=== PATIENT | male | born 1955 | race Caucasian/White ===

== ENCOUNTER 2018-12-13 10:29 | Day surgery (SDC) | payer OTHER, SELFPAY ==
--- NOTE | 2018-12-13 | PATH_ITS ---
[facility] Accession Number: [id number] . 01 Material submitted: . PART A: CECAL POLYP PART B: TRANSVERSE COLON POLYPS PART C: SIGMOID COLON POLYP . 02 Diagnosis: A. Cecal Polyp: Tubular adenoma; negative for high-grade dysplasia. . B. Transverse Colon Polyps: Portions of tubular adenoma x2; negative for high-grade dysplasia. . C. Sigmoid Colon Polyp: Serrated lesion, favor hyperplastic polyp. MRV/12/15/2018 . 02 Electronically signed: . Matilda Lee MD, Pathologist NPI- [id number] . 01 Gross description: . Part A: CECAL POLYP: Received in formalin is 1 fragment(s) of rowley, soft tissue measuring 0.4 x 0.2 x 0.2 cm submitted entirely in 1 cassette(s) Part B: TRANSVERSE COLON POLYPS: Received in formalin are 2 fragment(s) of rowley, soft tissue measuring 0.4 x 0.4 x 0.4 cm to 0.4 x 0.3 x 0.3 cm submitted entirely in 1 cassette(s) Part C: SIGMOID COLON POLYP: Received in formalin is 1 fragment(s) of rowley, soft tissue measuring 0.4 x 0.3 x 0.3 cm submitted entirely in 1 cassette(s) /CKI /CKI . 02 Pathologist provided ICD-10: K63.5 . 02 CPT . 040157, 931595, [id number] Performed at: [facility] [address], [place], [place] [id number] MD Rolando Davis MD Phone: [phone] [facility]formed at: [facility] [address] [place], [place] [id number] MD Regi Alanis MD Phone: [phone]
--- NOTE | 2018-12-13 08:20 | PM.HP.1 ---
History of Present Illness Date Patient Seen: 12/13/18 Chief complaint: [id number] Narrative: 63-year-old male here for colon polyp surveillance. Prior colonoscopy done 2013 with colon polyps. Report is not available. Meds Home Medications Medication Instructions Recorded Confirmed Type amlodipine [Norvasc] 5 mg PO QDAY #0 03/04/17 History losartan 1 tab PO DAILY 12/13/18 12/13/18 History rosuvastatin 1 tab PO DAILY 12/13/18 12/13/18 History tramadol 1 tab PO PRN PRN 12/13/18 12/13/18 History Allergies Allergy/AdvReac Type Severity Reaction Status Date / Time No Known Drug Allergies Allergy Unknown Verified 12/13/18 10:46 [NO KNOWN DRUG ALLERGIES] Exam Narrative Exam Narrative: General: Patient is overweight, not in apparent distress Cardiovascular: Regular rate and rhythm, no murmurs, rubs, or gallops; no evidence of edema; no palpable abdominal aortic aneurysm Gastrointestinal: Normoactive bowel sounds, soft, nontender, nondistended, no rebound tenderness, no hepatosplenomegaly, no evidence of hernia Assessment & Plan Assessment Narrative: 63-year-old male with history of colon polyps in 2013 here for polyp surveillance Regarding the procedure(s), the risks and potential complications, benefits, and alternatives (including not doing the procedure) were discussed with the patient. The risks include but are not limited to bleeding, splenic injury, infection, perforation which may require surgical intervention, missed lesions, and adverse reactions to sedative medicines. After a question and answer period, the patient agreed to proceed with the procedure(s) and gives informed consent.
[2018-12-13] MEDS: SODIUM CHLORIDE 0.9% 1,000 ML 70 ML IV (10:45)
[2018-12-13 10:47] VITALS: BP 169/80; PULSE 75; RESP 16; TEMP 37; O2SAT 97; BMI 35.2
[2018-12-13] MEDS: fentaNYL 250 MCG/5 ML INJ IV (11:21)
[2018-12-13] MEDS: MIDAZOLAM 5 MG/5 ML VIAL IV (11:23)
--- NOTE | 2018-12-13 11:31 | PM.OP.ENDO ---
Operative Date/Time/Diagnoses Date of procedure: 12/13/18 Procedure Notes Procedure in detail: Surgeon: Haile Aguillon MD Procedure: Colonoscopy with polypectomy Preoperative diagnosis: Colon polyp surveillance Postoperative diagnosis: Colon polyps x4 status post polypectomy, sigmoid diverticulosis, grade 2 internal hemorrhoids Medications: Conscious sedation using 6 mg IV of Midazolam and 100 mcg IV of Fentanyl Preanesthesia Assessment An H and P was performed/updated and the Px?s ASA class is 2. The procedure was discussed in detail with the patient. The potential risks and complications including infection, bleeding, missed lesions, perforation, need for surgery in case of perforation, prolonged hospital stay, and were explained. A brief question and answer period was allotted and once all questions were answered, informed consent was obtained. The patient was brought back to the procedure room and placed on standard monitoring. The patient?s vital signs were monitored continuously throughout the entire procedure. Prior to starting, a timeout was performed to confirm the patient?s identity, allergies, medications, and procedure. Procedure in detail The patient was placed in left lateral decubitus position and once adequate sedation was obtained a VIC was performed. The digital rectal examination did not reveal any palpable lesions. The tip of the colonoscope was placed in the anal canal and advanced without difficulty all the way to the cecum which was identified by the appendiceal orifice and the ileocecal valve. Careful examination of all yanes of the colon was performed with irrigation of any residual stool. In the cecum, there was note of a 5 mm sessile polyp which was removed by means of cold snare. Resection and retrieval was complete with minimal bleeding In the transverse colon, there was note of 2 sessile polyps measuring 2-3 mm which were removed by means of cold Jumbo forceps. Resection and retrieval was complete with minimal bleeding In the sigmoid colon there was note of a sessile polyp measuring 3 mm which was removed by means of cold Jumbo forceps. Resection and retrieval was complete with minimal bleeding There was note of multiple medium-sized diverticula in the sigmoid colon Retroflexion was performed in the rectum which revealed grade 2 internal hemorrhoids The patient tolerated the procedure well and will be brought back to the recovery area to be discharged once criteria are met. The prep was judged to be good/excellent and adequate to identify polyps less than 5 mm. The withdrawal time was 9 min. The total physician intraservice time was 13 min. Complications There were no complications and estimated blood loss was minimal. Recommendations: Resume previous diet Continue outPx medications Follow up pathology results Repeat colonoscopy in 3 or 5 years depending on pathology results An emergency contact number was given to the patient for any complications related to the procedure
[2018-12-13 11:33] VITALS: BP 121/79; PULSE 90; RESP 16; TEMP 36.6; O2SAT 94
--- NOTE | 2018-12-13 11:36 | PM.DS.1 ---
History of Present Illness Chief complaint: [id number] Narrative: 63-year-old male here for colon polyp surveillance. Prior colonoscopy done 2012 with colon polyps. Report is not available. Discharge Providers Primary care physician: Mick Bunch MD Consults: 12/13/18 10:55 Consult to Respiratory Therapy Evaluate & Treat Comment: Physician Instructions: Evaluate and treat Discharge provider: Haile Aguillon MD Discharge Date: 12/13/18 Exam Vital Signs (past 8 hours): - 12/13/18 10:47 Temperature 98.6 F Pulse Rate 75 Respiratory Rate 16 Blood Pressure 169/80 H Pulse Oximetry 97 Oxygen Delivery Method Room Air Narrative Exam Narrative: General: Patient is obese, not in apparent distress Cardiovascular: Regular rate and rhythm, no murmurs, rubs, or gallops; no evidence of edema; no palpable abdominal aortic aneurysm Gastrointestinal: Normoactive bowel sounds, soft, nontender, nondistended, no rebound tenderness, no hepatosplenomegaly, no evidence of hernia Discharge Plan Discharge Plan Discharge comment: We will discharge you with a copy of your procedure report Discharge Med Rec/Prescriptions Prescriptions: Continued tramadol 50 mg tablet 1 tab PO PRN PRN (Reason: Pain, Moderate) RF: 0 losartan 100 mg tablet 1 tab PO DAILY RF: 0 rosuvastatin 10 mg tablet 1 tab PO DAILY RF: 0 Follow up/Referrals: Mick Bunch MD [Primary Care Provider] - Discharge Orders: Discharge (Order); Ordered 12/13/18 Ordered By: Haile Aguillon Provider Discharge Instructions Diet: Diet as Tolerated Visit Report/Discharge Packet Stand Alone Forms: Colonoscopy Result: [facility], Surgery Discharge Discharge Data Primary Care Provider: Mick Bunch V Attending Provider: Haile Aguillon
[2018-12-13 11:38] VITALS: BP 128/76; PULSE 87; RESP 15; O2SAT 92
[2018-12-13 11:41] VITALS: BP 125/77; PULSE 88; RESP 16; TEMP 36.6; O2SAT 93
[2018-12-13 11:55] VITALS: BP 130/76; PULSE 91; RESP 15; TEMP 36.7; O2SAT 95
== END 2018-12-13 12:01 | disposition home or self-care (01) ==
LOC: ENDO 10:31
PROVIDERS: PCP Internal Medicine; Visit Provider Internal Medicine Gastroenterology
PROC: 0DJD8ZZ Inspection of Lower Intestinal Tract, Via Natural or Artificial Opening Endoscopic (ICD-10-PCS; CPT 45378; principal; 2018-12-13 11:30)
DX: Z86.010 Personal history of colon polyps (principal); K57.30 Diverticulosis of large intestine without perforation or abscess without bleeding; K64.1 Second degree hemorrhoids; D12.0 Benign neoplasm of cecum; D12.3 Benign neoplasm of transverse colon; D12.5 Benign neoplasm of sigmoid colon
CPT/HCPCS: 45385; 45380; J2250; J3010

== ENCOUNTER → 2019-02-05 18:10 | Outpatient (CLI) | payer OTHER, SELFPAY ==
--- NOTE | 2019-02-05 18:15 | DI.MRI.S_ITS ---
PROCEDURE: MR KNEE RT WO CON INDICATIONS: RIGHT KNEE PAIN TECHNIQUE: Noncontrast sagittal PD fast spin echo and T2 fast spin echo with fat saturation, sagittal 3-D FLASH with fat saturation; coronal T1 spin echo and PD fast spin echo with fat saturation, and axial PD fast spin echo with fat saturation through the knee. COMPARISON: [facility], CR, XR KNEE ARTHRITIC SERIES BI, 01/15/2019, 7:08. FINDINGS: Image quality: Excellent. Menisci: There is extensive degenerative tearing of the medial meniscus including an inferior flap tear involving the body and posterior horn with mild herniation into the medial gutter. Degenerative signal extends in the posterior horn to the meniscal root ligament without rupture. The lateral meniscus demonstrates mild degenerative signal Cruciate ligaments: The anterior cruciate ligament is attenuated in appearance with intermediate signal intensity compatible with sequelae of a prior sprain or chronic myxoid degeneration. The majority of the fibers appear intact. The posterior cruciate ligament appears intact. Medial structures: The medial collateral ligament appears intact. The semimembranosus tendon insertions and meniscocapsular junction appear intact. Visualized portions of the pes anserinus tendons appear intact without associated bursal fluid collections. Lateral structures: The lateral collateral ligament, long and short heads of the biceps femoris tendon appear intact. The popliteus tendon appears intact. Iliotibial band appears normal. Anterior structures: The quadriceps and patellar tendons appear intact. Patellar alignment is normal. No femoral trochlear dysplasia or ventral trochlear prominence. No edema in the infrapatellar fat pad. Bones and cartilage: No bone marrow contusions or fractures. There is tricompartmental osteophytosis. Moderate cartilage thinning demonstrated in the medial compartment with chondral fissuring associated with subchondral edema along the medial femoral condyle and medial tibial plateau. In the lateral compartment, there is mild cartilage thinning with superficial chondral fissuring. In the patellofemoral compartment, there is mild to moderate cartilage thinning with superficial chondral fissuring. There cystic changes within the proximal tibia adjacent to the PCL insertion compatible with ganglion cysts. Joint space: There is p a small joint effusion. There are tiny filling defects in the suprapatellar recess compatible with small joint bodies or synovitis. There is a moderate-sized Gan's cyst with internal filling defects compatible with small joint bodies. Normal appearing synovial plicae are incidentally noted. IMPRESSION: 1. Extensive degenerative tearing of the medial meniscus as described. 2. Tricompartmental osteoarthritic changes most prominent within the medial compartment. 3. Small joint effusion with small joint bodies or synovitis in the suprapatellar recess. 4. Moderate-sized Gan's cyst with multiple small internal joint bodies. Dictated by: Rolando Sow M.D. on 02/06/2019 at 16:49 Approved by: Rolando Sow M.D. on 02/06/2019 at 16:57
== END ==
PROVIDERS: PCP Internal Medicine; Visit Provider Orthopaedic Surgery
DX: M25.561 Pain in right knee (principal); M23.221 Derangement of posterior horn of medial meniscus due to old tear or injury, right knee; M17.11 Unilateral primary osteoarthritis, right knee; M25.461 Effusion, right knee; M71.21 Synovial cyst of popliteal space [Baker], right knee
CPT/HCPCS: 73721

== ENCOUNTER → 2019-02-28 17:17 | Outpatient (CLI) | payer OTHER, SELFPAY ==
[2019-02-28 17:54] LABS: Add Manual Diff / Slide Review NO; Basophils Absolute Auto 100 /uL (0-100); Basophils Percent Auto 0.8 % (0-2); Eosinophils Absolute Auto 400 /uL (0-450); Eosinophils Percent Auto 4.9 % (2-4); Hematocrit 41.8 % (41-53); Hemoglobin 13.9 g/dL (13.5-17.5); Lymphocytes Absolute Auto 2800 /uL (1100-4500); Lymphocytes Percent Auto 35.9 % (25-40); Mean Corpuscular HGB Conc 33.3 % (30-36); Mean Corpuscular Hemoglobin 30.1 PG (26-34); Mean Corpuscular Volume 90.2 fL (80-100); Monocytes Absolute Auto 1100 /uL (0-900); Monocytes Percent Auto 14.1 % (3-14); Neutrophils Absolute Auto 3500 /uL (1500-7000); Neutrophils Percent Auto 44.3 % (50-75); Platelet Count 235 X10^3/uL (150-400); Red Blood Cell Count 4.63 X10^6/uL (4.5-5.9); Red Cell Distribution Width 13.6 % (11.6-14.8); White Blood Cell Count 7.8 X10^3/uL (4.5-11.0)
[2019-02-28 18:31] LABS: Carbon Dioxide 27 mmol/L (22-32); Chloride 105 mmol/L (98-107); HEMOLYSIS < 15 (0-50); Potassium 4.6 mmol/L (3.4-5.1); Sodium 141 mmol/L (137-145)
== END ==
PROVIDERS: PCP Internal Medicine; Visit Provider Orthopaedic Surgery
DX: M17.10 Unilateral primary osteoarthritis, unspecified knee (principal); Z01.818 Encounter for other preprocedural examination; Z01.812 Encounter for preprocedural laboratory examination
CPT/HCPCS: 36415; 80051; 85025

== ENCOUNTER 2019-04-11 07:03 | Inpatient (IN) | payer OTHER, SELFPAY ==
[2019-03-26 07:24] VITALS: BMI 34.4
[2019-04-11] VITALS (14 sets, daily range): BP systolic 104–156; BP diastolic 51–89; PULSE 58–77; RESP 12–20; TEMP 36.1–36.9; O2SAT 93–98; BMI 34.4
--- NOTE | 2019-04-11 06:00 | DI.RAD.S_ITS ---
PROCEDURE: XR KNEE RT 1TO2V INDICATIONS: RIGHT TOTAL KNEE TECHNIQUE: 2 view(s) of the knee acquired. COMPARISON: None. FINDINGS: Bones: Patient is status post knee joint arthroplasty. Hardware components are in expected positions. Visualized bony structures are intact. Soft tissues: Overlying postoperative changes are noted. IMPRESSION: Post right total knee arthroplasty changes with anatomic right knee alignment. Dictated by: Bin Bernal M.D. on 04/11/2019 at 11:23 Approved by: Bin Bernal M.D. on 04/11/2019 at 11:23
--- NOTE | 2019-04-11 08:33 | PM.PREOP ---
Pre-operative Note Interval Note History & Physical reviewed/Exam performed by Physician: Yes Changes to H&P: No
[2019-04-11] MEDS: LACTATED RINGERS 1,000 ML 42 ML IV ×2 (08:34→09:43)
[2019-04-11] MEDS: MIDAZOLAM 2 MG/2 ML VIAL IV (08:35)
--- NOTE | 2019-04-11 08:35 | P.OP_ITS ---
Operative Date/Time/Diagnoses Date of procedure: 04/11/19 Time of procedure: 10:14 Pre-op diagnosis: Right knee osteoarthritis Post-op diagnosis: same Procedure & Clinicians Procedure: Right total knee arthroplasty Same procedure as scheduled: Yes Indications: The patient presents today for total knee arthroplasty after failure of conservative treatment. The nature of the procedure including the risks and benefits, alternatives, postoperative course and expected outcome were discussed and all questions answered. Consent was obtained. Operative site confirmed and marked. Surgeon: Rolando Briggs Director Professional Services: Surinder Linton Anesthesia Type: Spinal and Local Operative Notes Findings: Severe osteoarthritis with varus alignment. Closure Type: primary Specimen(s): none sent Prosthetic devices, grafts, tissues, transplants, or devices: [employer] Amy BCS: 6 femoral component, 5 tibial component, 9 mm BCS polyethylene tray and 35 x 9 mm round patella Applied: implant(s) Estimated Blood Loss (mL): 50 Blood products transfused: none Tourniquet time (min): 23 Procedure in detail: The patient was taken to the operative suite and placed under spinal anesthesia. The patient was given prophylactic antibiotics prior to surgery. The patient was also given tranexamic acid, 1 g, just prior to surgery for postoperative hemostasis. The lateral knee was prepped and the joint injected with 20 mL of 1% Lidocaine with epinephrine. The knee was then prepped and draped in usual sterile fashion. The leg was exsanguinated with an Esmarch dressing and the tourniquet raised to 250 torr. A 15 cm anterior incision was made. Next a medial trivector arthrotomy was made. The extensor mechanism was marked to ensure accurate repair. Initial exposing dissection was carried out medially and laterally. The knee was then extended and the patellar thickness was measured and a cut made removing approximately 9 mm of bone with a goal of restoring normal patellar thickness. The patella was then sized and drilled. Some excess lateral bone was excised and the patellofemoral ligament released. The tourniquet was then released. The knee was then flexed and the [employer] femoral guide was placed. The anterior pins were placed and the distal rotation holes drilled. The distal cutting guide was placed and the templated distal femoral cut was made. The templating cutting block was then placed and the anterior, posterior and chamfer cuts made. The [employer] tibial guide was placed and the alignment checked along the axis of the proximal tibial with a logan. The proximal tibial cut was then made with an oscillating saw. All meniscus and bony debris was then removed. Flexion extension gaps were checked. No specific balancing was required other than routine exposure and removal of osteophytes. The soft tissues were then injected with a combination of 20 mL of half percent Marcaine with epinephrine and 20 mL of Exparel. The trial components were then placed. The knee went into full extension and flexion beyond 120?. There was excellent medial- lateral balance throughout motion. Patellar tracking was excellent. The trial components were removed and size is confirmed for the final implants. The knee was then exsanguinated with an Esmarch dressing and the tourniquet reapplied for cementing. The knee was cleansed with Pulsavac irrigation and dried. The final components were cemented in with high viscosity vacuum mixed bone cement with antibiotics. The knee was held in extension and the patellar clamp until the cement had adequately cured. The knee was then irrigated with dilute Betadine solution. The extensor mechanism was closed with 5 interrupted #1 Vicryl sutures in 90 degrees of flexion. The joint was then injected with a combination of 1 g of tranexamic acid and 20 mL of quarter percent Marcaine with epinephrine. The subcutaneous tissue was closed with 2-0 Vicryl. The skin was closed with larissa and surgical adhesive. An Aquacel dressing and Herb wrap were then applied. Complications: none Condition: stable Disposition: PACU Plan for aftercare: [facility] protocol for total knee arthroplasty.
[2019-04-11] MEDS: CEFAZOLIN 2 GM/100 ML FROZ.PIGGY IV ×2 (08:40→16:01)
[2019-04-11] MEDS: LIDOCAINE 1% W/EPI INJ 20 ML INJ (09:00)
[2019-04-11] MEDS: TRANEXAMIC ACID 1,000 MG VIAL 1000 MG INJ (09:00)
--- NOTE | 2019-04-11 09:14 | SUR.OPER ---
Supine on padded OR bed. Pillow under head, arms secured on padded armboards <90 degree abduction. Safety belt across torso. Non-operative leg secured with tape over blanket over lower leg. Operative leg secured in DeMayo/Mikhail positioner. Foam padded brace at thigh of operative leg.
[2019-04-11] MEDS: BUPIVACAINE 0.25% W/ EPI 30 ML VIAL 60 ML INJ (09:24)
[2019-04-11] MEDS: BUPIVACAINE LIPOSOME 266 MG/20 ML VIAL INJ (09:25)
[2019-04-11] MEDS: BUPIVACAINE 0.25% W/ EPI (PF) 20 ML, TRANEXAMIC ACID 1,000 MG, SODIUM CHLORIDE 0.9% 10 ML INJ (09:26)
[2019-04-11] MEDS: POVIDONE-IODINE 15 ML, SODIUM CHLORIDE 0.9% 250 ML TOP (09:27)
[2019-04-11] MEDS: LACTATED RINGERS 1,000 ML 125 ML IV ×2 (12:16→21:12)
[2019-04-11] MEDS: ROSUVASTATIN 10 MG TABLET PO (12:17)
[2019-04-11] MEDS: ASPIRIN EC 81 MG TABLET PO ×2 (12:17→21:09)
[2019-04-11] MEDS: HYDROMORPHONE 0.5 MG INJ IV ×5 (12:20→18:17)
[2019-04-11] MEDS: ACETAMINOPHEN 325 MG TABLET 975 MG PO ×2 (12:20→21:09)
--- NOTE | 2019-04-11 12:34 | PT.IIE ---
Current Diagnoses Bilateral primary osteoarthritis of knee (04/11/19) Surgery Performed Operation Date: 04/11/19 08:45 Actual Procedures p Total Knee Arthroplasty(Right) - Rolando Briggs MD Surgical History (Last Updated 03/26/19 @ 08:36 by Meron Willett RN) No history of previous surgery (Acute) Medical History (Last Updated 03/26/19 @ 08:36 by Meron Willett RN) Bilateral bunions (Acute) Bilateral carpal tunnel syndrome (Acute) Bilateral knee pain (Acute) Colon polyps (Acute) Edema (Acute) Enlarged prostate (Acute) HLD (hyperlipidemia) (Acute) HTN (hypertension) (Acute) Hearing impaired (Acute) Nerve damage (Acute) RANJIT (obstructive sleep apnea) (Acute) Physical Therapy Inpatient Evaluation/Re-Eval M1 PT/OT-IP Prior Functional Status Start: 04/11/19 13:12 Freq: NEEDED Status: Active Protocol: Document 04/11/19 12:34 AB (Rec: 04/11/19 13:25 AB [id number]) Medical Review Prior Functional Status Medical History Reviewed Yes Communication able to make needs known Mobility and Gait pt stated that he is independent with all mobilities and ambulation without AD Social History Household Members spouse Living Arrangements House Number of Floors (Floors) Two Floors Number of Stairs To Enter/Railing? pt will stay on main level of the house has 2 steps with R side support (organ that he can hold on) Home Environment Standard Height Toilet Tub/Shower Home Equipment Four Wheel Walker Crutches Raised Toilet Seat w/Armrests Shower Seat without Backrest Hand Held Shower Employment Status [employer] Employed Additional Social History Comment pt works for the [employer] M2 PT-IP Current Condition Start: 04/11/19 13:12 Freq: NEEDED Status: Active Protocol: Document 04/11/19 12:34 AB (Rec: 04/11/19 13:25 AB [id number]) Physical Therapy Current Condition Current Condition Evaluation Date 04/11/19 Treatment Diagnosis s/p R TKA; difficulty in walking Onset Date 04/11/19 Weight Bearing Status Weight Bearing Status Weight Bear as Tolerated M3 PT-IP Subjective Start: 04/11/19 13:12 Freq: NEEDED Status: Active Protocol: Document 04/11/19 12:34 AB (Rec: 04/11/19 13:25 AB [id number]) Subjective Physical Therapy Visit Type Type Initial Evaluation Visit Start Time 12:34 Visit Stop Time 13:03 Total Visit Minutes 29 Number of SUPPLY CHAIN PROCUREMENT MANAGER Visits 0 Physical Therapy Visit Comments Patient Comments pt requesting to use the toilet Therapy Pain Assessment Pain When Pain Assessed At Rest Pain Present Pain Present Pain Reported Location right knee Intensity 3 Scale Used Numeric (1 - 10) Pain Management Techniques Timing of Activity with Medications M4 PT-IP Mobility and Gait Start: 04/11/19 13:12 Freq: NEEDED Status: Active Protocol: Document 04/11/19 12:34 AB (Rec: 04/11/19 13:25 AB [id number]) PT-Bed Mobility Assessment Supine to Sit Supine to Sit Standby Assistance Scooting Scooting to Edge of Bed Standby Assistance PT-Transfer Assessment Sit to and From Stand Sit to and from Stand Contact Guard Assistance Equipment Transfer Assistive Device Gait Belt Front Wheeled Walker Orthotic/Prosthetic Devices or Brace: No Transfers Transfer Destination Toilet Transfer Technique pt ambulated using FWW Transfer Ability Level of Assist Contact Guard Assistance Gait Assessment Gait Gait Assistance Required: Standby Assistance Distance (Feet) 15 Able to Maintain Weight Bearing Status Yes During Gait Assistive Devices Assistive Device Gait Belt Front Wheeled Walker Orthotic/Prosthetic Devices or Brace: No Gait Deviations General Gait Pattern Antalgic Decreased Stride Length Decreased Feet Clearance Factors Limiting Gait Function Factors Limiting Gait Function Decreased Activity Tolerance Decreased Strength Limited Range of Motion Pain Poor Balance Poor Safety Awareness PT-Balance Assessment Sitting Balance and Reactions Static Sitting Balance Ability Good Dynamic Sitting Balance Ability Good Standing Balance and Reactions Static Standing Balance Ability Fair Dynamic Standing Balance Ability Fair Device Used FWW M5 PT-IP Objective Assessments Start: 04/11/19 13:12 Freq: NEEDED Status: Active Protocol: Document 04/11/19 12:34 AB (Rec: 04/11/19 13:25 AB [id number]) Orientation Orientation/Cognition Level of Alertness Alert Orientation Name Place Situation Language Function Ability No Deficits Noted Memory Description No Deficits Noted Gross Range of Motion Lower Extremity ROM Impairments R knee flexion: ~70 deg Strength Lower Extremity Strength Assessment Right Impaired Knee 4-/5 Coordination Assessment Gross Coordination Gross Coordination WNL Sensation Assessment Sensation Gross Sensation WNL Muscle Tone Muscle Tone WNL Yes M6 PT-IP Treatment Start: 04/11/19 13:12 Freq: NEEDED Status: Active Protocol: Document 04/11/19 12:34 AB (Rec: 04/11/19 13:25 AB [id number]) Physical Therapy Treatment Exercises Exercises Heel Slides Education Education Provided Precautions Weight Bearing Status Post-Op Packet Safety M7 PT-IP Assessment and Plan Start: 04/11/19 13:12 Freq: NEEDED Status: Active Protocol: Document 04/11/19 12:34 AB (Rec: 04/11/19 13:25 AB [id number]) PT Summary Assessment and Plan Potential Rehabilitation Potential Good Status of Condition at Evaluation Stable Summary Impairments Pain ROM Strength Balance Coordination Sensation Tone Bed Mobility Transfers Gait Activity Tolerance Assessment Summary pt requiring CGA with mobility . spouse will be able to assist pt at home. will continue to do PT for increasing ambulation and stair training. pt still has to set up his outpt PT. Goals Bed Mobility Goal Independent Transfer Goal Independent Front Wheeled Walker Four Wheeled Walker Gait Goal Standby Assistance Front Wheel Walker Four Wheel Walker Gait Distance 150 Other Goals up/down 2 steps with R support /SPC/STEAMSHIP AGENT CGA Days to Meet Goals 3 Frequency of Treatment Frequency Of Treatment Twice a Day Treatment Plan Physical Therapy Treatment Plan Bed Mobility Training Transfer Training Gait Training Therapeutic Exercise Balance Retraining Post Op Education Discharge Planning Hot or Cold Pack Neuromuscular Re-ed Coordination Retraining Manual Therapy Other Recommendations and Next Treatment ambulation, stair climbing, Focus caregiver training Recommendations To Nursing Amount of Assist Needed 1 Person Assist Discharge Recommendations PT Discharge Recommendations Home with Assistance Outpatient PT Equipment Needed for Home Before FWW if not safe with 4WW Discharge SPC for stair climbing: spouse said that she will get one from the [employer]
[2019-04-11] MEDS: hydrOXYzine pamoate 25 MG CAPSULE PO (19:23)
[2019-04-11] MEDS: OXYCODONE IR 10 MG TABLET PO ×2 (19:23→22:23)
--- NOTE | 2019-04-11 22:09 | PC.NURSE ---
Pt's pain was 7-8/10 and was getting Dilaudid 0.5mg IV q1hr. Transitioned him to PO percolone 10mg. pt reports percolone worked better and he was able to take a nap.
[2019-04-12] VITALS (8 sets, daily range): BP systolic 119–154; BP diastolic 66–84; PULSE 68–83; RESP 16–18; TEMP 37–37.6; O2SAT 92–98
[2019-04-12] MEDS: CEFAZOLIN 2 GM/100 ML FROZ.PIGGY IV (01:31)
[2019-04-12] MEDS: OXYCODONE IR 10 MG TABLET PO ×7 (01:34→21:49)
[2019-04-12] MEDS: NAPROXEN 250 MG TABLET 500 MG PO (08:29)
[2019-04-12] MEDS: ASPIRIN EC 81 MG TABLET PO ×2 (08:30→21:25)
[2019-04-12] MEDS: LOSARTAN 50 MG TABLET 100 MG PO (08:30)
[2019-04-12] MEDS: ROSUVASTATIN 10 MG TABLET PO (08:37)
[2019-04-12] MEDS: ACETAMINOPHEN 325 MG TABLET 975 MG PO ×3 (08:56→21:25)
[2019-04-12 09:02] LABS: Hematocrit 38.3 % (41-53); Hemoglobin 12.8 g/dL (13.5-17.5)
--- NOTE | 2019-04-12 09:03 | CM.IDA ---
Initial DCP Assessment Note: Pt is a 63 yo male, resident of [place], now POD#1 from Rt knee surgery w/ Dr Briggs . PCP: Dr Alivia Hennessy: Gerardo Reviewed chart. Therapy has cleared pt for return home w/family to assist and pt has planned for home, DC order from [facility] likely pending this morning. No needs expected from DC planning team although will remain available in case this changes today. MOISÉS Lomax Discharge Planning/Care Management CM Discharge Assessment Start: 04/12/19 09:00 Freq: Status: Active Protocol: Document 04/12/19 09:00 CRISTAL (Rec: 04/12/19 09:02 [id number]) Discharge Planning Assessment Assigned Reports Analysis Manager MOISÉS Smallwood DPOA/Assigned Designee Name Alicia Guardado, spouse Contact Information [phone], Advance Directives? Yes Advance Directives on File No History Provided By Patient Significant Other Medical Record Prior Living Arrangements House Household Members spouse Type of transporation used prior to Drives own vehicle admit Independent with ADL's Yes Is patient alert and oriented? Yes Barriers to Discharge No Discharge Plan Home Transportation Arrangement Family Referrals Initiated None needed Review Status In Process
[2019-04-12] MEDS: hydrOXYzine pamoate 25 MG CAPSULE PO (09:21)
--- NOTE | 2019-04-12 09:33 | PT.IPTN ---
Current Diagnoses Bilateral primary osteoarthritis of knee (04/11/19) Surgery Performed Operation Date: 04/11/19 08:45 Actual Procedures p Total Knee Arthroplasty(Right) - Rolando Briggs MD Physical Therapy Treatment Note M2 PT-IP Current Condition Start: 04/11/19 13:12 Freq: NEEDED Status: Active Protocol: Document 04/11/19 12:34 AB (Rec: 04/11/19 13:25 AB [id number]) Physical Therapy Current Condition Current Condition Evaluation Date 04/11/19 Treatment Diagnosis s/p R TKA; difficulty in walking Onset Date 04/11/19 Weight Bearing Status Weight Bearing Status Weight Bear as Tolerated M3 PT-IP Subjective Start: 04/11/19 13:12 Freq: NEEDED Status: Active Protocol: Document 04/12/19 09:33 AB (Rec: 04/12/19 10:36 AB [id number]) Subjective Physical Therapy Visit Type Type Treatment Note Visit Start Time 09:33 Visit Stop Time 10:09 Total Visit Minutes 36 Number of TRADING ANALYST Visits 0 Physical Therapy Visit Comments Patient Comments pt agreeable to do PT Therapy Pain Assessment Pain When Pain Assessed At Rest Pain Present Pain Present Pain Reported Location right knee Intensity 4 Scale Used increases [facility] mobility Pain Management Techniques Re-positioning Timing of Activity with Medications M4 PT-IP Mobility and Gait Start: 04/11/19 13:12 Freq: NEEDED Status: Active Protocol: Document 04/12/19 09:33 AB (Rec: 04/12/19 10:36 AB [id number]) PT-Bed Mobility Assessment Supine to Sit Supine to Sit Standby Assistance Sit to Supine Sit to Supine Standby Assistance PT-Transfer Assessment Sit to and From Stand Sit to and from Stand Minimal Assistance 1 Person Assistance Use of Upper Extremities Equipment Transfer Assistive Device Gait Belt Front Wheeled Walker Orthotic/Prosthetic Devices or Brace: No Transfers Transfer Destination Bed Toilet Transfer Technique pt ambulated using FWW Transfer Ability Level of Assist Moderate Assistance 1 Person Assistance Use of Upper Extremities Comments Mobility Comments pt sitting on chair. completed heels slides prior to getting up. required min A for sit to stand from chair and cues. pt ambulated to the bed ~ 12 ft using FWW min to mod A and cues. pt with decrease weight bearing on RLE . presents with unsteady antalgic gait and with slight R knee buckling. pt completed supine<>sit SBA and cues. educated pt and spouse regarding equipement recommendation and that pt is safer to use a FWW compared to a 4WW at this time due to pt' s needing to use alot of his UE for support during standing and ambulation. pt also stated that he will use crutches for stair climbing. attempted up/down one step with bilateral crutches but pt unable to complete. informed pt and pt's spouse regarding ramp recommendation at this time. pt will try to have his son put in a ramp. also wants to purchase a FWW if pt is going home today but if not, she will just borrow one. Gait Assessment Gait Gait Assistance Required: Minimum Assistance Distance (Feet) 15 Able to Maintain Weight Bearing Status Yes During Gait Assistive Devices Assistive Device Gait Belt Front Wheeled Walker Orthotic/Prosthetic Devices or Brace: No Gait Deviations General Gait Pattern Antalgic Decreased Stride Length Decreased Feet Clearance Factors Limiting Gait Function Factors Limiting Gait Function Decreased Activity Tolerance Decreased Strength Limited Range of Motion Pain Poor Balance Poor Safety Awareness Comments Gait Comments pt ambulated from the bed to the toilet ~ 15 ft CGA to min A and cues. left pt with call light . informed nurse that pt wants to sit on the toilet for a while. M5 PT-IP Objective Assessments Start: 04/11/19 13:12 Freq: NEEDED Status: Active Protocol: Document 04/11/19 12:34 AB (Rec: 04/11/19 13:25 AB [id number]) Orientation Orientation/Cognition Level of Alertness Alert Orientation Name Place Situation Language Function Ability No Deficits Noted Memory Description No Deficits Noted Gross Range of Motion Lower Extremity ROM Impairments R knee flexion: ~70 deg Strength Lower Extremity Strength Assessment Right Impaired Knee 4-/5 Coordination Assessment Gross Coordination Gross Coordination WNL Sensation Assessment Sensation Gross Sensation WNL Muscle Tone Muscle Tone WNL Yes M6 PT-IP Treatment Start: 04/11/19 13:12 Freq: NEEDED Status: Active Protocol: Document 04/12/19 09:33 AB (Rec: 04/12/19 10:36 AB [id number]) Physical Therapy Treatment Exercises Exercises Heel Slides Education Education Provided Safety M7 PT-IP Assessment and Plan Start: 04/11/19 13:12 Freq: NEEDED Status: Active Protocol: Document 04/12/19 09:33 AB (Rec: 04/12/19 10:36 AB [id number]) PT Summary Assessment and Plan Potential Rehabilitation Potential Fair Summary Impairments Pain ROM Strength Balance Coordination Sensation Tone Bed Mobility Transfers Gait Activity Tolerance Progress Towards Goals Slow Progress due to Pain Assessment Summary pt requiring CGA to mod A with mobility. unable to complete stair climbing at this thime. pt plans to go home with spouse to assist him but spouse unable to assist pt with stair climbing. pt wants to go home today but pt is not ready to go home this morning. will assess this afternoon. pt has 2 steps to enter his house without rails and pt unable to complete stairs at this time. Goals Bed Mobility Goal Independent Transfer Goal Independent Front Wheeled Walker Four Wheeled Walker Gait Goal Standby Assistance Front Wheel Walker Four Wheel Walker Gait Distance 150 Other Goals up/down 2 steps with R support /SPC/RUBBER WORKER CGA Days to Meet Goals 3 Frequency of Treatment Frequency Of Treatment Twice a Day Treatment Plan Physical Therapy Treatment Plan Bed Mobility Training Transfer Training Gait Training Therapeutic Exercise Balance Retraining Post Op Education Discharge Planning Hot or Cold Pack Neuromuscular Re-ed Coordination Retraining Manual Therapy Other Recommendations and Next Treatment ambulation, stair climbing, Focus caregiver training Recommendations To Nursing Amount of Assist Needed 1 Person Assist Discharge Recommendations PT Discharge Recommendations Home with Assistance Outpatient PT Equipment Needed for Home Before FWW if not safe with 4WW Discharge SPC for stair climbing: spouse said that she will get one from the [employer]
[2019-04-12] MEDS: HYDROMORPHONE 0.5 MG INJ IV (10:26)
--- NOTE | 2019-04-12 11:28 | PM.PNPO.1 ---
Subjective Date Patient Seen: 04/12/19 Time Patient Seen: 11:28 Interval history: Pain is been moderate to severe. Denies fever chills. No nausea vomiting. Up with Physical therapy this morning walked around the room a bed using walker. PT limited by his pain. His is home to assist him. Patient does have steps into his house. Has not worked with physical therapy on the steps yet. Exam Vital Signs (past 8 hours): - 04/12/19 05:32 04/12/19 07:34 04/12/19 07:45 Temperature 99.0 F 99.7 F H Pulse Rate 82 68 83 Respiratory Rate 18 16 18 Blood Pressure 154/78 H 141/84 H Pulse Oximetry 94 98 94 Fraction of Inspired Oxygen 21 Oxygen Delivery Method Room Air Oxygen Flow Rate 0 Narrative Exam Narrative: 63-year-old male resting comfortably in no apparent distress. Right knee dressing is clean, dry and intact. Calf is soft. Sensation grossly intact. Motor functions intact distal right lower extremity. Objective Labs Result Diagrams: 04/12/19 08:12 Labs: Laboratory Results - last 24 hr 04/12/19 08:12 Hgb 12.8 L Hct 38.3 L Assessment & Plan Post-op Postoperative Procedures Operation Date: 04/11/19 08:45 Actual Procedures Side Surgeon p Total Knee Arthroplasty Right Rolando Briggs MD Patient progressing as expected status post right total knee arthroplasty. Continue work on pain control and mobilize with physical therapy. May be able to be discharged this afternoon but likely tomorrow. Quality VTE Deep Vein Thrombosis/Pulmonary Embolism Present on Admission: No
--- NOTE | 2019-04-12 13:50 | PT.IPTN ---
Current Diagnoses Bilateral primary osteoarthritis of knee (04/11/19) Surgery Performed Operation Date: 04/11/19 08:45 Actual Procedures p Total Knee Arthroplasty(Right) - Rolando Briggs MD Physical Therapy Treatment Note M2 PT-IP Current Condition Start: 04/11/19 13:12 Freq: NEEDED Status: Active Protocol: Document 04/11/19 12:34 AB (Rec: 04/11/19 13:25 AB [id number]) Physical Therapy Current Condition Current Condition Evaluation Date 04/11/19 Treatment Diagnosis s/p R TKA; difficulty in walking Onset Date 04/11/19 Weight Bearing Status Weight Bearing Status Weight Bear as Tolerated M3 PT-IP Subjective Start: 04/11/19 13:12 Freq: NEEDED Status: Active Protocol: Document 04/12/19 13:50 AB (Rec: 04/12/19 15:39 AB [id number]) Subjective Physical Therapy Visit Type Type Treatment Note Visit Start Time 13:50 Visit Stop Time 14:03 Total Visit Minutes 13 Number of COMMUNITY OUTREACH WORKER Visits 0 Physical Therapy Visit Comments Patient Comments pt agreeable to do PT Therapy Pain Assessment Pain When Pain Assessed At Rest Pain Present Pain Present Pain Reported Location right knee Intensity 4 Scale Used increases with weight bearing to 6/10 Pain Management Techniques Apply Cold Re-positioning Timing of Activity with Medications M4 PT-IP Mobility and Gait Start: 04/11/19 13:12 Freq: NEEDED Status: Active Protocol: Document 04/12/19 13:50 AB (Rec: 04/12/19 15:39 AB [id number]) PT-Bed Mobility Assessment Supine to Sit Supine to Sit Standby Assistance Sit to Supine Sit to Supine Standby Assistance Scooting Scooting to Edge of Bed Standby Assistance PT-Transfer Assessment Sit to and From Stand Sit to and from Stand Contact Guard Assistance Equipment Transfer Assistive Device Gait Belt Front Wheeled Walker Orthotic/Prosthetic Devices or Brace: No Gait Assessment Gait Gait Assistance Required: Contact Guard Assist Minimum Assistance Distance (Feet) 75 Able to Maintain Weight Bearing Status Yes During Gait Assistive Devices Assistive Device Gait Belt Front Wheeled Walker Orthotic/Prosthetic Devices or Brace: No Gait Deviations General Gait Pattern Antalgic Decreased Stride Length Decreased Feet Clearance Factors Limiting Gait Function Factors Limiting Gait Function Decreased Activity Tolerance Decreased Strength Limited Range of Motion Pain Poor Balance Comments Gait Comments pt completed ambulation using FWW 75+ 30 ft CGA to min A and cues for quads activation. R knee slightly gives out during late stance phase of ambulation. M5 PT-IP Objective Assessments Start: 04/11/19 13:12 Freq: NEEDED Status: Active Protocol: Document 04/11/19 12:34 AB (Rec: 04/11/19 13:25 AB [id number]) Orientation Orientation/Cognition Level of Alertness Alert Orientation Name Place Situation Language Function Ability No Deficits Noted Memory Description No Deficits Noted Gross Range of Motion Lower Extremity ROM Impairments R knee flexion: ~70 deg Strength Lower Extremity Strength Assessment Right Impaired Knee 4-/5 Coordination Assessment Gross Coordination Gross Coordination WNL Sensation Assessment Sensation Gross Sensation WNL Muscle Tone Muscle Tone WNL Yes M6 PT-IP Treatment Start: 04/11/19 13:12 Freq: NEEDED Status: Active Protocol: Document 04/12/19 13:50 AB (Rec: 04/12/19 15:39 AB [id number]) Physical Therapy Treatment Exercises Exercises Heel Slides Education Education Provided Safety M7 PT-IP Assessment and Plan Start: 04/11/19 13:12 Freq: NEEDED Status: Active Protocol: Document 04/12/19 13:50 AB (Rec: 04/12/19 15:39 AB [id number]) PT Summary Assessment and Plan Potential Rehabilitation Potential Good Summary Impairments Pain ROM Strength Balance Coordination Sensation Bed Mobility Transfers Gait Activity Tolerance Progress Towards Goals Slow Progress due to Pain Assessment Summary pt requiring CGA to min A with mobility. pt will have his spouse to assist him at home and will conduct caregiver training when appropriate. also has to complete stair training prior to d/c . Goals Bed Mobility Goal Independent Transfer Goal Independent Front Wheeled Walker Four Wheeled Walker Gait Goal Standby Assistance Front Wheel Walker Four Wheel Walker Gait Distance 150 Other Goals up/down 2 steps with R support /SPC/LOKIE ENGINEER CGA Days to Meet Goals 3 Frequency of Treatment Frequency Of Treatment Twice a Day Treatment Plan Physical Therapy Treatment Plan Bed Mobility Training Transfer Training Gait Training Therapeutic Exercise Balance Retraining Post Op Education Discharge Planning Hot or Cold Pack Neuromuscular Re-ed Coordination Retraining Manual Therapy Other Recommendations and Next Treatment ambulation, stair climbing, Focus caregiver training Recommendations To Nursing Amount of Assist Needed 1 Person Assist Discharge Recommendations PT Discharge Recommendations Home with Assistance Outpatient PT Equipment Needed for Home Before FWW if not safe with 4WW Discharge SPC for stair climbing: spouse said that she will get one from the [employer]
[2019-04-13] MEDS: OXYCODONE IR 10 MG TABLET PO ×2 (01:02→05:33)
[2019-04-13 04:56] VITALS: BP 134/73; PULSE 84; RESP 16; TEMP 36.6; O2SAT 94
--- NOTE | 2019-04-13 05:52 | PC.NURSE ---
Declined ice packs to his Rt. knee. Requesting 10 mg. of Oxycodone. Pain level 4-5, 2 doses of 10 mg. admin. this shift. Will cont. POC & monitor.
[2019-04-13 08:15] VITALS: BP 160/70; PULSE 88; RESP 18; TEMP 37.8; O2SAT 95
[2019-04-13] MEDS: ASPIRIN EC 81 MG TABLET PO (08:52)
[2019-04-13] MEDS: ACETAMINOPHEN 325 MG TABLET 975 MG PO (08:52)
[2019-04-13] MEDS: LOSARTAN 50 MG TABLET 100 MG PO (08:53)
[2019-04-13] MEDS: NAPROXEN 250 MG TABLET 500 MG PO (08:53)
[2019-04-13] MEDS: ROSUVASTATIN 10 MG TABLET PO (08:53)
[2019-04-13] MEDS: OXYCODONE IR 5 MG TABLET PO (09:03)
--- NOTE | 2019-04-13 09:46 | PM.DS.1 ---
History of Present Illness Date Patient Seen: 04/13/19 Time Patient Seen: 09:46 Chief complaint: [id number] Total Knee Arthroplasty Narrative: See HPI in chart Discharge Providers Date of admission: 04/11/19 07:03 Discharge Date: 04/13/19 Primary care physician: Mick Bunch MD Consults: 04/11/19 11:13 Consult to Discharge Planning Routine Comment: Consult to Physical Therapy Evaluate & Treat Comment: Physician Instructions: postop TKA protocol Consult to Respiratory Therapy Evaluate & Treat Comment: Physician Instructions: Evaluate and treat Discharge provider: Yulia Gil PA-C Summary Discharge Diagnosis: s/p right total knee arthropalsty Hospital Course: The patient presented for total knee arthroplasty after failure of conservative treatment. The nature of the procedure including the risks and benefits, alternatives, postoperative course and expected outcome were discussed and all questions answered. Consent was obtained. Operative site was confirmed and marked. He was taken to the operating room and underwent right total knee arthroplasty with no complications. His post operative course was complicated by pain control on POD#1 that was limiting his mobility. However today he reports better control of his pain and has been able to mobilize. He is tolerating food and voiding independently. is available as caregiver. He has good supply of all of his medications at home provided preoperatively. Discharge to home with plans to follow up in 1 week outpatient. Status at Discharge Cognitive/behavioral status at discharge: oriented Functional status at discharge: uses cane/walker Overall status at discharge: patient is progressing back to baseline Exam Vital Signs (past 8 hours): - 04/13/19 04:56 04/13/19 08:15 Temperature 97.9 F 100.0 F H Pulse Rate 84 88 Respiratory Rate 16 18 Blood Pressure 134/73 160/70 H Pulse Oximetry 94 95 Fraction of Inspired Oxygen 21 Oxygen Delivery Method Room Air Oxygen Flow Rate 0 Narrative Exam Narrative: 63 year old male resting comfortably in chair. Alert and oriented in no acute distress. Dressing in place is clean, dry, and intact with no visible drainage. Neurovascularly intact in distal extremity with soft compressible calves bilaterally. Objective Labs Result Diagrams: 04/12/19 08:12 Discharge Plan Discharge Plan Patient Disposition: Home Discharge Med Rec/Prescriptions Prescriptions: New acetaminophen 325 mg Tablet 975 mg PO TID Qty: 60 RF: 0 aspirin 81 mg Tablet,Delayed Release (Dr/Ec) 81 mg PO BID Qty: 60 RF: 0 oxycodone 5 mg Tablet 5 mg PO Q4-6H PRN (Reason: Pain, Moderate (4-6)) Qty: 1 RF: 0 hydroxyzine pamoate 25 mg Capsule 25 mg PO Q6HR PRN (Reason: Nausea) Qty: 1 RF: 0 Continued tramadol 50 mg tablet 1 tab PO BID PRN (Reason: Pain) RF: 0 losartan 100 mg tablet 1 tab PO DAILY RF: 0 rosuvastatin 10 mg tablet 1 tab PO QAM RF: 0 etodolac 500 mg Tablet 500 mg PO QAM RF: 0 Follow up/Referrals: Rolando Briggs MD [Physician] - Mick Bunch MD [Primary Care Provider] - Provider Discharge Instructions Diet: Diet as Tolerated Activity: Weight bear as tolerated. Frequent short walks and ankle pumps recommended. Cold/Heat Therapy: Ice packs as needed Other treatments: Follow [employer] guide Skin/Wound/Dressing Care Report to your healthcare provider any signs of infection, such as:: chills, fever, unusual drainage and unusual redness Dressing: Leave dressing in place, will be removed at post operative visit. No soaking. Visit Report/Discharge Packet Instructions: DI for Knee Replacement Discharge Data Primary Care Provider: Mick Bunch V Attending Provider: Rolando Briggs Admit Date/Time: 04/11/19 07:03 Quality VTE Deep Vein Thrombosis/Pulmonary Embolism Present on Admission: No
--- NOTE | 2019-04-13 10:57 | PT.IPTN ---
Current Diagnoses Bilateral primary osteoarthritis of knee (04/11/19) Surgery Performed Operation Date: 04/11/19 08:45 Actual Procedures p Total Knee Arthroplasty(Right) - Rolando Briggs MD Physical Therapy Treatment Note M2 PT-IP Current Condition Start: 04/11/19 13:12 Freq: NEEDED Status: Active Protocol: Document 04/11/19 12:34 AB (Rec: 04/11/19 13:25 AB [id number]) Physical Therapy Current Condition Current Condition Evaluation Date 04/11/19 Treatment Diagnosis s/p R TKA; difficulty in walking Onset Date 04/11/19 Weight Bearing Status Weight Bearing Status Weight Bear as Tolerated M3 PT-IP Subjective Start: 04/11/19 13:12 Freq: NEEDED Status: Active Protocol: Document 04/13/19 10:20 GGD (Rec: 04/13/19 10:57 GGD [id number]) Subjective Physical Therapy Visit Type Type Treatment Note Visit Start Time 10:00 Visit Stop Time 10:20 Total Visit Minutes 20 Number of ROBOTICS TECHNICIAN Visits 1 Physical Therapy Visit Comments Patient Comments Pt states he is ready for D/C, he as ramp and FWW now. Therapy Pain Assessment Pain When Pain Assessed At Rest Pain Present Pain Present Denied Pain M4 PT-IP Mobility and Gait Start: 04/11/19 13:12 Freq: NEEDED Status: Active Protocol: Document 04/13/19 10:20 GGD (Rec: 04/13/19 10:57 GGD [id number]) PT-Transfer Assessment Sit to and From Stand Sit to and from Stand Standby Assistance Equipment Transfer Assistive Device Gait Belt Front Wheeled Walker Orthotic/Prosthetic Devices or Brace: No Transfers Transfer Destination Chair Transfer Ability Level of Assist Minimal Assistance 1 Person Assistance Use of Upper Extremities M5 PT-IP Objective Assessments Start: 04/11/19 13:12 Freq: NEEDED Status: Active Protocol: Document 04/11/19 12:34 AB (Rec: 04/11/19 13:25 AB [id number]) Orientation Orientation/Cognition Level of Alertness Alert Orientation Name Place Situation Language Function Ability No Deficits Noted Memory Description No Deficits Noted Gross Range of Motion Lower Extremity ROM Impairments R knee flexion: ~70 deg Strength Lower Extremity Strength Assessment Right Impaired Knee 4-/5 Coordination Assessment Gross Coordination Gross Coordination WNL Sensation Assessment Sensation Gross Sensation WNL Muscle Tone Muscle Tone WNL Yes M6 PT-IP Treatment Start: 04/11/19 13:12 Freq: NEEDED Status: Active Protocol: Document 04/13/19 10:20 GGD (Rec: 04/13/19 10:57 GGD [id number]) Physical Therapy Treatment Exercises Exercises Ankle Pumps Gluteal Sets Quad Sets Heel Slides Passive Knee Extension Hang Seated Knee Flexion/Extension M7 PT-IP Assessment and Plan Start: 04/11/19 13:12 Freq: NEEDED Status: Active Protocol: Document 04/13/19 10:20 GGD (Rec: 04/13/19 10:57 GGD [id number]) PT Summary Assessment and Plan Summary Assessment Summary Pt needing less assist with mobility. He has good home set up for home D/C. Frequency of Treatment Frequency Of Treatment Twice a Day Treatment Plan Physical Therapy Treatment Plan Bed Mobility Training Transfer Training Gait Training Therapeutic Exercise Balance Retraining Post Op Education Discharge Planning Hot or Cold Pack Neuromuscular Re-ed Coordination Retraining Manual Therapy Recommendations To Nursing Amount of Assist Needed 1 Person Assist Discharge Recommendations PT Discharge Recommendations Home with Assistance Outpatient PT
--- NOTE | 2019-04-13 11:32 | PC.NURSE ---
AM Shift pt AO, and eager to DC. Up SBA with FWW to BR, voiding and in taking ample fluids. Managing 5/10 pain with Tylenol and Oxycodone 5mg and decreases to 0-2/10. Friend in room and is ride home. DC instructions provided to patient, no PIV to remove, no questions remain, pt packed up and in personal clothing. VICE [employer] transferred pt by wheelchair to personal vehicle.
== END 2019-04-13 11:32 | disposition home or self-care (01) | DRG 470 ==
PROVIDERS: Admitting Provider Orthopaedic Surgery; PCP Internal Medicine; Visit Provider Orthopaedic Surgery
PROC: 0SRC0JZ Replacement of Right Knee Joint with Synthetic Substitute, Open Approach (ICD-10-PCS; CPT 27447; principal; 2019-04-11 08:45)
DX: M17.11 Unilateral primary osteoarthritis, right knee (principal); G47.33 Obstructive sleep apnea (adult) (pediatric); I10 Essential (primary) hypertension; E78.5 Hyperlipidemia, unspecified; Z87.891 Personal history of nicotine dependence
CPT/HCPCS: 36415; 73560; 85014; 85018; 94760; 94762; 97110; 97116; 97161; 97530; C1776; C9290; J0690; J1170; J2250; J2704; J3010

== ENCOUNTER 2019-05-14 13:45 | Outpatient (RCR) | payer OTHER, SELFPAY ==
[2019-04-11 11:30] VITALS: BMI 34.4
--- NOTE | 2019-04-17 16:30 | PT.OPPOC ---
Current Diagnoses Unilateral primary osteoarthritis, right knee (04/19/19) Pain in right knee (04/19/19) Muscle weakness (generalized) (04/19/19) Other abnormalities of gait and mobility (04/19/19) Provider Visit Care Team Role Provider Type Mick Bunch MD Primary Care Provider Physician Specialty: Internal Medicine Address: [address] [place] [address], [id number] Email: Rolando Briggs MD Attending Provider Physician Specialty: Orthopedic Surgery Address: [address] [place] [address], [id number] Email: [email or web address] Plan Of Care PT-OP-T Assessment and Plan Start: 04/16/19 17:22 Freq: Status: Active Protocol: Document 04/17/19 09:55 LRN (Rec: 04/17/19 10:36 LRN [id number]) Physical Therapy Assessment Rehab Potential Rehabilitation Potential Excellent Evaluation Complexity Number of Personal Factors/Comorbidities 1-2 Number of Body Systems Impaired 4 or More Clinical Presentation at Evaluation Evolving Impairments Impairments Activity Tolerance Balance Edema Gait Pain Posture ROM Soft Tissue Mobility Strength Goals Three Impairment Antalgic gait requiring use of an assisted device for gait Short Term Goal (STG) Pt will be able to ambulate without the use of an assistive device safely. STG Duration 05/17/19 Crm Marketing Specialist Goal (LTG) Pt will be able to ambulate with a normal gait pattern. LTG Duration 06/19/19 Two Impairment Lacks functional R knee AROM Short Term Goal (STG) Pt will be able to bend to squat for return to work. STG Duration 05/17/19 Senior Care Goal (LTG) Pt will be able to ambulate up /down stairs with a reciprical gait pattern with use of railing for balance. LTG Duration 06/19/19 One Impairment Lacks appropriate self care HEP Crm Marketing Specialist Goal (LTG) PT will be independent in a self care HEP appropriate for his level of function. LTG Duration 06/19/19 Assessment Summary Assessment Pt presents 5 days s/p R TKA, walking into the clinic independently with crutches. He demonstrates very limited R knee mobility due to pain that he describes as incision pain from the bandage pulling on the incision. He has moderate swelling in the entire R LE but is moving independently and safely with all transfers and gait. The pt appears to have a good pain tolerance and is expected to do well with therapy. The pt will benefit from skilled physical therapy to improve his R knee mobility, strength and function and progress his gait to normal on both level and stairs. Physical Therapy Plan Frequency and Duration Frequency of Treatment 2x/Week Plan of Care Start Date 04/17/19 Plan of Care End Date 06/19/19 Therapeutic Interventions Therapeutic Interventions Home Exercise Program Joint Mobilizations Lymphedema Management Manual Therapy Neuromuscular Re-education Patient/Caregiver Education Self-Care/Home Management Soft Tissue Mobilization Taping Therapeutic Exercises Modalities Cold Pack/Ice Massage Hot Packs Next Visit Focus/Plan Next Note Type Treatment Note Next Visit Plan S/P R TKA rehab: Focus on improving ROM and decreasing edema with progression of low level strengthening ex's as ROM improves. Gait training on level and stairs when appropriate. End with Cryocuff. STM and scar massage with removal of bandage. Discuss edema management. Plan of Care Dates Plan of Care Start Date 04/17/19 Plan of Care End Date 06/19/19 Please Sign and Return: I have reviewed this Plan of Care and certify that the skilled therapy services above are required to meet the patient?s needs. Physician Signature Date Printed Name and Credentials Clinical Instructor Signature Printed Name and Credentials
--- NOTE | 2019-04-17 16:30 | PT.OIE ---
Current Diagnoses Unilateral primary osteoarthritis, right knee (04/19/19) Pain in right knee (04/19/19) Muscle weakness (generalized) (04/19/19) Other abnormalities of gait and mobility (04/19/19) Past Medical History (Last Updated 03/26/19 @ 08:36 by Meron Willett RN) Bilateral bunions (Acute) Bilateral carpal tunnel syndrome (Acute) Bilateral knee pain (Acute) Colon polyps (Acute) Edema (Acute) Enlarged prostate (Acute) HLD (hyperlipidemia) (Acute) HTN (hypertension) (Acute) Hearing impaired (Acute) Nerve damage (Acute) RANJIT (obstructive sleep apnea) (Acute) Past Surgical History (Last Updated 03/26/19 @ 08:36 by Meron Willett RN) No history of previous surgery (Acute) Provider Visit Care Team Role Provider Type Mick Bunch MD Primary Care Provider Physician Specialty: Internal Medicine Address: [address] [place] [address] Email: Rolando Briggs MD Attending Provider Physician Specialty: Orthopedic Surgery Address: [address] [place] [address], [facility] Email: [email or web address] Physical Therapy Initial Evaluation PT-OP-A Visit Information Start: 04/16/19 17:22 Freq: Status: Active Protocol: Document 04/17/19 09:55 LRN (Rec: 04/17/19 10:36 LRN [id number]) Out-Patient Physical Therapy Visit Information Visit Information Visit Type Initial Evaluation Visit Start Time 09:55 Visit Stop Time 10:46 Total Visit Minutes 51 Visit Number 1 Number of AIR CREW MEMBER Visits 0 Evaluation Information Evaluation Date 04/17/19 Precautions Precautions High blood pressure under medications, but not yet controlled. Osteoarthritis in all joints, most severe currently at L knee. Enlarged Prostate. Bilateral carpal tunne. PT-OP-B Current Condition Start: 04/16/19 17:22 Freq: Status: Active Protocol: Document 04/17/19 09:55 LRN (Rec: 04/17/19 10:36 LRN [id number]) Current Condition History of Current Condition Onset Date 04/11/19 Current Complaints Pain in R knee all around History of Current Condition Pt is s/p R Unilateral knee arthroplasty 04/11/19. The pt was scheduled to stay in the hospital one day, but ended up staying 2 days due to pain in his L knee that was limiting his ability to ambulate stairs . Pt has a set of stairs to get in/out of his home and he states he is able to ambulate stairs one at a time independently with crutches. The pt ambulates into therapy to day with use of crutches and a normal although shortened step lengths. He is having constant throbbing pain around the R knee joint and limited in ability to bend at the knee due to what he states is incision pain from the bandage. The pt reports he is being consistent with his HEP and use of ice and elevation to help with his pain and swelling. Future Testing and Treatments Planned Recheck tomorrow. 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 Treatment Goals Patient/Caregiver Goals Pt goal is to be able to get in/out of boat to go fishing. Pt goal is to garden. Pt goal is to camp. Pt agreeable to work towards: 1) normal ambulation without use of cane, 2) normal stair ambulation without an assistive device but rail if needed, 3) to be able to squat as needed to return to work. 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 Current Functional Impairments (Reported) Functional Limitations- ADL's ADL's are slower and more painful. Functional Limitations- Mobility/Gait Gait with crutches. Stair ambulation one at a time . Functional Limitations- Work/School Estimated soonest return to work date, 05/23/19. 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 Personal Factors Other Personal Factors That May Effect Stairs to get to office. Therapy/Recovery Must be able to: Bend down, pick something off floor. Lift things, 60#. Stand tip toes. PT-OP-C Subjective Start: 04/16/19 17:22 Freq: Status: Active Protocol: Document 04/17/19 09:55 LRN (Rec: 04/17/19 17:23 LRN [id number]) Patient Questionnaires Lower Extremity Functional Scale LEFS Score 20 LEFS Impairment 60 to 79% Impaired (Score 17- 31) OP-PT Pain Assessment Location right knee Pain Location Details Around entire R knee Intensity 6 Scale Used Numeric (1 - 10) Description Throbbing PT-OP-G Mobility & Gait Start: 04/16/19 17:22 Freq: Status: Active Protocol: Document 04/17/19 09:55 LRN (Rec: 04/17/19 17:23 LRN [id number]) OP Gait Assessment Gait Gait Assistance Required: Independent Distance (Feet) 75 Able to Maintain Weight Bearing Status Yes During Gait Assistive Devices Assistive Device Forearm Crutches Orthotic/Prosthetic Devices or Brace: No Gait Deviations General Gait Pattern Antalgic Decreased Stride Length Flexed Trunk Factors Limiting Gait Function Factors Limiting Gait Function Decreased Activity Tolerance Decreased Strength Limited Range of Motion Pain Poor Balance Stair Climbing Evaluation Comments Stair Climbing Comments Pt notes he ambulates stair one step at a time with railing or crutches independently. PT-OP-J Posture/Palpation/Skin Start: 04/16/19 17:22 Freq: Status: Active Protocol: Document 04/17/19 09:55 LRN (Rec: 04/17/19 17:23 LRN [id number]) Posture Evaluation Comments Posture Comments Standing the pt stands with greater weight bearing on the LLE. Palpation Assessment Location R knee Palpation Location R knee anterior, posterior, lateral sides Palpation Findings Edema Soft Tissue Tightness Tenderness Palpation Details Increased temperature around the entire knee joint, from 2 above the bandage and at the level of the bandage below. Skin Assessment Other Assessments Skin Assessment Comments R Knee incision covered with full sealing bandage. PT-OP-K Range of Motion Start: 04/16/19 17:22 Freq: Status: Active Protocol: Document 04/17/19 09:55 LRN (Rec: 04/17/19 17:23 LRN [id number]) Knee Goniometric Range of Motion Knee Measured in Degrees Right Patient Position Supine Flexion Active (degrees) 75 Left Patient Position Supine Flexion Active (degrees) 117 Knee ROM Limitations Comments Extension is: Right - Lacking 11 deg's Left - Lacking 5 deg's Ankle and Foot Goniometric Range of Motion Ankle and Foot Measured in Degrees Right Active Testing Position Supine Dorsiflexion with Knee Extended 3 Plantarflexion 40 Left Active Testing Position Supine Dorsiflexion with Knee Extended 3 Plantarflexion 40 PT-OP-M Strength Start: 04/16/19 17:22 Freq: Status: Active Protocol: Document 04/17/19 09:55 LRN (Rec: 04/17/19 17:23 LRN [id number]) Hip Strength Hip Manual Muscle Testing Right Flexion (L2) 3- Fair- Left Flexion (L2) 5 Normal Knee Strength Knee Manual Muscle Testing Right Flexion (S2) 2 Poor Extension (L3) 2 Poor Reason Not Measured Pain Left Flexion (S2) 5 Normal Extension (L3) 5 Normal Ankle/Foot Strength Ankle and Foot Manual Muscle Testing Left Reason Not Measured WFL Right Reason Not Measured WFL PT-OP-Q Treatments Start: 04/16/19 17:22 Freq: Status: Active Protocol: Document 04/17/19 09:55 LRN (Rec: 04/17/19 17:23 LRN [id number]) Therapeutic Exercises Supine Exercises Ankle Pumps Supine Exercise Name Ankle pumps with leg elevated Side right Heel Slides Supine Exercise Name Assisted Heel Slides Side right Reps/Minutes 10x Quad Sets Supine Exercise Name QS with leg elevated Side right Reps/Minutes 10x Comments RLE raised on bolster Manual Therapy Treatment Manual Techniques LE Retrograde massage Type R LE Retrograde massage Body Location R LE Body Position Supine with R LE elevated Reps/Duration 3' Self-Care/Home Management Treatment Education Patient Education Home Exercise Program Other Education Discussed benefits of retrograde or lymphatic massage. Pt to ask daughter who is massage therapist to perform lymphatic massage on him. Activities Self-Care/Home Management Activities I/S pt to continue HEP with use of ice and elevation of LE to control edema. PT-OP-R Modalities Start: 04/16/19 17:22 Freq: Status: Active Protocol: Document 04/17/19 09:55 LRN (Rec: 04/17/19 17:23 LRN [id number]) Hot Pack/Cold Pack Treatment Cold Pack Location R knee surrounding joint Patient Position Supine Treatment Duration (minutes) 10 Patient Tolerance Good PT-OP-T Assessment and Plan Start: 04/16/19 17:22 Freq: Status: Active Protocol: Document 04/17/19 09:55 LRN (Rec: 04/17/19 10:36 LRN [id number]) Physical Therapy Assessment Rehab Potential Rehabilitation Potential Excellent Evaluation Complexity Number of Personal Factors/Comorbidities 1-2 Number of Body Systems Impaired 4 or More Clinical Presentation at Evaluation Evolving Impairments Impairments Activity Tolerance Balance Edema Gait Pain Posture ROM Soft Tissue Mobility Strength Goals Three Impairment Antalgic gait requiring use of an assisted device for gait Short Term Goal (STG) Pt will be able to ambulate without the use of an assistive device safely. STG Duration 05/17/19 Soda Dialyzer Goal (LTG) Pt will be able to ambulate with a normal gait pattern. LTG Duration 06/19/19 Two Impairment Lacks functional R knee AROM Short Term Goal (STG) Pt will be able to bend to squat for return to work. STG Duration 05/17/19 Soda Dialyzer Goal (LTG) Pt will be able to ambulate up /down stairs with a reciprical gait pattern with use of railing for balance. LTG Duration 06/19/19 One Impairment Lacks appropriate self care HEP Senior Care Goal (LTG) PT will be independent in a self care HEP appropriate for his level of function. LTG Duration 06/19/19 Assessment Summary Assessment Pt presents 5 days s/p R TKA, walking into the clinic independently with crutches. He demonstrates very limited R knee mobility due to pain that he describes as incision pain from the bandage pulling on the incision. He has moderate swelling in the entire R LE but is moving independently and safely with all transfers and gait. The pt appears to have a good pain tolerance and is expected to do well with therapy. The pt will benefit from skilled physical therapy to improve his R knee mobility, strength and function and progress his gait to normal on both level and stairs. Physical Therapy Plan Frequency and Duration Frequency of Treatment 2x/Week Plan of Care Start Date 04/17/19 Plan of Care End Date 06/19/19 Therapeutic Interventions Therapeutic Interventions Home Exercise Program Joint Mobilizations Lymphedema Management Manual Therapy Neuromuscular Re-education Patient/Caregiver Education Self-Care/Home Management Soft Tissue Mobilization Taping Therapeutic Exercises Modalities Cold Pack/Ice Massage Hot Packs Next Visit Focus/Plan Next Note Type Treatment Note Next Visit Plan S/P R TKA rehab: Focus on improving ROM and decreasing edema with progression of low level strengthening ex's as ROM improves. Gait training on level and stairs when appropriate. End with Cryocuff. STM and scar massage with removal of bandage. Discuss edema management.
--- NOTE | 2019-04-19 16:00 | PT.OTN ---
Current Diagnoses Unilateral primary osteoarthritis, right knee (04/19/19) Pain in right knee (04/19/19) Muscle weakness (generalized) (04/19/19) Other abnormalities of gait and mobility (04/19/19) Physical Therapy Treatment Note PT-OP-A Visit Information Start: 04/16/19 17:22 Freq: Status: Active Protocol: Document 04/19/19 09:55 LRN (Rec: 04/19/19 16:00 LRN [id number]) Out-Patient Physical Therapy Visit Information Visit Information Visit Type Treatment Note Visit Start Time 09:48 Visit Stop Time 10:31 Total Visit Minutes 53 Visit Number 2 Number of SINK MAKER Visits 0 Evaluation Information Evaluation Date 04/17/19 Precautions Precautions High blood pressure under medications, but not yet controlled. Osteoarthritis in all joints, most severe currently at L knee. Enlarged Prostate. Bilateral carpal tunne. PT-OP-B Current Condition Start: 04/16/19 17:22 Freq: Status: Active Protocol: Document 04/17/19 09:55 LRN (Rec: 04/17/19 10:36 LRN [id number]) Current Condition History of Current Condition Onset Date 04/11/19 Current Complaints Pain in R knee all around History of Current Condition Pt is s/p R Unilateral knee arthroplasty 04/11/19. The pt was scheduled to stay in the hospital one day, but ended up staying 2 days due to pain in his L knee that was limiting his ability to ambulate stairs . Pt has a set of stairs to get in/out of his home and he states he is able to ambulate stairs one at a time independently with crutches. The pt ambulates into therapy to day with use of crutches and a normal although shortened step lengths. He is having constant throbbing pain around the R knee joint and limited in ability to bend at the knee due to what he states is incision pain from the bandage. The pt reports he is being consistent with his HEP and use of ice and elevation to help with his pain and swelling. Future Testing and Treatments Planned Recheck tomorrow. 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 Treatment Goals Patient/Caregiver Goals Pt goal is to be able to get in/out of boat to go fishing. Pt goal is to garden. Pt goal is to camp. Pt agreeable to work towards: 1) normal ambulation without use of cane, 2) normal stair ambulation without an assistive device but rail if needed, 3) to be able to squat as needed to return to work. 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 Current Functional Impairments (Reported) Functional Limitations- ADL's ADL's are slower and more painful. Functional Limitations- Mobility/Gait Gait with crutches. Stair ambulation one at a time . Functional Limitations- Work/School Estimated soonest return to work date, 05/23/19. 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 Personal Factors Other Personal Factors That May Effect Stairs to get to office. Therapy/Recovery Must be able to: Bend down, pick something off floor. Lift things, 60#. Stand tip toes. PT-OP-C Subjective Start: 04/16/19 17:22 Freq: Status: Active Protocol: Document 04/19/19 09:55 LRN (Rec: 04/19/19 16:00 LRN [id number]) OP-PT Subjective Patient Comments Patient Comments Pt reports bandage replaced and can move his R knee so much better and is pleased. He has been doing his home ex's and elevating his leg. PT-OP-G Mobility & Gait Start: 04/16/19 17:22 Freq: Status: Active Protocol: Document 04/17/19 09:55 LRN (Rec: 04/17/19 17:23 LRN [id number]) OP Gait Assessment Gait Gait Assistance Required: Independent Distance (Feet) 75 Able to Maintain Weight Bearing Status Yes During Gait Assistive Devices Assistive Device Forearm Crutches Orthotic/Prosthetic Devices or Brace: No Gait Deviations General Gait Pattern Antalgic Decreased Stride Length Flexed Trunk Factors Limiting Gait Function Factors Limiting Gait Function Decreased Activity Tolerance Decreased Strength Limited Range of Motion Pain Poor Balance Stair Climbing Evaluation Comments Stair Climbing Comments Pt notes he ambulates stair one step at a time with railing or crutches independently. PT-OP-J Posture/Palpation/Skin Start: 04/16/19 17:22 Freq: Status: Active Protocol: Document 04/17/19 09:55 LRN (Rec: 04/17/19 17:23 LRN [id number]) Posture Evaluation Comments Posture Comments Standing the pt stands with greater weight bearing on the LLE. Palpation Assessment Location R knee Palpation Location R knee anterior, posterior, lateral sides Palpation Findings Edema Soft Tissue Tightness Tenderness Palpation Details Increased temperature around the entire knee joint, from 2 above the bandage and at the level of the bandage below. Skin Assessment Other Assessments Skin Assessment Comments R Knee incision covered with full sealing bandage. PT-OP-K Range of Motion Start: 04/16/19 17:22 Freq: Status: Active Protocol: Document 04/17/19 09:55 LRN (Rec: 04/17/19 17:23 LRN [id number]) Knee Goniometric Range of Motion Knee Measured in Degrees Right Patient Position Supine Flexion Active (degrees) 75 Left Patient Position Supine Flexion Active (degrees) 117 Knee ROM Limitations Comments Extension is: Right - Lacking 11 deg's Left - Lacking 5 deg's Ankle and Foot Goniometric Range of Motion Ankle and Foot Measured in Degrees Right Active Testing Position Supine Dorsiflexion with Knee Extended 3 Plantarflexion 40 Left Active Testing Position Supine Dorsiflexion with Knee Extended 3 Plantarflexion 40 PT-OP-M Strength Start: 04/16/19 17:22 Freq: Status: Active Protocol: Document 04/17/19 09:55 LRN (Rec: 04/17/19 17:23 LRN [id number]) Hip Strength Hip Manual Muscle Testing Right Flexion (L2) 3- Fair- Left Flexion (L2) 5 Normal Knee Strength Knee Manual Muscle Testing Right Flexion (S2) 2 Poor Extension (L3) 2 Poor Reason Not Measured Pain Left Flexion (S2) 5 Normal Extension (L3) 5 Normal Ankle/Foot Strength Ankle and Foot Manual Muscle Testing Left Reason Not Measured WFL Right Reason Not Measured WFL PT-OP-Q Treatments Start: 04/16/19 17:22 Freq: Status: Active Protocol: Document 04/19/19 09:55 LRN (Rec: 04/19/19 16:00 LRN [id number]) Therapeutic Exercises Supine Exercises Romy knee flex Supine Exercise Name Romy R knee flex with T-Ball Side right Equipment Used Red T-Ball R knee flex w/T-Ball Supine Exercise Name Active knee flex with T-Ball Side right Equipment Used Red T-Ball Reps/Minutes 3' SAQ Supine Exercise Name SAQ Side right Reps/Minutes 10x Comments V.cues to relax at ankle Ankle Pumps Supine Exercise Name Ankle pumps with leg elevated Side right Reps/Minutes 30 x Heel Slides Supine Exercise Name Assisted Heel Slides Side right Reps/Minutes 10x Quad Sets Supine Exercise Name QS with leg elevated Side right Reps/Minutes 10x Comments RLE raised on bolster, V.cues to relax at ankle Gait Training Gait Activity Posture with gait Description Postural corrections with gait Device Used Crutches - Bilateral and one Level of Assistance SBA Surface Level Distance/Duration 10' Treatment Focus Upright posture, equal step lengths, dec antalgic gait Comments Crutches had to be re-adjusted for height (5'8 height). Pt needs 2 crutches at this time due to L knee pain almost as much as R knee (operative) pain. Manual Therapy Treatment Manual Techniques Modified lymphatic massage Type R LE modified lymphatic massage Body Location R LE Body Position Supine Reps/Duration 8'' PT-OP-R Modalities Start: 04/16/19 17:22 Freq: Status: Active Protocol: Document 04/17/19 09:55 LRN (Rec: 04/17/19 17:23 LRN [id number]) Hot Pack/Cold Pack Treatment Cold Pack Location R knee surrounding joint Patient Position Supine Treatment Duration (minutes) 10 Patient Tolerance Good PT-OP-T Assessment and Plan Start: 04/16/19 17:22 Freq: Status: Active Protocol: Document 04/19/19 09:55 LRN (Rec: 04/19/19 16:00 LRN [id number]) Physical Therapy Assessment Assessment Summary Assessment Pt is 7 days post op R TKA. He has a new bandage covering the incision that is supposed to stay on as long as possible . His gait mechanics has improved with training. He is able to ambulate with less forward bend at the hips when WBing on the RLE due to better positioning with lengthened crutches. Elevation of the RLE helps to decrease swelling with improved coloration while elevated. Pt appears to be providing good self care for edema control at home. Pt tolerance to active ROM is much improved with new bandage of the knee. Pt is progressing well. Physical Therapy Plan Frequency and Duration Frequency of Treatment 2x/Week Plan of Care Start Date 04/17/19 Plan of Care End Date 06/19/19 Next Visit Focus/Plan Next Note Type Treatment Note Next Visit Plan S/P R TKA rehab: Focus on improving ROM and decreasing edema with progression of low level strengthening ex's as ROM improves. Recheck gait training on level. Stairs when appropriate. End with Cryocuff. Scar massage with removal of bandage, pt spouse and daughter (massage therapist) will perform STM/ lymphatic massage at home.
--- NOTE | 2019-04-24 11:22 | PT.OTN ---
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 The pt was scheduled to stay in the hospital one day, but ended up staying 2 days due to pain in his L knee that was limiting his ability to ambulate stairs . Pt has a set of stairs to get in/out of his home and he states he is able to ambulate stairs one at a time independently with crutches. The pt ambulates into therapy to day with use of crutches and a normal although shortened step lengths. He is having constant throbbing pain around the R knee joint and limited in ability to bend at the knee due to what he states is incision pain from the bandage. The pt reports he is being consistent with his HEP and use of ice and elevation to help with his pain and swelling. Future Testing and Treatments Planned Recheck tomorrow. 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 Treatment Goals Patient/Caregiver Goals Pt goal is to be able to get in/out of boat to go fishing. Pt goal is to garden. Pt goal is to camp. Pt agreeable to work towards: 1) normal ambulation without use of cane, 2) normal stair ambulation without an assistive device but rail if needed, 3) to be able to squat as needed to return to work. 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 Current Functional Impairments (Reported) Functional Limitations- ADL's ADL's are slower and more painful. Functional Limitations- Mobility/Gait Gait with crutches. Stair ambulation one at a time . Functional Limitations- Work/School Estimated soonest return to work date, 05/23/19. 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 Personal Factors Other Personal Factors That May Effect Stairs to get to office. Therapy/Recovery Must be able to: Bend down, pick something off floor. Lift things, 60#. Stand tip toes. PT-OP-C Subjective Start: 04/16/19 17:22 Freq: Status: Active Protocol: Document 04/24/19 11:12 SA (Rec: 04/24/19 11:22 SA [id number]) OP-PT Subjective Patient Comments Patient Comments Pt reports he is walking more and doing HEP daily. Has appointment with tomorrow to get stiches removed. PT-OP-G Mobility & Gait Start: 04/16/19 17:22 Freq: Status: Active Protocol: Document 04/17/19 09:55 LRN (Rec: 04/17/19 17:23 LRN [id number]) OP Gait Assessment Gait Gait Assistance Required: Independent Distance (Feet) 75 Able to Maintain Weight Bearing Status Yes During Gait Assistive Devices Assistive Device Forearm Crutches Orthotic/Prosthetic Devices or Brace: No Gait Deviations General Gait Pattern Antalgic Decreased Stride Length Flexed Trunk Factors Limiting Gait Function Factors Limiting Gait Function Decreased Activity Tolerance Decreased Strength Limited Range of Motion Pain Poor Balance Stair Climbing Evaluation Comments Stair Climbing Comments Pt notes he ambulates stair one step at a time with railing or crutches independently. PT-OP-J Posture/Palpation/Skin Start: 04/16/19 17:22 Freq: Status: Active Protocol: Document 04/17/19 09:55 LRN (Rec: 04/17/19 17:23 LRN [id number]) Posture Evaluation Comments Posture Comments Standing the pt stands with greater weight bearing on the LLE. Palpation Assessment Location R knee Palpation Location R knee anterior, posterior, lateral sides Palpation Findings Edema Soft Tissue Tightness Tenderness Palpation Details Increased temperature around the entire knee joint, from 2 above the bandage and at the level of the bandage below. Skin Assessment Other Assessments Skin Assessment Comments R Knee incision covered with full sealing bandage. PT-OP-K Range of Motion Start: 04/16/19 17:22 Freq: Status: Active Protocol: Document 04/17/19 09:55 LRN (Rec: 04/17/19 17:23 LRN [id number]) Knee Goniometric Range of Motion Knee Right Patient Position Supine Flexion Active (degrees) 75 Left Patient Position Supine Flexion Active (degrees) 117 Knee ROM Limitations Comments Extension is: Right - Lacking 11 deg's Left - Lacking 5 deg's Ankle and Foot Goniometric Range of Motion Ankle and Foot Right Active Testing Position Supine Dorsiflexion with Knee Extended 3 Plantarflexion 40 Left Active Testing Position Supine Dorsiflexion with Knee Extended 3 Plantarflexion 40 PT-OP-M Strength Start: 04/16/19 17:22 Freq: Status: Active Protocol: Document 04/17/19 09:55 LRN (Rec: 04/17/19 17:23 LRN [id number]) Hip Strength Hip Manual Muscle Testing Right Flexion (L2) 3- Fair- Left Flexion (L2) 5 Normal Knee Strength Knee Manual Muscle Testing Right Flexion (S2) 2 Poor Extension (L3) 2 Poor Reason Not Measured Pain Left Flexion (S2) 5 Normal Extension (L3) 5 Normal Ankle/Foot Strength Ankle and Foot Manual Muscle Testing Left Reason Not Measured WFL Right Reason Not Measured WFL PT-OP-Q Treatments Start: 04/16/19 17:22 Freq: Status: Active Protocol: Document 04/24/19 11:12 SA (Rec: 04/24/19 11:22 SA [email or web address]) Cardio Equipment Recumbent Stepper (Sci-Fit) Duration (Minutes) 5 Resistance 1.5 Therapeutic Exercises Supine Exercises HS/gastroc stretch Side right Reps/Minutes 30 x 2 Comments passive Romy knee flex Supine Exercise Name Romy R knee flex with T-Ball Side right Equipment Used Red T-Ball R knee flex w/T-Ball Supine Exercise Name Active knee flex with T-Ball Side right Equipment Used Red T-Ball Reps/Minutes 3' SAQ Supine Exercise Name SAQ Side right Reps/Minutes 10x Comments V.cues to relax at ankle Heel Slides Supine Exercise Name Active Heel Slides Side right Reps/Minutes 10x Quad Sets Supine Exercise Name QS with leg elevated Side right Reps/Minutes 10x Comments RLE raised on bolster, V.cues to relax at ankle Manual Therapy Treatment Manual Techniques Modified lymphatic massage Type R LE modified lymphatic massage Body Location R LE Body Position Supine Reps/Duration 10 PT-OP-R Modalities Start: 04/16/19 17:22 Freq: Status: Active Protocol: Document 04/24/19 11:12 SA (Rec: 04/24/19 11:22 SA [email or web address]) Hot Pack/Cold Pack Treatment Cold Pack Location R knee surrounding joint Patient Position Supine Treatment Duration (minutes) 10 Patient Tolerance Good Comments Cryo-cuff PT-OP-T Assessment and Plan Start: 04/16/19 17:22 Freq: Status: Active Protocol: Document 04/24/19 11:12 SA (Rec: 04/24/19 11:22 SA [email or web address]) Physical Therapy Assessment Assessment Summary Assessment AROM of R knee 10-95 degrees after exercise and STM. Pt encouraged to focus on EXT exercise at home as he admits he sometimes skips these. Tolerating ther ex well. Physical Therapy Plan Next Visit Focus/Plan Next Note Type Treatment Note Next Visit Plan S/P R TKA rehab: Focus on improving ROM and decreasing edema with progression of low level strengthening ex's as ROM improves. Recheck gait training on level. Stairs when appropriate. End with Cryocuff. Scar massage with removal of bandage, pt spouse and daughter (massage therapist) will perform STM/ lymphatic massage at home.
--- NOTE | 2019-05-01 15:41 | PT.OTN ---
Current Diagnoses Unilateral primary osteoarthritis, right knee (05/01/19) Pain in right knee (05/01/19) Muscle weakness (generalized) (05/01/19) Other abnormalities of gait and mobility (05/01/19) Physical Therapy Treatment Note PT-OP-A Visit Information Start: 04/16/19 17:22 Freq: Status: Active Protocol: Document 05/01/19 09:43 SAK (Rec: 05/01/19 10:34 SAK [id number]) Out-Patient Physical Therapy Visit Information Visit Information Visit Type Treatment Note Visit Start Time 09:45 Visit Stop Time 10:40 Total Visit Minutes 56 Visit Number 4 Number of LOAN BROKER Visits 0 Evaluation Information Evaluation Date 04/17/19 PT-OP-B Current Condition Start: 04/16/19 17:22 Freq: Status: Active Protocol: Document 04/17/19 09:55 LRN (Rec: 04/17/19 10:36 LRN [id number]) Current Condition History of Current Condition Onset Date 04/11/19 Current Complaints Pain in R knee all around History of Current Condition Pt is s/p R Unilateral knee arthroplasty 04/11/19. The pt was scheduled to stay in the hospital one day, but ended up staying 2 days due to pain in his L knee that was limiting his ability to ambulate stairs . Pt has a set of stairs to get in/out of his home and he states he is able to ambulate stairs one at a time independently with crutches. The pt ambulates into therapy to day with use of crutches and a normal although shortened step lengths. He is having constant throbbing pain around the R knee joint and limited in ability to bend at the knee due to what he states is incision pain from the bandage. The pt reports he is being consistent with his HEP and use of ice and elevation to help with his pain and swelling. Future Testing and Treatments Planned Recheck tomorrow. 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 Treatment Goals Patient/Caregiver Goals Pt goal is to be able to get in/out of boat to go fishing. Pt goal is to garden. Pt goal is to camp. Pt agreeable to work towards: 1) normal ambulation without use of cane, 2) normal stair ambulation without an assistive device but rail if needed, 3) to be able to squat as needed to return to work. 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 Current Functional Impairments (Reported) Functional Limitations- ADL's ADL's are slower and more painful. Functional Limitations- Mobility/Gait Gait with crutches. Stair ambulation one at a time . Functional Limitations- Work/School Estimated soonest return to work date, 05/23/19. 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 Personal Factors Other Personal Factors That May Effect Stairs to get to office. Therapy/Recovery Must be able to: Bend down, pick something off floor. Lift things, 60#. Stand tip toes. PT-OP-C Subjective Start: 04/16/19 17:22 Freq: Status: Active Protocol: Document 05/01/19 09:43 SAK (Rec: 05/01/19 10:34 SAK [id number]) OP-PT Subjective Patient Comments Patient Comments HEP 4-6x/day followed by icing with elevation. I want to get back to normal. PT-OP-G Mobility & Gait Start: 04/16/19 17:22 Freq: Status: Active Protocol: Document 04/17/19 09:55 LRN (Rec: 04/17/19 17:23 LRN [id number]) OP Gait Assessment Gait Gait Assistance Required: Independent Distance (Feet) 75 Able to Maintain Weight Bearing Status Yes During Gait Assistive Devices Assistive Device Forearm Crutches Orthotic/Prosthetic Devices or Brace: No Gait Deviations General Gait Pattern Antalgic Decreased Stride Length Flexed Trunk Factors Limiting Gait Function Factors Limiting Gait Function Decreased Activity Tolerance Decreased Strength Limited Range of Motion Pain Poor Balance Stair Climbing Evaluation Comments Stair Climbing Comments Pt notes he ambulates stair one step at a time with railing or crutches independently. PT-OP-J Posture/Palpation/Skin Start: 04/16/19 17:22 Freq: Status: Active Protocol: Document 04/17/19 09:55 LRN (Rec: 04/17/19 17:23 LRN [id number]) Posture Evaluation Comments Posture Comments Standing the pt stands with greater weight bearing on the LLE. Palpation Assessment Location R knee Palpation Location R knee anterior, posterior, lateral sides Palpation Findings Edema Soft Tissue Tightness Tenderness Palpation Details Increased temperature around the entire knee joint, from 2 above the bandage and at the level of the bandage below. Skin Assessment Other Assessments Skin Assessment Comments R Knee incision covered with full sealing bandage. PT-OP-K Range of Motion Start: 04/16/19 17:22 Freq: Status: Active Protocol: Document 04/17/19 09:55 LRN (Rec: 04/17/19 17:23 LRN [id number]) Knee Goniometric Range of Motion Knee Right Patient Position Supine Flexion Active (degrees) 75 Left Patient Position Supine Flexion Active (degrees) 117 Knee ROM Limitations Comments Extension is: Right - Lacking 11 deg's Left - Lacking 5 deg's Ankle and Foot Goniometric Range of Motion Ankle and Foot Right Active Testing Position Supine Dorsiflexion with Knee Extended 3 Plantarflexion 40 Left Active Testing Position Supine Dorsiflexion with Knee Extended 3 Plantarflexion 40 PT-OP-M Strength Start: 04/16/19 17:22 Freq: Status: Active Protocol: Document 04/17/19 09:55 LRN (Rec: 04/17/19 17:23 LRN [id number]) Hip Strength Hip Manual Muscle Testing Right Flexion (L2) 3- Fair- Left Flexion (L2) 5 Normal Knee Strength Knee Manual Muscle Testing Right Flexion (S2) 2 Poor Extension (L3) 2 Poor Reason Not Measured Pain Left Flexion (S2) 5 Normal Extension (L3) 5 Normal Ankle/Foot Strength Ankle and Foot Manual Muscle Testing Left Reason Not Measured WFL Right Reason Not Measured WFL PT-OP-Q Treatments Start: 04/16/19 17:22 Freq: Status: Active Protocol: Document 05/01/19 09:43 SAK (Rec: 05/01/19 10:34 SAK [id number]) Cardio Equipment Recumbent Elliptical (Biodex) Duration (Minutes) 5 Resistance 1 Seat Position 11 Bicycle (Upright) Duration (Minutes) 5 Resistance 1 Seat Position 6 to 5 Gym Equipment Shuttle Recovery Unilateral Squats Resistance 37 Reps/Time 10 Bilateral Squats Resistance 50 Shuttle Recovery Platform Stable Reps/Time 10 Therapeutic Exercises Supine Exercises gravity assisted knee flex Equipment Used slider sheet Reps/Minutes 6x Comments laying on shuttle leg press SAQ Supine Exercise Name SAQ Side right Reps/Minutes 10x Comments V.cues to relax at ankle Quad Sets Supine Exercise Name QS with leg elevated Side right Reps/Minutes 10x Comments RLE raised on bolster, V.cues to relax at ankle Standing Exercises Hs stretch Reps/Minutes 4x Comments stair stair lunge Reps/Minutes 10x knee extension Resistance L1 TB Reps/Minutes 10x hamstring curl Reps/Minutes 10x HC stretch Equipment Used PATY Reps/Minutes 2x Gait Training Gait Activity stair amb Comments 4 stairs, then 6: stairs gait without device Device Used none Surface level Treatment Focus symmetry, no limp Comments mirror for visual feedback Manual Therapy Treatment Manual Techniques Modified lymphatic massage Type R LE modified lymphatic massage Body Location R LE Body Position Supine Reps/Duration 10 PT-OP-R Modalities Start: 04/16/19 17:22 Freq: Status: Active Protocol: Document 05/01/19 09:43 [facility] (Rec: 05/01/19 10:34 [facility] [id number]) Hot Pack/Cold Pack Treatment Cold Pack Location R knee surrounding joint Patient Position Supine Treatment Duration (minutes) 10 Patient Tolerance Good Comments Cryo-cuff PT-OP-T Assessment and Plan Start: 04/16/19 17:22 Freq: Status: Active Protocol: Document 05/01/19 09:43 [facility] (Rec: 05/01/19 10:34 [facility] [id number]) Physical Therapy Assessment Goals Three Impairment Antalgic gait requiring use of an assisted device for gait Short Term Goal (STG) Pt will be able to ambulate without the use of an assistive device safely. STG Duration 05/17/19 Senior Living Goal (LTG) Pt will be able to ambulate with a normal gait pattern. LTG Duration 06/19/19 Two Impairment Lacks functional R knee AROM Short Term Goal (STG) Pt will be able to bend to squat for return to work. STG Duration 05/17/19 Asw/Asuw Tactical Air Controller Goal (LTG) Pt will be able to ambulate up /down stairs with a reciprical gait pattern with use of railing for balance. LTG Duration 06/19/19 One Impairment Lacks appropriate self care HEP Asw/Asuw Tactical Air Controller Goal (LTG) PT will be independent in a self care HEP appropriate for his level of function. LTG Duration 06/19/19 Assessment Summary Assessment AROM 9-102 at end of session. Given standing knee extension with theraband ex. Instructed to stop putting pillow under knee at night as much as possible. Physical Therapy Plan Frequency and Duration Frequency of Treatment 2x/Week Duration of Treatment 2 months Plan of Care Start Date 04/17/19 Plan of Care End Date 06/19/19 Therapeutic Interventions Therapeutic Interventions Home Exercise Program Joint Mobilizations Lymphedema Management Manual Therapy Neuromuscular Re-education Patient/Caregiver Education Self-Care/Home Management Soft Tissue Mobilization Taping Therapeutic Exercises Modalities Cold Pack/Ice Massage Hot Packs Next Visit Focus/Plan Next Note Type Treatment Note Next Visit Plan Continue TKA rehab. Further gait training, add backward walking to facilitate knee extension and consider prone knee extension stretch.
--- NOTE | 2019-05-04 11:43 | PT.OTN ---
Current Diagnoses Unilateral primary osteoarthritis, right knee (05/04/19) Pain in right knee (05/04/19) Muscle weakness (generalized) (05/04/19) Other abnormalities of gait and mobility (05/04/19) Physical Therapy Treatment Note PT-OP-A Visit Information Start: 04/16/19 17:22 Freq: Status: Active Protocol: Document 05/04/19 11:36 SA (Rec: 05/04/19 11:43 SA [email or web address]) Out-Patient Physical Therapy Visit Information Visit Information Visit Type Treatment Note Visit Start Time 10:30 Visit Stop Time 11:16 Total Visit Minutes 46 Visit Number 5 Number of AUXILIARY EQUIPMENT TENDER Visits 0 PT-OP-B Current Condition Start: 04/16/19 17:22 Freq: Status: Active Protocol: Document 04/17/19 09:55 LRN (Rec: 04/17/19 10:36 LRN [id number]) Current Condition History of Current Condition Onset Date 04/11/19 Current Complaints Pain in R knee all around History of Current Condition Pt is s/p R Unilateral knee arthroplasty 04/11/19. The pt was scheduled to stay in the hospital one day, but ended up staying 2 days due to pain in his L knee that was limiting his ability to ambulate stairs . Pt has a set of stairs to get in/out of his home and he states he is able to ambulate stairs one at a time independently with crutches. The pt ambulates into therapy to day with use of crutches and a normal although shortened step lengths. He is having constant throbbing pain around the R knee joint and limited in ability to bend at the knee due to what he states is incision pain from the bandage. The pt reports he is being consistent with his HEP and use of ice and elevation to help with his pain and swelling. Future Testing and Treatments Planned Recheck tomorrow. 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 Treatment Goals Patient/Caregiver Goals Pt goal is to be able to get in/out of boat to go fishing. Pt goal is to garden. Pt goal is to camp. Pt agreeable to work towards: 1) normal ambulation without use of cane, 2) normal stair ambulation without an assistive device but rail if needed, 3) to be able to squat as needed to return to work. 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 Current Functional Impairments (Reported) Functional Limitations- ADL's ADL's are slower and more painful. Functional Limitations- Mobility/Gait Gait with crutches. Stair ambulation one at a time . Functional Limitations- Work/School Estimated soonest return to work date, 05/23/19. 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 Personal Factors Other Personal Factors That May Effect Stairs to get to office. Therapy/Recovery Must be able to: Bend down, pick something off floor. Lift things, 60#. Stand tip toes. PT-OP-C Subjective Start: 04/16/19 17:22 Freq: Status: Active Protocol: Document 05/04/19 11:36 SA (Rec: 05/04/19 11:43 SA [email or web address]) OP-PT Subjective Patient Comments Patient Comments Pt presents in clinic with no AD and fairly normalized gait. Reports every day feels a litlle better. PT-OP-G Mobility & Gait Start: 04/16/19 17:22 Freq: Status: Active Protocol: Document 04/17/19 09:55 LRN (Rec: 04/17/19 17:23 LRN [id number]) OP Gait Assessment Gait Gait Assistance Required: Independent Distance (Feet) 75 Able to Maintain Weight Bearing Status Yes During Gait Assistive Devices Assistive Device Forearm Crutches Orthotic/Prosthetic Devices or Brace: No Gait Deviations General Gait Pattern Antalgic Decreased Stride Length Flexed Trunk Factors Limiting Gait Function Factors Limiting Gait Function Decreased Activity Tolerance Decreased Strength Limited Range of Motion Pain Poor Balance Stair Climbing Evaluation Comments Stair Climbing Comments Pt notes he ambulates stair one step at a time with railing or crutches independently. PT-OP-J Posture/Palpation/Skin Start: 04/16/19 17:22 Freq: Status: Active Protocol: Document 04/17/19 09:55 LRN (Rec: 04/17/19 17:23 LRN [id number]) Posture Evaluation Comments Posture Comments Standing the pt stands with greater weight bearing on the LLE. Palpation Assessment Location R knee Palpation Location R knee anterior, posterior, lateral sides Palpation Findings Edema Soft Tissue Tightness Tenderness Palpation Details Increased temperature around the entire knee joint, from 2 above the bandage and at the level of the bandage below. Skin Assessment Other Assessments Skin Assessment Comments R Knee incision covered with full sealing bandage. PT-OP-K Range of Motion Start: 04/16/19 17:22 Freq: Status: Active Protocol: Document 04/17/19 09:55 LRN (Rec: 04/17/19 17:23 LRN [id number]) Knee Goniometric Range of Motion Knee Right Patient Position Supine Flexion Active (degrees) 75 Left Patient Position Supine Flexion Active (degrees) 117 Knee ROM Limitations Comments Extension is: Right - Lacking 11 deg's Left - Lacking 5 deg's Ankle and Foot Goniometric Range of Motion Ankle and Foot Right Active Testing Position Supine Dorsiflexion with Knee Extended 3 Plantarflexion 40 Left Active Testing Position Supine Dorsiflexion with Knee Extended 3 Plantarflexion 40 PT-OP-M Strength Start: 04/16/19 17:22 Freq: Status: Active Protocol: Document 04/17/19 09:55 LRN (Rec: 04/17/19 17:23 LRN [id number]) Hip Strength Hip Manual Muscle Testing Right Flexion (L2) 3- Fair- Left Flexion (L2) 5 Normal Knee Strength Knee Manual Muscle Testing Right Flexion (S2) 2 Poor Extension (L3) 2 Poor Reason Not Measured Pain Left Flexion (S2) 5 Normal Extension (L3) 5 Normal Ankle/Foot Strength Ankle and Foot Manual Muscle Testing Left Reason Not Measured WFL Right Reason Not Measured WFL PT-OP-Q Treatments Start: 04/16/19 17:22 Freq: Status: Active Protocol: Document 05/04/19 11:36 SA (Rec: 05/04/19 11:43 SA [email or web address]) Cardio Equipment Recumbent Stepper (Sci-Fit) Duration (Minutes) 7 Resistance 1.8 Gym Equipment Shuttle Recovery Unilateral Squats Resistance 37 Bilateral Squats Resistance 50 Shuttle Recovery Platform Stable Reps/Time 10 Therapeutic Exercises Supine Exercises gravity assisted knee flex Equipment Used slider sheet Reps/Minutes 6x Comments laying on shuttle leg press HS/gastroc stretch Side right Reps/Minutes 30 x 2 Comments standing SAQ Supine Exercise Name SAQ Side right Reps/Minutes 10x Comments V.cues to relax at ankle Quad Sets Supine Exercise Name QS with leg elevated Side right Reps/Minutes 10x Comments RLE raised on bolster, V.cues to relax at ankle Standing Exercises stair lunge Reps/Minutes 10x knee extension Standing Exercise Name TKE Resistance TB lv 2 Reps/Minutes 15 x 5 hamstring curl Reps/Minutes 10x Other Exercises Backwards walking Side bilateral Reps/Minutes 8 lengths of bar Comments focus on knee EXT Manual Therapy Treatment Manual Techniques Modified lymphatic massage Type R LE modified lymphatic massage Body Location R LE Body Position Supine Reps/Duration 10 PT-OP-R Modalities Start: 04/16/19 17:22 Freq: Status: Active Protocol: Document 05/04/19 11:36 SA (Rec: 05/04/19 11:43 SA [email or web address]) Hot Pack/Cold Pack Treatment Cold Pack Location R knee surrounding joint Patient Position Supine Treatment Duration (minutes) 10 Patient Tolerance Good Comments Cryo-cuff PT-OP-T Assessment and Plan Start: 04/16/19 17:22 Freq: Status: Active Protocol: Document 05/04/19 11:36 SA (Rec: 05/04/19 11:43 SA [email or web address]) Physical Therapy Assessment Assessment Summary Assessment AROM 8-108 degrees after exercise and manual therapy, pt progressing well and tolerating ther ex progressions. Physical Therapy Plan Next Visit Focus/Plan Next Note Type Treatment Note Next Visit Plan Continue TKA rehab. Further gait training, add backward walking to facilitate knee extension and consider prone knee extension stretch.
--- NOTE | 2019-05-09 15:48 | PT.OTN ---
Current Diagnoses Unilateral primary osteoarthritis, right knee (05/09/19) Pain in right knee (05/09/19) Muscle weakness (generalized) (05/09/19) Other abnormalities of gait and mobility (05/09/19) Physical Therapy Treatment Note PT-OP-A Visit Information Start: 04/16/19 17:22 Freq: Status: Active Protocol: Document 05/09/19 13:45 GGD (Rec: 05/09/19 15:47 GGD [email or web address]) Out-Patient Physical Therapy Visit Information Visit Information Visit Type Treatment Note Visit Start Time 13:45 Visit Stop Time 14:40 Total Visit Minutes 50 Visit Number 6 Number of CRISIS MENTAL HEALTH THERAPIST Visits 2 Evaluation Information Evaluation Date 04/17/19 PT-OP-B Current Condition Start: 04/16/19 17:22 Freq: Status: Active Protocol: Document 04/17/19 09:55 LRN (Rec: 04/17/19 10:36 LRN [id number]) Current Condition History of Current Condition Onset Date 04/11/19 Current Complaints Pain in R knee all around History of Current Condition Pt is s/p R Unilateral knee arthroplasty 04/11/19. The pt was scheduled to stay in the hospital one day, but ended up staying 2 days due to pain in his L knee that was limiting his ability to ambulate stairs . Pt has a set of stairs to get in/out of his home and he states he is able to ambulate stairs one at a time independently with crutches. The pt ambulates into therapy to day with use of crutches and a normal although shortened step lengths. He is having constant throbbing pain around the R knee joint and limited in ability to bend at the knee due to what he states is incision pain from the bandage. The pt reports he is being consistent with his HEP and use of ice and elevation to help with his pain and swelling. Future Testing and Treatments Planned Recheck tomorrow. 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 Treatment Goals Patient/Caregiver Goals Pt goal is to be able to get in/out of boat to go fishing. Pt goal is to garden. Pt goal is to camp. Pt agreeable to work towards: 1) normal ambulation without use of cane, 2) normal stair ambulation without an assistive device but rail if needed, 3) to be able to squat as needed to return to work. 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 Current Functional Impairments (Reported) Functional Limitations- ADL's ADL's are slower and more painful. Functional Limitations- Mobility/Gait Gait with crutches. Stair ambulation one at a time . Functional Limitations- Work/School Estimated soonest return to work date, 05/23/19. 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 Personal Factors Other Personal Factors That May Effect Stairs to get to office. Therapy/Recovery Must be able to: Bend down, pick something off floor. Lift things, 60#. Stand tip toes. PT-OP-C Subjective Start: 04/16/19 17:22 Freq: Status: Active Protocol: Document 05/09/19 13:45 GGD (Rec: 05/09/19 15:47 GGD [email or web address]) OP-PT Subjective Patient Comments Patient Comments Pt states he knee aches and is stiff at night. PT-OP-G Mobility & Gait Start: 04/16/19 17:22 Freq: Status: Active Protocol: Document 04/17/19 09:55 LRN (Rec: 04/17/19 17:23 LRN [id number]) OP Gait Assessment Gait Gait Assistance Required: Independent Distance (Feet) 75 Able to Maintain Weight Bearing Status Yes During Gait Assistive Devices Assistive Device Forearm Crutches Orthotic/Prosthetic Devices or Brace: No Gait Deviations General Gait Pattern Antalgic Decreased Stride Length Flexed Trunk Factors Limiting Gait Function Factors Limiting Gait Function Decreased Activity Tolerance Decreased Strength Limited Range of Motion Pain Poor Balance Stair Climbing Evaluation Comments Stair Climbing Comments Pt notes he ambulates stair one step at a time with railing or crutches independently. PT-OP-J Posture/Palpation/Skin Start: 04/16/19 17:22 Freq: Status: Active Protocol: Document 04/17/19 09:55 LRN (Rec: 04/17/19 17:23 LRN [id number]) Posture Evaluation Comments Posture Comments Standing the pt stands with greater weight bearing on the LLE. Palpation Assessment Location R knee Palpation Location R knee anterior, posterior, lateral sides Palpation Findings Edema Soft Tissue Tightness Tenderness Palpation Details Increased temperature around the entire knee joint, from 2 above the bandage and at the level of the bandage below. Skin Assessment Other Assessments Skin Assessment Comments R Knee incision covered with full sealing bandage. PT-OP-K Range of Motion Start: 04/16/19 17:22 Freq: Status: Active Protocol: Document 04/17/19 09:55 LRN (Rec: 04/17/19 17:23 LRN [id number]) Knee Goniometric Range of Motion Knee Right Patient Position Supine Flexion Active (degrees) 75 Left Patient Position Supine Flexion Active (degrees) 117 Knee ROM Limitations Comments Extension is: Right - Lacking 11 deg's Left - Lacking 5 deg's Ankle and Foot Goniometric Range of Motion Ankle and Foot Right Active Testing Position Supine Dorsiflexion with Knee Extended 3 Plantarflexion 40 Left Active Testing Position Supine Dorsiflexion with Knee Extended 3 Plantarflexion 40 PT-OP-M Strength Start: 04/16/19 17:22 Freq: Status: Active Protocol: Document 04/17/19 09:55 LRN (Rec: 04/17/19 17:23 LRN [id number]) Hip Strength Hip Manual Muscle Testing Right Flexion (L2) 3- Fair- Left Flexion (L2) 5 Normal Knee Strength Knee Manual Muscle Testing Right Flexion (S2) 2 Poor Extension (L3) 2 Poor Reason Not Measured Pain Left Flexion (S2) 5 Normal Extension (L3) 5 Normal Ankle/Foot Strength Ankle and Foot Manual Muscle Testing Left Reason Not Measured WFL Right Reason Not Measured WFL PT-OP-Q Treatments Start: 04/16/19 17:22 Freq: Status: Active Protocol: Document 05/09/19 13:45 GGD (Rec: 05/09/19 15:47 GGD [email or web address]) Cardio Equipment Recumbent Stepper (Sci-Fit) Duration (Minutes) 7 Resistance 1.8 Gym Equipment Shuttle Recovery Unilateral Squats Resistance 75 Shuttle Recovery Platform Stable Reps/Time 15 Bilateral Squats Resistance 87 Shuttle Recovery Platform Stable Reps/Time 20 Therapeutic Exercises Supine Exercises HS/gastroc stretch Side right Reps/Minutes 30 x 2 Comments standing SAQ Supine Exercise Name SAQ Side right Reps/Minutes 10x Quad Sets Supine Exercise Name QS with leg elevated Side right Reps/Minutes 10x Comments RLE raised on bolster, V.cues to relax at ankle Standing Exercises knee extension Standing Exercise Name TKE Resistance TB lv 2 Reps/Minutes 15 x 5 Other Exercises Backwards walking Side bilateral Reps/Minutes 8 lengths of bar Comments focus on knee EXT Manual Therapy Treatment Manual Techniques LE Retrograde massage Type R LE Retrograde massage Body Location R LE Body Position Supine Reps/Duration 10 PT-OP-R Modalities Start: 04/16/19 17:22 Freq: Status: Active Protocol: Document 05/09/19 13:45 GGD (Rec: 05/09/19 15:47 GGD [email or web address]) Hot Pack/Cold Pack Treatment Cold Pack Location R knee surrounding joint Patient Position Supine Treatment Duration (minutes) 10 Patient Tolerance Good Comments Cryo-cuff PT-OP-T Assessment and Plan Start: 04/16/19 17:22 Freq: Status: Active Protocol: Document 05/09/19 13:45 GGD (Rec: 05/09/19 15:47 GGD [email or web address]) Physical Therapy Assessment Assessment Summary Assessment Pt progressing with ROM 2-110 degrees. He is progressing with strengthening. Physical Therapy Plan Frequency and Duration Frequency of Treatment 2x/Week Duration of Treatment 2 months Plan of Care Start Date 04/17/19 Plan of Care End Date 06/19/19 Next Visit Focus/Plan Next Note Type Treatment Note Next Visit Plan Continue TKA rehab. Further gait training, add backward walking to facilitate knee extension and consider prone knee extension stretch.
--- NOTE | 2019-05-14 17:08 | PT.OTN ---
Current Diagnoses Unilateral primary osteoarthritis, right knee (05/14/19) Pain in right knee (05/14/19) Muscle weakness (generalized) (05/14/19) Other abnormalities of gait and mobility (05/14/19) Physical Therapy Treatment Note PT-OP-A Visit Information Start: 04/16/19 17:22 Freq: Status: Active Protocol: Document 05/14/19 17:02 EA (Rec: 05/14/19 17:08 EA [id number]) Out-Patient Physical Therapy Visit Information Visit Information Visit Type Treatment Note Visit Start Time 13:45 Visit Stop Time 14:40 Total Visit Minutes 47 Visit Number 7 Number of CUSTOMER SERVICER Visits 2 PT-OP-B Current Condition Start: 04/16/19 17:22 Freq: Status: Active Protocol: Document 04/17/19 09:55 LRN (Rec: 04/17/19 10:36 LRN [id number]) Current Condition History of Current Condition Onset Date 04/11/19 Current Complaints Pain in R knee all around History of Current Condition Pt is s/p R Unilateral knee arthroplasty 04/11/19. The pt was scheduled to stay in the hospital one day, but ended up staying 2 days due to pain in his L knee that was limiting his ability to ambulate stairs . Pt has a set of stairs to get in/out of his home and he states he is able to ambulate stairs one at a time independently with crutches. The pt ambulates into therapy to day with use of crutches and a normal although shortened step lengths. He is having constant throbbing pain around the R knee joint and limited in ability to bend at the knee due to what he states is incision pain from the bandage. The pt reports he is being consistent with his HEP and use of ice and elevation to help with his pain and swelling. Future Testing and Treatments Planned Recheck tomorrow. 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 Treatment Goals Patient/Caregiver Goals Pt goal is to be able to get in/out of boat to go fishing. Pt goal is to garden. Pt goal is to camp. Pt agreeable to work towards: 1) normal ambulation without use of cane, 2) normal stair ambulation without an assistive device but rail if needed, 3) to be able to squat as needed to return to work. 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 Current Functional Impairments (Reported) Functional Limitations- ADL's ADL's are slower and more painful. Functional Limitations- Mobility/Gait Gait with crutches. Stair ambulation one at a time . Functional Limitations- Work/School Estimated soonest return to work date, 05/23/19. 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 Personal Factors Other Personal Factors That May Effect Stairs to get to office. Therapy/Recovery Must be able to: Bend down, pick something off floor. Lift things, 60#. Stand tip toes. PT-OP-C Subjective Start: 04/16/19 17:22 Freq: Status: Active Protocol: Document 05/14/19 17:02 EA (Rec: 05/14/19 17:08 EA [id number]) OP-PT Subjective Patient Comments Patient Comments Pt reports complaint qith HEP; states feeling much better at this time. PT-OP-G Mobility & Gait Start: 04/16/19 17:22 Freq: Status: Active Protocol: Document 04/17/19 09:55 LRN (Rec: 04/17/19 17:23 LRN [id number]) OP Gait Assessment Gait Gait Assistance Required: Independent Distance (Feet) 75 Able to Maintain Weight Bearing Status Yes During Gait Assistive Devices Assistive Device Forearm Crutches Orthotic/Prosthetic Devices or Brace: No Gait Deviations General Gait Pattern Antalgic Decreased Stride Length Flexed Trunk Factors Limiting Gait Function Factors Limiting Gait Function Decreased Activity Tolerance Decreased Strength Limited Range of Motion Pain Poor Balance Stair Climbing Evaluation Comments Stair Climbing Comments Pt notes he ambulates stair one step at a time with railing or crutches independently. PT-OP-J Posture/Palpation/Skin Start: 04/16/19 17:22 Freq: Status: Active Protocol: Document 04/17/19 09:55 LRN (Rec: 04/17/19 17:23 LRN [id number]) Posture Evaluation Comments Posture Comments Standing the pt stands with greater weight bearing on the LLE. Palpation Assessment Location R knee Palpation Location R knee anterior, posterior, lateral sides Palpation Findings Edema Soft Tissue Tightness Tenderness Palpation Details Increased temperature around the entire knee joint, from 2 above the bandage and at the level of the bandage below. Skin Assessment Other Assessments Skin Assessment Comments R Knee incision covered with full sealing bandage. PT-OP-K Range of Motion Start: 04/16/19 17:22 Freq: Status: Active Protocol: Document 04/17/19 09:55 LRN (Rec: 04/17/19 17:23 LRN [id number]) Knee Goniometric Range of Motion Knee Right Patient Position Supine Flexion Active (degrees) 75 Left Patient Position Supine Flexion Active (degrees) 117 Knee ROM Limitations Comments Extension is: Right - Lacking 11 deg's Left - Lacking 5 deg's Ankle and Foot Goniometric Range of Motion Ankle and Foot Right Active Testing Position Supine Dorsiflexion with Knee Extended 3 Plantarflexion 40 Left Active Testing Position Supine Dorsiflexion with Knee Extended 3 Plantarflexion 40 PT-OP-M Strength Start: 04/16/19 17:22 Freq: Status: Active Protocol: Document 04/17/19 09:55 LRN (Rec: 04/17/19 17:23 LRN [id number]) Hip Strength Hip Manual Muscle Testing Right Flexion (L2) 3- Fair- Left Flexion (L2) 5 Normal Knee Strength Knee Manual Muscle Testing Right Flexion (S2) 2 Poor Extension (L3) 2 Poor Reason Not Measured Pain Left Flexion (S2) 5 Normal Extension (L3) 5 Normal Ankle/Foot Strength Ankle and Foot Manual Muscle Testing Left Reason Not Measured WFL Right Reason Not Measured WFL PT-OP-Q Treatments Start: 04/16/19 17:22 Freq: Status: Active Protocol: Document 05/14/19 17:02 EA (Rec: 05/14/19 17:08 EA [id number]) Cardio Equipment Recumbent Stepper (Sci-Fit) Duration (Minutes) 7 Resistance 1.8 Seat Position 12 Gym Equipment Shuttle Recovery Unilateral Squats Resistance 75 Shuttle Recovery Platform Stable Reps/Time 15 Bilateral Squats Resistance 100 Shuttle Recovery Platform Stable Reps/Time 20 Therapeutic Exercises Standing Exercises 1 Standing Exercise Name side step squat-heel raises Reps/Minutes x 10ft x 3 lines Hs stretch Reps/Minutes 4x Comments stair stair lunge Reps/Minutes 10x knee extension Standing Exercise Name TKE Resistance TB lv 2 Reps/Minutes 15 x 5 hamstring curl Resistance GTB Reps/Minutes 10x HC stretch Equipment Used PATY Reps/Minutes 2x Manual Therapy Treatment Soft Tissue Mobilization 1 Body Location right kne scar Mobilization Type Cross-Friction Intensity/Depth Superficial Comments Gentle Joint Mobilizations 1 Joint sup/inf glide Grade III Reps/Duration 5 mins PT-OP-R Modalities Start: 04/16/19 17:22 Freq: Status: Active Protocol: Document 05/14/19 17:02 EA (Rec: 05/14/19 17:08 EA [id number]) Hot Pack/Cold Pack Treatment Cold Pack Location R knee surrounding joint Patient Position Supine Treatment Duration (minutes) 10 Patient Tolerance Good Comments Cryo-cuff PT-OP-T Assessment and Plan Start: 04/16/19 17:22 Freq: Status: Active Protocol: Document 05/14/19 17:02 EA (Rec: 05/14/19 17:08 EA [id number]) Physical Therapy Assessment Assessment Summary Assessment Improved strength and ROM at this time. Patient is progressing very well Physical Therapy Plan Next Visit Focus/Plan Next Note Type Treatment Note Next Visit Plan Continue TKA rehab. Further gait training, add backward walking to facilitate knee extension and consider prone knee extension stretch.
--- NOTE | 2019-08-06 10:28 | PT.OPDS ---
Current Diagnoses Unilateral primary osteoarthritis, right knee (05/14/19) Pain in right knee (05/14/19) Muscle weakness (generalized) (05/14/19) Other abnormalities of gait and mobility (05/14/19) Visit Care Team Role Provider Type Mick Bunch MD Primary Care Provider Physician Specialty: Internal Medicine Address: [address] [place] [address], [id number] Email: [email or web address] Rolando Briggs MD Attending Provider Physician Specialty: Orthopedic Surgery Address: [address] [place] [address], [id number] Email: [email or web address] Visit Number Visit Number 7 Discharge Summary PT-OP-B Current Condition Start: 04/16/19 17:22 Freq: Status: Active Protocol: Document 04/17/19 09:55 LRN (Rec: 04/17/19 10:36 LRN [id number]) Current Condition History of Current Condition Onset Date 04/11/19 Current Complaints Pain in R knee all around History of Current Condition Pt is s/p R Unilateral knee arthroplasty 04/11/19. The pt was scheduled to stay in the hospital one day, but ended up staying 2 days due to pain in his L knee that was limiting his ability to ambulate stairs . Pt has a set of stairs to get in/out of his home and he states he is able to ambulate stairs one at a time independently with crutches. The pt ambulates into therapy to day with use of crutches and a normal although shortened step lengths. He is having constant throbbing pain around the R knee joint and limited in ability to bend at the knee due to what he states is incision pain from the bandage. The pt reports he is being consistent with his HEP and use of ice and elevation to help with his pain and swelling. Future Testing and Treatments Planned Recheck tomorrow. 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 Treatment Goals Patient/Caregiver Goals Pt goal is to be able to get in/out of boat to go fishing. Pt goal is to garden. Pt goal is to camp. Pt agreeable to work towards: 1) normal ambulation without use of cane, 2) normal stair ambulation without an assistive device but rail if needed, 3) to be able to squat as needed to return to work. 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 Current Functional Impairments (Reported) Functional Limitations- ADL's ADL's are slower and more painful. Functional Limitations- Mobility/Gait Gait with crutches. Stair ambulation one at a time . Functional Limitations- Work/School Estimated soonest return to work date, 05/23/19. 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 Personal Factors Other Personal Factors That May Effect Stairs to get to office. Therapy/Recovery Must be able to: Bend down, pick something off floor. Lift things, 60#. Stand tip toes. PT-OP-T Assessment and Plan Start: 04/16/19 17:22 Freq: Status: Active Protocol: Document 08/06/19 10:25 LRN (Rec: 08/06/19 10:28 LRN [id number]) Physical Therapy Assessment Goals Three Impairment Antalgic gait requiring use of an assisted device for gait Short Term Goal (STG) Pt will be able to ambulate without the use of an assistive device safely. STG Duration 05/17/19 [employer] Goal (LTG) Pt will be able to ambulate with a normal gait pattern. LTG Duration 06/19/19 Two Impairment Lacks functional R knee AROM Short Term Goal (STG) Pt will be able to bend to squat for return to work. STG Duration 05/17/19 [employer] Goal (LTG) Pt will be able to ambulate up /down stairs with a reciprical gait pattern with use of railing for balance. LTG Duration 06/19/19 One Impairment Lacks appropriate self care HEP Nursing Home Goal (LTG) PT will be independent in a self care HEP appropriate for his level of function. LTG Duration 06/19/19 Assessment Summary Assessment Pt is unavailable for final assessment. Per phone conversation, pt states his knee is fine and is okay to DC from therapy. Physical Therapy Plan Discharge Physical Therapy Discharge Reasons Patient Request Discharge Comments Pt was last seen 05/14/19. Per telephone conversation the pt reports his knee is fine and is agreeable to DC from physical therapy. Thank you for your referral.
== END 2019-09-21 13:45 ==
LOC: PHYS 13:45
PROVIDERS: PCP Internal Medicine; Visit Provider Orthopaedic Surgery
DX: M17.11 Unilateral primary osteoarthritis, right knee (principal); R26.89 Other abnormalities of gait and mobility; M25.561 Pain in right knee; M62.81 Muscle weakness (generalized)
CPT/HCPCS: 97010; 97110; 97116; 97140; 97162

== ENCOUNTER → 2019-08-27 16:45 | Outpatient (CLI) | payer OTHER, SELFPAY ==
[2019-04-11 11:30] VITALS: BMI 34.4
[2019-08-27 18:05] LABS: Add Manual Diff / Slide Review NO; Basophils Absolute Auto 100 /uL (0-100); Basophils Percent Auto 0.7 % (0-2); Eosinophils Absolute Auto 300 /uL (0-450); Eosinophils Percent Auto 4.3 % (2-4); Hematocrit 41.6 % (41-53); Hemoglobin 13.9 g/dL (13.5-17.5); Lymphocytes Absolute Auto 2000 /uL (1100-4500); Lymphocytes Percent Auto 29.3 % (25-40); Mean Corpuscular HGB Conc 33.4 % (30-36); Mean Corpuscular Hemoglobin 29.2 PG (26-34); Mean Corpuscular Volume 87.6 fL (80-100); Monocytes Absolute Auto 800 /uL (0-900); Monocytes Percent Auto 11.3 % (3-14); Neutrophils Absolute Auto 3800 /uL (1500-7000); Neutrophils Percent Auto 54.4 % (50-75); Platelet Count 253 X10^3/uL (150-400); Red Blood Cell Count 4.75 X10^6/uL (4.5-5.9); Red Cell Distribution Width 14.1 % (11.6-14.8)
[2019-08-27 18:29] LABS: Carbon Dioxide 30 mmol/L (22-32); Chloride 103 mmol/L (98-107); HEMOLYSIS < 15 (0-50); Potassium 5.3 mmol/L (3.4-5.1); Sodium 139 mmol/L (137-145)
== END ==
PROVIDERS: PCP Internal Medicine; Visit Provider Orthopaedic Surgery
DX: Z01.812 Encounter for preprocedural laboratory examination (principal); M17.0 Bilateral primary osteoarthritis of knee
CPT/HCPCS: 36415; 80051; 85025

== ENCOUNTER 2019-09-14 07:46 | Day surgery (SDC) | payer OTHER, SELFPAY ==
[2019-04-11 11:30] VITALS: BMI 34.4
[2019-09-10 12:18] VITALS: BMI 35.6
[2019-09-14] VITALS (14 sets, daily range): BP systolic 116–148; BP diastolic 55–92; PULSE 64–83; RESP 12–18; TEMP 36.3–36.9; O2SAT 91–98; BMI 35.6
--- NOTE | 2019-09-14 06:00 | DI.RAD.S_ITS ---
PROCEDURE: XR KNEE LT 1TO2V INDICATIONS: post op films TECHNIQUE: 2 view(s) of the knee acquired. COMPARISON: [facility] [place], CR, XR KNEE ARTHRITIC SERIES BI, 01/15/2019, 7:08. CR, XR KNEE ARTHRITIC SERIES BI, 09/20/2017, 9:03. [facility] [place], CR, XR KNEE ARTHRITIC SERIES RT, 05/21/2019, 10:16. [facility], CR, XR KNEE RT 1TO2V, 04/11/2019, 10:43. FINDINGS: Bones: Patient is status post knee joint arthroplasty. Hardware components are in expected positions. Visualized bony structures are intact. Soft tissues: Overlying postoperative changes are noted. IMPRESSION: Left knee prosthesis in anatomic alignment. Dictated by: Mary Corrigan M.D. on 09/14/2019 at 18:16 Approved by: Mary Corrigan M.D. on 09/14/2019 at 18:17
[2019-09-14] MEDS: ACETAMINOPHEN 325 MG TABLET 975 MG PO ×3 (08:08→19:56)
[2019-09-14] MEDS: PREGABALIN 75 MG CAPSULE PO (08:09)
[2019-09-14] MEDS: CELECOXIB 200 MG CAPSULE PO (08:09)
[2019-09-14] MEDS: LACTATED RINGERS 1,000 ML 42 ML IV ×2 (08:29→11:45)
--- NOTE | 2019-09-14 09:17 | PM.PREOP ---
Pre-operative Note Interval Note History & Physical reviewed/Exam performed by Physician: Yes Changes to H&P: No
--- NOTE | 2019-09-14 09:18 | P.OP_ITS ---
Operative Date/Time/Diagnoses Date of procedure: 09/14/19 Time of procedure: 11:34 Pre-op diagnosis: Left knee osteoarthritis Post-op diagnosis: same Procedure & Clinicians Procedure: Left total knee arthroplasty Same procedure as scheduled: Yes Indications: The patient presents today for total knee arthroplasty after failure of conservative treatment. The nature of the procedure including the risks and benefits, alternatives, postoperative course and expected outcome were discussed and all questions answered. Consent was obtained. Operative site confirmed and marked. Surgeon: Rolando Briggs Engineer: Surinder Linton Anesthesia Type: General, Spinal and Local Operative Notes Findings: Severe knee osteoarthritis with varus alignment. Closure Type: primary Specimen(s): none sent Prosthetic devices, grafts, tissues, transplants, or devices: [employer] BCS: 5 femoral component, 5 tibial component, 9 mm BCS polyethylene tray and 35 x 9 mm round patella Applied: implant(s) Estimated Blood Loss (mL): 10 Blood products transfused: none Tourniquet time (min): 60 Procedure in detail: The patient was taken to the operative suite and placed under general and spinal anesthesia. The patient was given prophylactic antibiotics prior to surgery. The patient was also given tranexamic acid, 1 g, just prior to surgery for postoperative hemostasis. The lateral knee was prepped and the joint injected with 20 mL of 1% Lidocaine with epinephrine. The knee was then prepped and draped in usual sterile fashion. The leg was exsanguinated with an Esmarch dressing and the tourniquet raised to 250 torr. A 15 cm anterior incision was made. Next a medial trivector arthrotomy was made. The extensor mechanism was marked to ensure accurate repair. Initial exposing dissection was carried out medially and laterally. The knee was then extended and the patellar thickness was measured and a cut made removing approximately 9 mm of bone. The patella was then sized and drilled. Some excess lateral bone was excised and the patellofemoral ligament released. The knee was then flexed and the intramedullary femoral guide logan placed. The distal femoral cut was made in 6 ? of valgus at the + 0 position. The femoral size was measured and the appropriate cutting block was then placed and the anterior, posterior and chamfer cuts made. The intramedullary tibial alignment logan was then placed. The guide was set to remove approximately 10 mm from the less affected lateral side. The proximal tibial cut was then made with an oscillating saw. All meniscus and bony debris was then removed. Posterior femoral osteophytes removed with a curved osteotome. Flexion extension gaps were checked. No specific balancing was required other than routine exposure and removal of osteophytes. The soft tissues were then injected with a combination of 20 mL of half percent Marcaine with epinephrine and 20 mL of Exparel. The trial components were then placed. The knee went into full extension and flexion beyond 120?. There was excellent medial-lateral balance throughout motion. Patellar tracking was excellent. The trial components were removed and the knee was cleansed with Pulsavac irrigation and dried. The final components were cemented with high viscosity vacuum mixed bone cement with antibiotics. The joint was filled with a dilute Betadine solution. The knee was held in extension and the patellar clamped until the cement was fully cured. The knee was then irrigated. The extensor mechanism was closed with 5 interrupted #1 Vicryl sutures and a running Quill suture at 90 degrees of flexion. The joint was then injected with a combination of 1 g of tranexamic acid and 20 mL of quarter percent Marcaine with epinephrine. The subcutaneous tissue was closed with 2 0 Vicryl. The skin was closed with larissa and surgical adhesive. An Aquacel dressing and Herb wrap were then applied. The patient tolerated the procedure well and was returned to recovery room in good condition. Complications: none Post-operative Condition: stable Disposition: PACU Plan for aftercare: [facility] protocol for total knee arthroplasty.
[2019-09-14] MEDS: CEFAZOLIN 2 GM/100 ML FROZ.PIGGY IV ×2 (09:55→18:19)
[2019-09-14] MEDS: LIDOCAINE 1% W/EPI 20 ML INJ (10:35)
[2019-09-14] MEDS: BUPIVACAINE 0.25% W/ EPI (PF) 20 ML, TRANEXAMIC ACID 1,000 MG, SODIUM CHLORIDE 0.9% 10 ML INJ (10:36)
[2019-09-14] MEDS: BUPIVACAINE 0.25% W/ EPI (PF) 40 ML, BUPIVACAINE LIPOSOME 266 MG, SODIUM CHLORIDE 0.9% ... INJ (10:36)
[2019-09-14] MEDS: SODIUM CHLORIDE IRRIG SOLUTION 250 ML, POVIDONE-IODINE SPONGE STICKS 1 APPLIC IRR (10:58)
--- NOTE | 2019-09-14 13:04 | PC.ADMIT ---
[id number] Admission Note: The patient,Jihan Guardado,63 y/o, was given written information regarding hospital policies, unit procedures and contact persons. Patient's smoking status: Former smoker. Pt arrived from PACU via bed. Denies pain. Able to wiggle toes and move legs slightly. Drsg with maame wrap C/DI. CPOX on. SCD's on and running. IVF to be connected.Denies nausea, Gen diet order placed. Denies dietary restrictions. Urinal placed at bedside. Oriented to room and call system. Bed alarm placed on. Supportive at bedside. Vital Signs - 8 hr 09/14/19 08:21 09/14/19 11:45 09/14/19 11:50 Temperature 98.4 F 98.2 F Pulse Rate 78 79 79 Respiratory Rate 15 15 13 Blood Pressure 146/68 H 120/57 L 116/55 L Pulse Oximetry 95 92 92 09/14/19 11:55 09/14/19 12:04 09/14/19 12:09 Temperature Pulse Rate 77 68 72 Respiratory Rate 13 12 14 Blood Pressure 131/62 133/65 139/77 Pulse Oximetry 95 98 96 09/14/19 12:19 Temperature Pulse Rate 71 Respiratory Rate 12 Blood Pressure 120/87 Pulse Oximetry 98
[2019-09-14] MEDS: LACTATED RINGERS 1,000 ML 125 ML IV ×2 (13:32→22:58)
[2019-09-14] MEDS: OXYCODONE/ACETAMINOPHEN 5/325 TABLET 1 TAB PO ×2 (14:08→16:05)
--- NOTE | 2019-09-14 15:41 | PT.IIE ---
This is to certify that I have reviewed this documentation and is involved with this pt's care. Current Diagnoses Bilateral primary osteoarthritis of knee (09/14/19) Presence of right artificial knee joint (09/14/19) Surgery Performed Operation Date: 09/14/19 09:45 <No data on this case meets the specified criteria> Operation Date: 09/14/19 09:45 Actual Procedures p Total Knee Arthroplasty(Left) - Rolando Briggs MD Surgical History (Last Reviewed 09/14/19 @ 13:41 by Anuja Mustafa RN) No history of previous surgery (Acute) Medical History (Last Reviewed 09/14/19 @ 13:41 by Anuja Mustafa RN) Bilateral bunions (Acute) Bilateral carpal tunnel syndrome (Acute) Bilateral knee pain (Acute) Colon polyps (Acute) Edema (Acute) Enlarged prostate (Acute) Hearing impaired (Acute) HLD (hyperlipidemia) (Acute) HTN (hypertension) (Acute) Nerve damage (Acute) RANJIT (obstructive sleep apnea) (Acute) Physical Therapy Inpatient Evaluation/Re-Eval M1 PT/OT-IP Prior Functional Status Start: 09/14/19 16:17 Freq: NEEDED Status: Active Protocol: Document 09/14/19 15:41 JG (Rec: 09/14/19 16:48 JPeña [id number]) Medical Review Prior Functional Status Medical History Reviewed Yes Diet/Fluid Consistency Regular Communication No noted cognitive or communication deficits. Mobility and Gait Pt reports I with mobility and gait but high levels of pain in L knee prior to surgery. Activities of Daily Living and IADL's I prior to surgery. Prior Functional Level (Other details) Pt was able to drive prior to surgery. Pt had R TKA 5 months ago and reports transitioning from FWW to crutches to no AD after previous surgery. Pt notes that he preferred using crutches after previous surgery. Pt notes that he did climb stairs with step to pattern. Social History Household Members spouse Living Arrangements House Number of Floors (Floors) Two Floors Number of Stairs To Enter/Railing? 2 TANIKA, no railing Home Environment Standard Height Toilet,Walk in Shower,Tub/Shower Home Equipment Front Wheel Walker,Crutches, Manual Wheelchair,Raised Toilet Seat Without Armrests, Shower Seat with Backrest,Hand Held Shower Employment Status [employer] Employed Additional Social History Comment Pt lives in two level home in [place] with his and dog. Pt's is retired and will be able to help pt after d/c. Pt's son also lives nearby in [place]. Pt has 2 TANIKA home without a railing. Pt 's bedroom is on second level of house (with full flight of stairs and railing on R) but he plans to stay in spare bedroom on first level of home after d/c. 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 M2 PT-IP Current Condition Start: 09/14/19 16:17 Freq: NEEDED Status: Active Protocol: Document 09/14/19 15:41 JG (Rec: 09/14/19 16:48 JG [email or web address]) Physical Therapy Current Condition Current Condition Evaluation Date 09/14/19 Treatment Diagnosis L TKA, difficulty walking, limited activity tolerance Onset Date 09/14/19 Weight Bearing Status Weight Bearing Status Weight Bear as Tolerated M3 PT-IP Subjective Start: 09/14/19 16:17 Freq: NEEDED Status: Active Protocol: Document 09/14/19 15:41 JG (Rec: 09/14/19 16:48 JG [email or web address]) Subjective Physical Therapy Visit Type Type Initial Evaluation Visit Start Time 15:41 Visit Stop Time 16:08 Total Visit Minutes 27 Notes IE led by CECY Morgan, supervised by PT Taylor Number of FABRICATION MIG WELDER Visits 0 Physical Therapy Visit Comments Patient Comments I am in a little pain but not too bad so far. I think I can get up and move a little bit. Patient Goals Get up and move, return home Therapy Pain Assessment Pain When Pain Assessed At Rest Location right knee Intensity 3 Scale Used Numeric (1 - 10) Description Aching,Acute,Sharp,With Movement Pain Behaviors Facial Grimacing,Guarding, Wincing Pain Management Techniques Apply Cold,Distraction M4 PT-IP Mobility and Gait Start: 09/14/19 16:17 Freq: NEEDED Status: Active Protocol: Document 09/14/19 15:41 JG (Rec: 09/14/19 16:48 JG [email or web address]) PT-Bed Mobility Assessment Rolling Type of Rolling Roll to Right Level of Assist Standby Assistance Supine to Sit Supine to Sit Standby Assistance,Head of Bed Elevated Scooting Scooting to Edge of Bed Contact Guard Assistance PT-Transfer Assessment Sit to and From Stand Sit to and from Stand Contact Guard Assistance,Use of Upper Extremities Equipment Transfer Assistive Device Gait Belt,Front Wheeled Walker Orthotic/Prosthetic Devices or Brace: No Transfers Transfer Destination Chair Transfer Technique ambulated with FWW Transfer Ability Level of Assist Contact Guard Assistance,Use of Upper Extremities Comments Mobility Comments Pt in bed upon assessment and demonstrated stable vitals throughout session (baseline 140/80). Pt required no more than SBA to sit up but required CGA to scoot to EOB for balance. Pt requested to don underwear prior to further mobilization. Pt required assistance to don underwear on surgical leg. After cuing to use UE to pushoff from bed, pt able to stand with CGA. Pt required min A to maintain balance while standing and pulling up underwear. Pt reported increased pain with standing but was able to weightshift to L side with support from FWW. Pt walked to the bathroom with the FWW to attempt to void then ambulated back to the chair and sat with CGA. Pt was then was able to scoot back in chair with SBA. Pt left in chair with ice pack on L knee and call light and needs within reach. Gait Assessment Gait Gait Assistance Required: Minimum Assistance Distance (Feet) 20 Able to Maintain Weight Bearing Status Yes During Gait Assistive Devices Assistive Device Gait Belt,Front Wheeled Walker Orthotic/Prosthetic Devices or Brace: No Gait Deviations General Gait Pattern Antalgic,Decreased Stride Length,Decreased Feet Clearance,Flexed Trunk,Step-to Gait Factors Limiting Gait Function Factors Limiting Gait Function Decreased Activity Tolerance, Decreased Strength,Limited Range of Motion,Pain,Poor Balance Comments Gait Comments Pt ambulated ~20 ft with FWW and no more than min A for balance. Pt initially demonstrated difficulty maintaining knee extension duing L stance which was improved with cuing to activate leg. Pt ambulated with initial step to gait pattern that improved to partial step through as pt ambulated. Pt noted that pain increased to a 7/10 during ambulation. Stair Climbing Assessment Comments Stair Climbing Comments not assessed PT-Balance Assessment Sitting Balance and Reactions Static Sitting Balance Ability Good Dynamic Sitting Balance Ability Fair Standing Balance and Reactions Static Standing Balance Ability Good Dynamic Standing Balance Ability Fair Device Used FWW M5 PT-IP Objective Assessments Start: 09/14/19 16:17 Freq: NEEDED Status: Active Protocol: Document 09/14/19 15:41 JG (Rec: 09/14/19 16:48 JG [email or web address]) Orientation Orientation/Cognition Level of Alertness Alert Orientation Name,Date,Place,Situation Language Function Ability No Deficits Noted Safety Awareness Understands Safety Issues Memory Description No Deficits Noted Comments No noted communication deficits. Pt noted that he still felt a little fuzzy from anesthesia. He did initially answer some questions wrongly while PT was attaining information about home environment but was able to self correct quickly. Gross Range of Motion Upper Extremity ROM Assessment Within Functional Limits Lower Extremity ROM Assessment Left Impaired Impairments L knee ROM limited d/t pain, improved with heel slides Strength Upper Extremity Strength Assessment Within Functional Limits Lower Extremity Strength Assessment Left Impaired Hip 4-/5 Knee 4-/5 Ankle 4-/5 Sensation Assessment Sensation Gross Sensation WNL Muscle Tone Muscle Tone WNL Yes M6 PT-IP Treatment Start: 09/14/19 16:17 Freq: NEEDED Status: Active Protocol: Document 09/14/19 15:41 JG (Rec: 09/14/19 16:48 JG [email or web address]) Physical Therapy Treatment Exercises Exercises Heel Slides Knee ROM Measurement 10-70 dg knee flexion Education Education Provided Weight Bearing Status,Post-Op Packet,Safety Other Treatments Other Treatment Performed Cued to activate quad during stance phase of gait to support body weight. M7 PT-IP Assessment and Plan Start: 09/14/19 16:17 Freq: NEEDED Status: Active Protocol: Document 09/14/19 15:41 JG (Rec: 09/14/19 16:48 JG [email or web address]) PT Summary Assessment and Plan Potential Rehabilitation Potential Excellent Status of Condition at Evaluation Stable Summary Impairments Pain,ROM,Strength,Balance, Transfers,Gait,Activity Tolerance Assessment Summary Pt is 63yo presenting same day s/p L TKA. Pt reports I PLOF after recovering from R TKA 5 months ago. Pt required no more than CGA during bed mobility and transfers for balance. Pt demonstrated antalgic gait pattern with short L stance phase and required cuing to activate L LE during stance to support himself. Pt ambulated with min A for balance and stability, especially while turning. Pt reports that his will be available 30/05 to assist him at home and his son will be able to help as well as needed . Pt also has OP PT scheduled starting next week. PT recommends d/c to home with assist and OP PT once caregiver training is completed and pt climbs 2 stairs without rails with caregiver assist. Goals Bed Mobility Goal Independent Transfer Goal Independent,Front Wheeled Walker Gait Goal Independent,Front Wheel Walker Gait Distance 250 Other Goals Ascend/descend 2 stairs without railing and SBA Days to Meet Goals 5 Frequency of Treatment Frequency Of Treatment Twice a Day Treatment Plan Physical Therapy Treatment Plan Bed Mobility Training,Transfer Training,Gait Training, Therapeutic Exercise,Balance Retraining,Hot or Cold Pack Other Recommendations and Next Treatment Gait training with FWW or Focus crutches if appropriate (per pt request) Caregiver training Stairs as reva Recommendations To Nursing Amount of Assist Needed 1 Person Assist Discharge Recommendations PT Discharge Recommendations Home with Assistance, Outpatient PT
[2019-09-14] MEDS: LOSARTAN 50 MG TABLET 100 MG PO (18:20)
[2019-09-14] MEDS: OXYCODONE/ACETAMINOPHEN 5/325 TABLET 2 TAB PO (19:47)
[2019-09-14] MEDS: hydrOXYzine pamoate 25 MG CAPSULE PO (19:49)
[2019-09-14] MEDS: ASPIRIN EC 81 MG TABLET PO (19:57)
[2019-09-15 00:35] VITALS: BP 120/73; PULSE 74; RESP 18; TEMP 36.7; O2SAT 93
[2019-09-15] MEDS: OXYCODONE/ACETAMINOPHEN 5/325 TABLET 1 TAB PO (01:20)
[2019-09-15] MEDS: hydrOXYzine pamoate 25 MG CAPSULE PO ×2 (01:22→08:39)
[2019-09-15] MEDS: CEFAZOLIN 2 GM/100 ML FROZ.PIGGY IV (03:18)
[2019-09-15] MEDS: HYDROMORPHONE 2 MG TABLET PO ×3 (03:48→12:53)
[2019-09-15 04:00] VITALS: BP 139/78; PULSE 76; RESP 18; TEMP 37.3; O2SAT 95
[2019-09-15 06:54] LABS: Hematocrit 36.7 % (41-53); Hemoglobin 12.4 g/dL (13.5-17.5)
[2019-09-15 07:58] VITALS: BP 149/82; PULSE 88; RESP 16; TEMP 36.8; O2SAT 95
[2019-09-15 08:00] VITALS: BP 149/82; PULSE 88; RESP 16; TEMP 36.8; O2SAT 95
[2019-09-15] MEDS: LOSARTAN 50 MG TABLET 100 MG PO (08:39)
[2019-09-15] MEDS: ROSUVASTATIN 10 MG TABLET PO (08:39)
[2019-09-15] MEDS: ASPIRIN EC 81 MG TABLET PO (08:39)
[2019-09-15] MEDS: ACETAMINOPHEN 325 MG TABLET 975 MG PO (08:39)
[2019-09-15] MEDS: SODIUM CHLORIDE 0.9% FLUSH 10 ML IV (09:14)
[2019-09-15] MEDS: ONDANSETRON 4 MG/2 ML INJ IV (09:14)
[2019-09-15 10:01] VITALS: O2SAT 95
--- NOTE | 2019-09-15 11:12 | CM.DANOTE ---
DCP/Assessment: Reviewed chart. Patient is a 63yr old male [facility] [place] right TKA peformed on 09-14-[address] Briggs. PCP is Dr. Bunch. Primary payor is 1)Gerardo FREEMAN. Met with patient and spouse/Alicia at bedside explained CM/SW role. Patient reports that he hopes to d/c home today. Spoke with Ortho/Renea and she anticipates that patient will discharge. Patient working on pain control and hopefully will have another session with therapy prior to d/c. Spouse reports that they have all the needed DME. Patient going to outpatient therapy at [facility] in [place]. Patient has ramp to enter residence. P: Anticipate home today if cleared by Ortho team and therapy. MOISÉS White Discharge Planning/Care Management CM Discharge Assessment Start: 09/15/19 11:09 Freq: Status: Active Protocol: Document 09/15/19 11:09 KJS (Rec: 09/15/19 11:12 KJS [id number]) Discharge Planning Assessment Assigned Medical Reimbursement Manager MOISÉS White Contact Information Alicia Guardado (spouse) [phone] Advance Directives? Yes: Living Will, Health Care Directive Advance Directives on File No History Provided By Patient,Significant Other, Medical Record Prior Living Arrangements House Household Members spouse Type of transporation used prior to Drives own vehicle admit Independent with ADL's Yes Is patient alert and oriented? Yes Caregiver for Another No DME Already Rented / Owned FWW / Walker,Other Comment Has ramp to enter residence Patient/Family Preference OP PT Therapy Comment Outpatient therapy arranged at [facility] in [place]. Barriers to Discharge No Discharge Plan Home Transportation Arrangement Family Referrals Initiated None needed Whiteboard Updated in Patient Room with Yes name and ext. # of Medical Reimbursement Manager Review Status In Process Next Review Type Continued Stay Review Pre-Anesthesia Assessment Start: 09/10/19 12:18 Freq: Status: Complete Protocol: Document 09/10/19 12:18 CAB (Rec: 09/10/19 12:25 CAB [id number]) Pre-Anesthesia Assessment PAC Comment Pt s/p RT TKA 04/11/19, declined PAC appointment, states they are no changes to his medical history or medications. She wanted Anesthesia to know he woke up during RT TKA. Patient Information Reviewed Via Chart Review Primary Care Provider Mick Bunch Seen Specialist in Last 12 Months Yes Specialist Seen General surgeon,Orthopedist, Sleep specialist Primary Language Luxembourger Preferred Language Luxembourger Plater Apprentice Required No Height 172.72 cm Weight 106.141 kg Body Mass Index (BMI) 35.6 Hearing Ability Hard of Hearing,Use of Hearing Aid Visual Assist Magnifying Glass Dentition Type Teeth, Natural Present,Teeth, Missing Barriers to Learning None Other Aids Yes: CPAP Hx Anesthesia Reactions Yes: Woke up during RT TKA Hx Family Anesthesia Reaction No Hx Malignant Hyperthermia No Hx Blood Transfusions No Hx Blood Transfusion Reaction n/a Anesthesia Review Requested No alcohol intake current alcohol intake frequency 0-2 drinks per day Smoking Status Former smoker Tobacco type cigarettes,cigars,smokeless tobacco Substance Use Type does not use Pain Present Pain Reported Musculoskeletal Symptoms Abnormal Gait,Back Pain, Difficulty Walking,Joint Pain, Muscle Cramps,Numbness History of Falling (Recent or History of No ) Patient is completely paralyzed or No completely immobile Mental Status Oriented to own ability Is patient on oxygen? No Does patient have BLOOM/SOB No Hx Sleep Apnea Yes CPAP/BIPAP use prescribed used intermittently Currently Taking a Beta Aaron No Can You Climb a Flight of Stairs Without Yes SOB Hx Chest Pain No Hx SOB No Hx Syncope or Dizziness No Anti-Coagulant Therapy No Has a Registration Representative No Cardiac Testing No Hx Pacemaker/ICD No Pacemaker Rep Required? No Cardiac Clearance Received Not Applicable Diet Type At Home Regular dysphagia No Bladder Pattern Nocturia Urinary Catheter Present No Hx Urinary Self Catheterization No Diabetes No Hx Drug Resistant Organism No Presence of External or Internal Medical No Devices Marital Status Lives With spouse Prior Living Arrangements House Number of Floors (Floors) Two Floors Support System Child/Children,Spouse Does the Patient Have Assistance After Yes Surgery Patient Discharge Plan Description Return Home Feels Safe in Current Environment Yes Been Physically Hurt or Threatened By a No Person in Current Environment Do you have thoughts of harming yourself None or others? Are you currently considering suicide? No Do you have a plan to hurt yourself or No Plan others? Do You Have Any Spiritual Beliefs That No May Affect Your HC Choices? Do You Have Any Cultural Practices That No May Affect Your HC Choices? Who Can We Speak to About Patient's Care Family, friends Identifying Code for Release of Patient Declines to issue Information Health Care Proxy/Next of Kin Alicia () Health Care Proxy Emergency Contact Name Alicia () Emergency Contact Advance Directives? Yes: Living Will, Health Care Directive Advance Directives on File No Power of Vendor Quality Supervisor Yes Power of Vendor Quality Supervisor Name Alicia Guardado- Power of Vendor Quality Supervisor
--- NOTE | 2019-09-15 11:37 | PM.DS.1 ---
History of Present Illness History of Present Illness Date Patient Seen: 09/15/19 Time Patient Seen: 11:37 Chief complaint: [id number] *OPB* Narrative: The patient presents today for total knee arthroplasty after failure of conservative treatment. The nature of the procedure including the risks and benefits, alternatives, postoperative course and expected outcome were discussed and all questions answered. Consent was obtained. Operative site confirmed and marked. Discharge Providers Provider Discharge Date: 09/15/19 Primary care physician: Mick Bunch MD Consults: 09/14/19 12:43 Consult to Discharge Planning Routine Comment: Consult to Physical Therapy Evaluate & Treat Comment: Physician Instructions: postop TKA protocol Consult to Respiratory Therapy Evaluate & Treat Comment: Physician Instructions: Evaluate and treat Discharge provider: Dian Mccarthy PA-C Summary Hospital Course Discharge Diagnosis: s/p L TKA Sleep apnea Obesity Hypertension Hyperlipidemia Colonic diverticulosis Colon follow-up Bilateral carpal tunnel syndrome Arthritis Hospital Course: Jihan was admitted for left total knee arthroplasty with Dr. Briggs. Postop day 1. Patient was ready to discharge home. He did have pain control issues last night and this morning. Patient was started on Dilaudid, and 1 dose of IV Toradol. He was able to discharge home with adequate pain control. He is eating and voiding without difficulty or assistance. He mobilize safely with physical therapy throughout his stay. ASA for DVT prophylaxis. Status at Discharge Functional status at discharge: uses cane/walker Exam Vital Signs (past 8 hours): - 09/15/19 04:00 09/15/19 07:58 09/15/19 08:00 Temperature 99.2 F 98.2 F 98.2 F Pulse Rate 76 88 88 Respiratory Rate 18 16 16 Blood Pressure 139/78 149/82 H 149/82 H Pulse Oximetry 95 95 95 09/15/19 10:01 Temperature Pulse Rate Respiratory Rate Blood Pressure Pulse Oximetry 95 Oxygen Delivery Method Room Air Oxygen Flow Rate 0 Narrative Exam Narrative: Patient lying in bed in no acute distress. He is alert and oriented x3. Calves are soft, compressible, nontender bilaterally. SCDs in place. He is able to actively dorsiflex and plantar flex. Pain well controlled with Dilaudid, vistaril, and acetaminophen. Patient can take 1-2 tabs of Vistaril when he goes home depending on his muscle spasms. He was complaining of nausea with Dilaudid use. Patient provided a prescription for Zofran if he develops nausea again. If patient's pain weans before his next appointment he can switch to oxycodone. Objective Labs Result Diagrams: 09/15/19 06:25 09/15/19 11:17 Labs: Laboratory Results - last 24 hr 09/15/19 06:25 Hgb 12.4 L Hct 36.7 L Discharge Plan Discharge Plan Patient Disposition: Home Discharge Med Rec/Prescriptions Prescriptions: New acetaminophen 325 mg Tablet 975 mg PO TID Qty: 60 RF: 0 aspirin 81 mg Tablet,Delayed Release (Dr/Ec) 81 mg PO BID Qty: 60 RF: 0 ondansetron 4 mg Tablet,Disintegrating 4 mg PO Q6HR Qty: 20 RF: 0 hydromorphone [Dilaudid] 2 mg tablet 2 mg PO Q4-6H PRN (Reason: pain) Qty: 45 RF: 0 Continued tramadol 50 mg tablet 1 tab PO BID PRN (Reason: Pain) RF: 0 losartan 100 mg tablet 1 tab PO DAILY RF: 0 rosuvastatin 10 mg tablet 1 tab PO QAM RF: 0 etodolac 500 mg Tablet 500 mg PO QAM RF: 0 aspirin 81 mg Tablet,Delayed Release (Dr/Ec) 81 mg PO BID Qty: 60 RF: 0 (DME) Outpatient Physical Therapy Qty: 1 RF: 0 Changed hydroxyzine pamoate [Vistaril] 25 mg Capsule 50 mg PO BID PRN (Reason: Muscle Spasm) Qty: 0 RF: 0 Discontinued oxycodone 5 mg Tablet 5 mg PO Q4-6H PRN (Reason: Pain, Moderate (4-6)) Qty: 1 RF: 0 Follow up/Referrals: Rolando Briggs MD [Physician] - Discharge Orders: Discharge (Order); Ordered 09/15/19 Ordered By: Dian Tam'Brien Skin/Wound/Dressing Care Report to your healthcare provider any signs of infection, such as:: chills, fever and increased pain Dressing: leave in place Visit Report/Discharge Packet Instructions: DI for Knee Replacement Discharge Data Primary Care Provider: Mick Bunch V Attending Provider: Rolando Briggs Quality VTE Deep Vein Thrombosis/Pulmonary Embolism Present on Admission: No
[2019-09-15 11:38] LABS: BUN Creatinine Ratio 16.7 (6-22); Blood Urea Nitrogen 15 mg/dL (9-20); Calcium 8.4 mg/dL (8.4-10.2); Carbon Dioxide 27 mmol/L (22-32); Chloride 101 mmol/L (98-107); Estimated Glomerular Filt Rate > 60.0 mL/min (>60); Glucose 126 mg/dL (80-110); HEMOLYSIS < 15 (0-50); Potassium 4.6 mmol/L (3.4-5.1); Sodium 133 mmol/L (137-145)
--- NOTE | 2019-09-15 11:38 | PC.NURSE ---
Addendum entered by Elina Guido R.N. 09/15/19 14:33: PAIN/DC - after lunch, pt given iv toradol and 2mg po dilaudid for pain 4-5 on scale 0/10, phys therapy in again for mobilization, ready to dc home, spouse arrived, reviewed dc instructions and scripts provided, advised pt if taking dilaudid, do not take oxycodone or tramadol, saline lock dc'd, belongings gathered, including clothing, cell phone, tsf to and chemical engineering professor escorted to spouse's car. Original Note: AM NOTE - pt is awake at bedside shift report, given dilaudid after breakfast for l knee discomfort 7 on scale 0/10, also given 25mg po vistaril for spasm, after meal did have a brief onset of nausea, given 4mg iv zofran and resolved, +bt, + flatus, later up with phys therapy and ambul hallway w/fww, PT has cleared for later discharge, will return after lunch.
--- NOTE | 2019-09-15 11:41 | PT.IPTN ---
Current Diagnoses Bilateral primary osteoarthritis of knee (09/14/19) Presence of right artificial knee joint (09/14/19) Surgery Performed Operation Date: 09/14/19 09:45 <No data on this case meets the specified criteria> Operation Date: 09/14/19 09:45 Actual Procedures p Total Knee Arthroplasty(Left) - Rolando Briggs MD Physical Therapy Treatment Note M2 PT-IP Current Condition Start: 09/14/19 16:17 Freq: NEEDED Status: Active Protocol: Document 09/14/19 15:41 JG (Rec: 09/14/19 16:48 JG [id number]) Physical Therapy Current Condition Current Condition Evaluation Date 09/14/19 Treatment Diagnosis L TKA, difficulty walking, limited activity tolerance Onset Date 09/14/19 Weight Bearing Status Weight Bearing Status Weight Bear as Tolerated M3 PT-IP Subjective Start: 09/14/19 16:17 Freq: NEEDED Status: Active Protocol: Document 09/15/19 11:08 TRIPP (Rec: 09/15/19 11:41 TRIPP [id number]) Subjective Physical Therapy Visit Type Type Treatment Note Visit Start Time 11:08 Visit Stop Time 11:28 Total Visit Minutes 20 Notes Pt wanting to use the toilet prior to ambulating in hallway Number of COOK MANAGER Visits 1 Physical Therapy Visit Comments Patient Comments I am in a pain but not too bad so far. I can get up and move a little bit. Patient Goals go home today M4 PT-IP Mobility and Gait Start: 09/14/19 16:17 Freq: NEEDED Status: Active Protocol: Document 09/15/19 11:08 TRIPP (Rec: 09/15/19 11:41 TRIPP [id number]) PT-Bed Mobility Assessment Rolling Type of Rolling Roll to Right Level of Assist Standby Assistance Supine to Sit Supine to Sit Standby Assistance,Head of Bed Elevated Scooting Scooting to Edge of Bed Standby Assistance PT-Transfer Assessment Sit to and From Stand Sit to and from Stand Standby Assistance,Use of Upper Extremities Equipment Transfer Assistive Device Gait Belt,Front Wheeled Walker Orthotic/Prosthetic Devices or Brace: No Transfers Transfer Destination Chair Transfer Technique Stand Step Pivot Transfer Ability Level of Assist Standby Assistance,Use of Upper Extremities Comments Mobility Comments Pt in bed getting blood draw. Bed mobility SBA for rolling, scooting, and standing with FWW. Pt able to sit into chair SBA also with controlled descent. Gait Assessment Gait Gait Assistance Required: Standby Assistance Distance (Feet) 50 Able to Maintain Weight Bearing Status Yes During Gait Assistive Devices Assistive Device Gait Belt,Front Wheeled Walker Orthotic/Prosthetic Devices or Brace: No Gait Deviations General Gait Pattern Antalgic,Decreased Stride Length,Decreased Feet Clearance,Flexed Trunk,Step-to Gait Factors Limiting Gait Function Factors Limiting Gait Function Decreased Activity Tolerance, Decreased Strength,Limited Range of Motion,Pain,Poor Balance Comments Gait Comments Pt ambulated to toilet using toe touch wt bearing on LLE. When cued to attepmt heel strike pt was able to get foot flat but returned to toe touch. Stated it was painful to place his foot flat. Ambulated into hallway and eventally was walking with left foot flat. Cued to do step through pattern which he did dui=ring most of his ambulation. Stair Climbing Assessment Comments Stair Climbing Comments pt has 2 ramps and does not need to use stairs M5 PT-IP Objective Assessments Start: 09/14/19 16:17 Freq: NEEDED Status: Active Protocol: Document 09/14/19 15:41 JG (Rec: 09/14/19 16:48 JG [id number]) Orientation Orientation/Cognition Level of Alertness Alert Orientation Name,Date,Place,Situation Language Function Ability No Deficits Noted Safety Awareness Understands Safety Issues Memory Description No Deficits Noted Comments No noted communication deficits. Pt noted that he still felt a little fuzzy from anesthesia. He did initially answer some questions wrongly while PT was attaining information about home environment but was able to self correct quickly. Gross Range of Motion Upper Extremity ROM Assessment Within Functional Limits Lower Extremity ROM Assessment Left Impaired Impairments L knee ROM limited d/t pain, improved with heel slides Strength Upper Extremity Strength Assessment Within Functional Limits Lower Extremity Strength Assessment Left Impaired Hip 4-/5 Knee 4-/5 Ankle 4-/5 Sensation Assessment Sensation Gross Sensation WNL Muscle Tone Muscle Tone WNL Yes M6 PT-IP Treatment Start: 09/14/19 16:17 Freq: NEEDED Status: Active Protocol: Document 09/14/19 15:41 JG (Rec: 09/14/19 16:48 JG [id number]) Physical Therapy Treatment Exercises Exercises Heel Slides Knee ROM Measurement 10-70 dg knee flexion Education Education Provided Weight Bearing Status,Post-Op Packet,Safety Other Treatments Other Treatment Performed Cued to activate quad during stance phase of gait to support body weight. M7 PT-IP Assessment and Plan Start: 09/14/19 16:17 Freq: NEEDED Status: Active Protocol: Document 09/15/19 11:08 TRIPP (Rec: 09/15/19 11:41 TRIPP [id number]) PT Summary Assessment and Plan Potential Rehabilitation Potential Excellent Status of Condition at Evaluation Stable Summary Impairments Pain,ROM,Strength,Balance, Transfers,Gait,Activity Tolerance Assessment Summary Pt is safe with bed mobility and ambulation with SBA. Requires cuening for normalizing gait pattern and achieving heel strike with greater stance on LLE. Pt safe to d/c home with assist. Pt has OP PT appointments set up. Goals Bed Mobility Goal Independent Transfer Goal Independent,Front Wheeled Walker Gait Goal Independent,Front Wheel Walker Gait Distance 250 Treatment Plan Physical Therapy Treatment Plan Bed Mobility Training,Transfer Training,Gait Training, Therapeutic Exercise,Balance Retraining,Hot or Cold Pack Other Recommendations and Next Treatment caregiver training pm tx Focus Recommendations To Nursing Amount of Assist Needed 1 Person Assist Discharge Recommendations PT Discharge Recommendations Home with Assistance, Outpatient PT
[2019-09-15] MEDS: KETOROLAC 15 MG/ML VIAL IV (11:58)
[2019-09-15 12:00] VITALS: BP 135/73; PULSE 80; RESP 17; TEMP 36.9; O2SAT 95
--- NOTE | 2019-09-15 14:08 | PT.IPTN ---
Current Diagnoses Bilateral primary osteoarthritis of knee (09/14/19) Presence of right artificial knee joint (09/14/19) Surgery Performed Operation Date: 09/14/19 09:45 <No data on this case meets the specified criteria> Operation Date: 09/14/19 09:45 Actual Procedures p Total Knee Arthroplasty(Left) - Rolando Briggs MD Physical Therapy Treatment Note M2 PT-IP Current Condition Start: 09/14/19 16:17 Freq: NEEDED Status: Active Protocol: Document 09/14/19 15:41 JG (Rec: 09/14/19 16:48 JG [id number]) Physical Therapy Current Condition Current Condition Evaluation Date 09/14/19 Treatment Diagnosis L TKA, difficulty walking, limited activity tolerance Onset Date 09/14/19 Weight Bearing Status Weight Bearing Status Weight Bear as Tolerated M3 PT-IP Subjective Start: 09/14/19 16:17 Freq: NEEDED Status: Active Protocol: Document 09/15/19 13:49 LJ (Rec: 09/15/19 14:07 LJ [id number]) Subjective Physical Therapy Visit Type Type Treatment Note Visit Start Time 13:49 Visit Stop Time 14:02 Total Visit Minutes 13 Number of LEAD PRINCIPAL TECHNICAL ARCHITECT Visits 2 Physical Therapy Visit Comments Patient Comments Nursing in room discharging pt . Im ready to go home M4 PT-IP Mobility and Gait Start: 09/14/19 16:17 Freq: NEEDED Status: Active Protocol: Document 09/15/19 13:49 LJ (Rec: 09/15/19 14:07 LJ [id number]) PT-Transfer Assessment Sit to and From Stand Sit to and from Stand Standby Assistance,Use of Upper Extremities Equipment Transfer Assistive Device Gait Belt,Front Wheeled Walker Orthotic/Prosthetic Devices or Brace: No Transfers Transfer Destination Wheelchair Transfer Technique Stand Step Pivot Transfer Ability Level of Assist Standby Assistance,Use of Upper Extremities Comments Mobility Comments Pt in chair with nurse and in room. helping pt get shoes on. Pt SBA sit<> stand chair and WC. Gait Assessment Gait Gait Assistance Required: Standby Assistance Distance (Feet) 25 Assistive Devices Assistive Device Gait Belt,Front Wheeled Walker Orthotic/Prosthetic Devices or Brace: No Gait Deviations General Gait Pattern Antalgic,Decreased Stride Length,Decreased Feet Clearance,Flexed Trunk,Step-to Gait Factors Limiting Gait Function Factors Limiting Gait Function Decreased Activity Tolerance, Decreased Strength,Limited Range of Motion,Pain,Poor Balance Comments Gait Comments Pt ambulated from chair to WC just outside room. Nursing wheeled pt to vehicle. M5 PT-IP Objective Assessments Start: 09/14/19 16:17 Freq: NEEDED Status: Active Protocol: Document 09/14/19 15:41 JG (Rec: 09/14/19 16:48 JG [id number]) Orientation Orientation/Cognition Level of Alertness Alert Orientation Name,Date,Place,Situation Language Function Ability No Deficits Noted Safety Awareness Understands Safety Issues Memory Description No Deficits Noted Comments No noted communication deficits. Pt noted that he still felt a little fuzzy from anesthesia. He did initially answer some questions wrongly while PT was attaining information about home environment but was able to self correct quickly. Gross Range of Motion Upper Extremity ROM Assessment Within Functional Limits Lower Extremity ROM Assessment Left Impaired Impairments L knee ROM limited d/t pain, improved with heel slides Strength Upper Extremity Strength Assessment Within Functional Limits Lower Extremity Strength Assessment Left Impaired Hip 4-/5 Knee 4-/5 Ankle 4-/5 Sensation Assessment Sensation Gross Sensation WNL Muscle Tone Muscle Tone WNL Yes M6 PT-IP Treatment Start: 09/14/19 16:17 Freq: NEEDED Status: Active Protocol: Document 09/14/19 15:41 JG (Rec: 09/14/19 16:48 JG [id number]) Physical Therapy Treatment Exercises Exercises Heel Slides Knee ROM Measurement 10-70 dg knee flexion Education Education Provided Weight Bearing Status,Post-Op Packet,Safety Other Treatments Other Treatment Performed Cued to activate quad during stance phase of gait to support body weight. M7 PT-IP Assessment and Plan Start: 09/14/19 16:17 Freq: NEEDED Status: Active Protocol: Document 09/15/19 13:49 LJ (Rec: 09/15/19 14:07 LJ [id number]) PT Summary Assessment and Plan Summary Assessment Summary Pt safe for DC. Left hospital with nursing taking him out to vehicle
== END 2019-09-15 13:45 | disposition home or self-care (01) ==
LOC: OR 07:47 → AC 07:48
PROVIDERS: Physician Assistant Surgical; PCP Internal Medicine; Visit Provider Orthopaedic Surgery
PROC: 0SRD0JZ Replacement of Left Knee Joint with Synthetic Substitute, Open Approach (ICD-10-PCS; CPT 27447; principal; 2019-09-14 09:45)
DX: M17.12 Unilateral primary osteoarthritis, left knee (principal); G47.33 Obstructive sleep apnea (adult) (pediatric); E66.9 Obesity, unspecified; I10 Essential (primary) hypertension; E78.5 Hyperlipidemia, unspecified; Z68.37 Body mass index [BMI] 37.0-37.9, adult
CPT/HCPCS: 27447; 36415; 73560; 80048; 85014; 85018; 94762; 97116; 97161; 97530; C1776; C9290; J0690; J1885; J2250; J2274; J2405; J2704; J3010

== ENCOUNTER 2020-08-16 08:14 | Emergency (ER) | payer MEDICARE, SELFPAY ==
[2019-09-14 13:41] VITALS: BMI 35.6
[2020-08-16] VITALS (10 sets, daily range): BP systolic 146–181; BP diastolic 67–81; PULSE 63–74; RESP 13–24; TEMP 36.8; O2SAT 95–98; BMI 35.7
--- NOTE | 2020-08-16 08:19 | ED.DIZZY ---
HPI - Dizziness General Chief Complaint: Dizziness Stated Complaint: Dizziness & Loose Stools Time Seen by Provider: 08/16/20 08:15 Source: patient and EMS Mode of arrival: EMS Limitations: no limitations History of Present Illness HPI Narrative: 64M nonsmoker with history of HTN, hyperlipidemia, and vertigo presents by EMS for evaluation of severe episodes of dizziness that started this morning when rolling over in bed. He states that he feels as if everything is spinning and he can tell it is going from the left side to the right. It makes him nauseated but he has yet to vomit. He states the episodes last between 1 and 2 minutes and seemed to be good until he moves again. He did also have 1 episode of loose stools. He denies other neurologic symptoms such as blurred vision, trouble speech or numbness, tingling or weakness. He denies any chest pain or shortness of breath. He has had no fever or chills. He denies headache runny nose, sore throat or cough, and denies any exposure to persons known to be positive for COVID-19. He has had episodes of vertigo in the past which were very similar to this. He denies any recent trauma or head injury. Related Data Home Medications Medication Instructions Recorded Confirmed losartan 1 tab PO DAILY 12/13/18 09/14/19 rosuvastatin 1 tab PO QAM 12/13/18 09/14/19 tramadol 1 tab PO BID PRN 12/13/18 09/14/19 etodolac 500 mg PO QAM 03/26/19 09/14/19 Previous Rx's Medication Instructions Recorded Outpatient Physical Therapy #1 ea 04/13/19 aspirin 81 mg PO BID #60 tab 04/13/19 acetaminophen 975 mg PO TID #60 tab 09/15/19 aspirin 81 mg PO BID #60 tab 09/15/19 hydromorphone [Dilaudid] 2 mg PO Q4-6H PRN #45 tab 09/15/19 hydroxyzine pamoate [Vistaril] 50 mg PO BID PRN #0 cap 09/15/19 ondansetron 4 mg PO Q6HR #20 tab 09/15/19 meclizine 25 mg PO TID PRN #20 tab 08/16/20 Allergies Allergy/AdvReac Type Severity Reaction Status Date / Time No Known Drug Allergies Allergy Unknown Verified 08/16/20 08:36 [NO KNOWN DRUG ALLERGIES] Review of Systems Constitutional Constitutional: Denies chills, Denies fatigue, Denies fever(s), Denies frequent falls, Denies lethargy and Denies weakness Eyes Eyes: Denies change in vision, Denies eye discharge, Denies irritation and Denies loss of vision ENT Ears, Nose, Mouth, and Throat: Denies change in voice, Reports dizziness, Denies neck pain, Denies sore throat and Denies throat swelling Cardiovascular Cardiovascular: Denies chest pain, Denies irregular heart rhythm, Denies lightheadedness, Denies palpitations, Denies dyspnea, Denies dyspnea on exertion and Denies orthopnea Respiratory Respiratory: Denies cough, Denies dyspnea, Denies dyspnea on exertion and Denies wheezing Gastrointestinal Gastrointestinal: Denies abdominal pain, Denies change in bowel habits, Reports diarrhea, Reports nausea and Denies vomiting Musculoskeletal Musculoskeletal: Denies neck pain and Denies numbness Integumentary/Breasts Skin/Breast: Denies pruritus, Denies erythema, Denies rash and Denies wounds Neurologic Neurologic: Denies behavioral changes, Denies confusion, Reports dizziness, Denies frequent falls, Denies loss of vision, Denies numbness and Denies weakness Psychiatric Psychiatric: Denies anxiety, Denies behavioral changes, Denies confusion, Denies depression, Denies homicidal ideation and Denies suicidal ideation Endocrine Endocrine: Denies fatigue, Denies flushing and Denies palpitations Hematologic/Lymphatic Hematologic/Lymphatic: Denies easy bruising Allergic/Immunologic Allergic/Immunologic: Denies urticaria, Denies throat swelling and Denies wheezing Patient History Medical History Bilateral bunions (Acute) Bilateral carpal tunnel syndrome (Acute) Bilateral knee pain (Acute) Colon polyps (Acute) Edema (Acute) Enlarged prostate (Acute) Hearing impaired (Acute) HLD (hyperlipidemia) (Acute) HTN (hypertension) (Acute) Nerve damage (Acute) RANJIT (obstructive sleep apnea) (Acute) Surgical History No history of previous surgery (Acute) Social History household members: spouse Smoking Status: Former smoker alcohol intake: current Smoking Status: Former smoker alcohol intake frequency: 0-2 drinks per day Substance Use Type: does not use Exam Narrative Exam Narrative: GENERAL: [64] year old patient appears stated age. Well-nourished, well-developed patient, in mild distress. Pulling an emesis bag HEAD: Atraumatic. Normocephalic. EYES: Pupils equal round and reactive. Extraocular motions intact. No scleral icterus. No injection or drainage. ENT: Nose without bleeding, purulent drainage. Throat without erythema, tonsillar hypertrophy or exudate. Airway patent. NECK: Trachea midline. Non tender CARDIOVASCULAR: Regular rate and rhythm without murmurs, gallops, or rubs. RESPIRATORY: Clear to auscultation. Breath sounds equal bilaterally. No wheezes, rales, or rhonchi. GASTROINTESTINAL: Abdomen soft, non-tender, nondistended. EXTREMITIES: No edema or joint tenderness. BACK: Nontender without deformity or crepitance. No flank tenderness. NEURO: AOx3. SKIN: No rash or erythema of visible areas NIH Stroke Scale 1a. LOC: Patient is alert and keenly responsive (0) 1b. LOC Questions: Patient answers both LOC questions accurately (0) 1c. LOC Commands: Patient performs both tasks correctly (0) 2. Best Gaze: Normal (0) 3. Visual: No visual loss (0) 4. Facial palsy: Normal symmetrical movements (0) 5. Motor arm: No drift (0) 6. Motor leg: No drift (0) 7. Limb ataxia: Absent (0) 8. Sensory: Normal (0) 9. Best language: No aphasia; normal (0) 10. Dysarthria: Normal (0) 11. Extinction and inattention: No abnormality (0) NIHSS: 0 Initial Vital Signs Initial Vital Signs: Vital Signs Temperature 98.3 F 08/16/20 08:32 Pulse Rate 69 08/16/20 08:32 Respiratory Rate 18 08/16/20 08:32 Blood Pressure 146/79 H 08/16/20 08:32 Pulse Oximetry 98 08/16/20 08:32 Course Orders Ordered: ED Orders 08/16/20 08:20 EKG-12 Lead Stat 08/16/20 09:11 Complete Blood Count AUTO DIFF Stat Comprehensive Metabolic Panel Stat Troponin & CK Cardiac Panel Stat 08/16/20 10:21 CT head/brain wo con Stat 08/16/20 11:20 MR stroke Stat Ondansetron HCl (Zofran) 4 mg IV Q4HR PRN PRN Reason: Nausea And Vomiting Last Admin: 08/16/20 09:05 Dose: 4 mg Documented by: DULCE Discontinued Medications Sodium Chloride (Normal Saline 0.9%) 1,000 mls @ 1,000 mls/hr IV BOLUS ONE Stop: 08/16/20 09:19 Last Admin: 08/16/20 09:06 Dose: 1,000 mls/hr Documented by: DULCE Meclizine HCl (Antivert) 50 mg PO NOW ONE Stop: 08/16/20 08:21 Last Admin: 08/16/20 09:05 Dose: 50 mg Documented by: DULCE Reevaluation(s) Reevaluation #1: Patient has significant but not complete resolution of dizziness after meclizine, CT of the head ordered. Reevaluation #2: patient ambulates without much difficulty, he does get dizzy if he looks at the floor, but does very well on the whole. Vital Signs Vital signs: Vital Signs - 8 hr 08/16/20 08:32 08/16/20 09:51 08/16/20 10:00 Temperature 98.3 F Pulse Rate 69 71 66 Pulse Rate [Orthostatic Lying] Pulse Rate [Orthostatic Sitting] Pulse Rate [Orthostatic Standing] Respiratory Rate 18 23 13 Blood Pressure 146/79 H Blood Pressure [Orthostatic Lying] Blood Pressure [Orthostatic Sitting] Blood Pressure [Orthostatic Standing] Pulse Oximetry 98 96 96 08/16/20 10:01 08/16/20 10:37 08/16/20 11:00 Temperature Pulse Rate 69 68 Pulse Rate [Orthostatic Lying] Pulse Rate [Orthostatic Sitting] Pulse Rate [Orthostatic Standing] Respiratory Rate 21 16 Blood Pressure 176/79 H Blood Pressure [Orthostatic Lying] Blood Pressure [Orthostatic Sitting] Blood Pressure [Orthostatic Standing] Pulse Oximetry 98 95 08/16/20 11:27 08/16/20 11:30 08/16/20 11:32 Temperature Pulse Rate 71 74 Pulse Rate [Orthostatic Lying] Pulse Rate [Orthostatic Sitting] Pulse Rate [Orthostatic Standing] Respiratory Rate 16 24 Blood Pressure 156/73 H 156/73 H Blood Pressure [Orthostatic Lying] Blood Pressure [Orthostatic Sitting] Blood Pressure [Orthostatic Standing] Pulse Oximetry 95 96 08/16/20 13:55 Temperature Pulse Rate 65 Pulse Rate [Orthostatic Lying] 63 Pulse Rate [Orthostatic Sitting] 65 Pulse Rate [Orthostatic Standing] 72 Respiratory Rate 16 Blood Pressure Blood Pressure [Orthostatic Lying] 181/81 H Blood Pressure [Orthostatic Sitting] 165/77 H Blood Pressure [Orthostatic Standing] 155/67 H Pulse Oximetry 98 MDM - Dizziness Lab Data Result diagrams: 08/16/20 09:11 08/16/20 09:11 Labs: Lab Results 08/16/20 08/16/20 Range/Units 09:11 09:11 WBC 4.8 (4.5-11.0) X10^3/uL RBC 4.68 (4.5-5.9) X10^6/uL Hgb 14.1 (13.5-17.5) g/dL Hct 42.1 (41-53) % MCV 89.9 (80-100) fL MCH 30.1 (26-34) PG MCHC 33.5 (30-36) % RDW 13.9 (11.6-14.8) % Plt Count 225 (150-400) X10^3/uL Neut % (Auto) 58.0 (50-75) % Lymph % (Auto) 25.2 (25-40) % Weston % (Auto) 11.7 (3-14) % Eos % (Auto) 4.2 H (2-4) % Baso % (Auto) 0.9 (0-2) % Neut # (Auto) 2800 (2637-9530) /uL Lymph # (Auto) 1200 (0383-1635) /uL Weston # (Auto) 600 (0-900) /uL Eos # (Auto) 200 (0-450) /uL Baso # (Auto) 0 (0-100) /uL Sodium 140 (137-145) mmol/L Potassium 4.6 (3.4-5.1) mmol/L Chloride 107 (98-107) mmol/L Carbon Dioxide 26 (22-32) mmol/L BUN 16 (9-20) mg/dL Creatinine 0.85 (0.66-1.25) mg/dL Estimated GFR > 60.0 (>60) mL/min BUN/Creatinine Ratio 18.8 (6-22) Glucose 114 H (80-110) mg/dL Calcium 9.3 (8.4-10.2) mg/dL Total Bilirubin 0.5 (0.2-1.3) mg/dL AST 33 (17-59) IU/L ALT 40 (<50) IU/L Alkaline Phosphatase 67 (38-126) U/L Total Creatine Kinase 181 H (55-170) U/L CK-MB (CK-2) 1.79 (<2.37) ng/mL CK-MB (CK-2) Rel Index 1.0 L (1.5-5.0) % Troponin I < 0.012 (0.01-0.034) ng/mL Total Protein 7.3 (6.3-8.2) g/dL Albumin 4.4 (3.5-5.0) g/dL Globulin 2.9 (1.7-4.1) g/dL Albumin/Globulin Ratio 1.5 (1.0-2.8) Imaging Data CT scan - head: Radiologist's Impression: Chart Viewer Diagnostics DATE TYPE STATUS REF RANGE/AUTHOR Hx 08/16/20 10:21 Rolando Sow 09/14/19 06:00 Mary Corrigan 04/11/19 06:00 Bin Bernal 02/05/19 18:15 Rolando Sow 12/13/18 10:29 Jihan Guardado 64, M112/10/1954 [facility] R05 172.72cm 106.594kg BMI: 35.7kg/m? Dizziness Search Chart No Data to Display NF - Not included in interaction checking ONSET Today 11:32 Jihan Guardado 64 M [address] [address] [address] Scan Report Signed Patient: Jihan Guardado DMR#: [id number] : 4Acct:[id number] Age/Sex: 64 / MDate of Service: 08/16/20 Loc: ED Accession Number: [id number] Procedure: CT head/brain wo con Ordering Provider: Milton Avila D.O. PROCEDURE: CT HEAD/BRAIN WO CON INDICATIONS: dizziness TECHNIQUE: Noncontrast 4.5 mm thick angled axial sections acquired from the foramen magnum to the vertex, with coronal and sagittal reformats. For radiation dose reduction, the following was used: automated exposure control, adjustment of mA and/or kV according to patient size. COMPARISON: None. FINDINGS: Image quality: Excellent. CSF spaces: Basal cisterns are patent. No extra-axial fluid collections. Ventricles are normal in size and shape. Brain: No intracranial hemorrhage, mass, or mass effect. Feliciano-white matter interface appears preserved. There is a small indistinct hypodensity in the right basal ganglia which may represent sequelae of a small lacunar infarct of indeterminate acuity. Skull and face: Calvarium and visualized facial bones are intact, without suspicious lesions. Sinuses: Visualized sinuses and mastoids are clear. IMPRESSION: 1. No acute intracranial hemorrhage or mass effect. 2. Small hypodensity in the right basal ganglia is nonspecific and may represent a lacunar infarct of indeterminate acuity. Dictated by: Rolando Sow M.D. on 08/16/2020 at 9:42 Approved by: Rolando Sow M.D. on 08/16/2020 at 9:45 MRI Head/Neck: Radiologist's Impression: Chart Viewer Diagnostics DATE TYPE STATUS REF RANGE/AUTHOR Hx 08/16/20 11:20 Rolando Sow 08/16/20 10:21 Rolando Sow 09/14/19 06:00 Mary Corrigan 04/11/19 06:00 Bin Bernal 02/05/19 18:15 Rolando Sow 12/13/18 10:29 Jihan Guardado 64, M112/10/1954 [facility], [facility] ED R05 172.72cm 106.594kg BMI: 35.7kg/m? Dizziness Search Chart No Data to Display NF - Not included in interaction checking ONSET Today 13:55 Jihan Guardado 64 M [address] [address] Magnetic Resonance Report Signed Patient: Jihan Guardado DMR#: [id number] : 4Acct:[id number] Age/Sex: 64 / MDate of Service: 08/16/20 Loc: ED Accession Number: [id number] Procedure: MR stroke Ordering Provider: Milton Avila D.O. /PROCEDURE: MR STROKE Pre- and post-contrast brain MRI, non-contrast brain MR angiogram, pre- and postcontrast neck MR angiogram INDICATIONS: stroke symptoms, dizziness, not classic vertigo TECHNIQUE: Brain: Noncontrast axial T1 spin echo, axial T2 fast spin echo, sagittal and axial FLAIR, coronal T2 fast spin echo, axial gradient echo, axial diffusion and ADC through the brain. After the administration of contrast, axial 3D VIBE of the cranial vasculature and brain. Brain MRA: Non-contrast 3-D time of flight MR angiogram, with multiple jmfblsa-omagadlqu-ijaolfvkke (MIP) reformats performed. Neck MRA: Axial and sagittal TruFISP through the neck. Coronal dynamic MR angiogram during administration of contrast in the arterial and venous phases, with 3-dimenstional iqnoipo-lyafwkezu-ppzigvgvbg (MIP) reformats constructed from subtraction images. COMPARISON: [facility], CT, CT HEAD/BRAIN WO CON, 08/16/2020, 10:23. FINDINGS: Image quality: Excellent. BRAIN: CSF spaces: There is mild cerebral volume loss with prominence of the ventricles and sulci. Basal cisterns are patent. No extra-axial fluid collections. Brain: Diffusion weighted images demonstrate no acute infarcts. No intracranial hemorrhage, mass, or mass effect. . Brainstem appears normal. Normal intravascular flow voids are present. No abnormal intracranial enhancement. Skull and face: Calvarial marrow signal is normal. Orbits appear normal. Sinuses: There is mild mucosal opacification of the right mastoid air cells. Mild mucosal thickening is demonstrated within the ethmoid sinuses. BRAIN MR ANGIOGRAM: Anterior circulation: Intracranial internal carotid arteries are normal in size and patent bilaterally. The flow within the paired anterior cerebral arteries is symmetric and patent bilaterally. The flow within the middle cerebral arteries is symmetric and patent bilaterally. The anterior communicating artery is patent. No high-grade stenoses, occlusions, or aneurysms. Posterior circulation: There is a left dominant vertebrobasilar system. The visualized portions of the vertebral arteries are patent and join to form a patent basilar artery. The flow within the posterior cerebral arteries is symmetric and patent bilaterally. No high-grade stenoses, occlusions, or aneurysms. NECK MR ANGIOGRAM: Carotids: Great vessels demonstrate a 4 vessel aortic arch with separate origin of the left vertebral artery as they arise from the aortic arch. The origins of the common carotid arteries appear patent. The calibers and courses of both common carotid arteries are normal. The carotid bulbs appear widely patent. The internal carotid arteries demonstrate normal course and caliber. Posterior circulation: There is a left dominant vertebrobasilar system. The origins of the vertebral arteries appear grossly patent with evaluation limited by motion artifact. More superior portions of both vertebral arteries demonstrate normal course and caliber, and join to form a normal appearing basilar artery. Miscellaneous: Subclavian arteries appear patent. Pre-contrast images through the neck demonstrate no moderate to severe spinal canal narrowing at C5-C6. IMPRESSION: BRAIN MRI: 1. No evidence of infarct or other acute intracranial abnormality. 2. Partial opacification of the right mastoid air cells suggestive of mastoiditis. BRAIN MR ANGIOGRAM: 1. No high-grade stenosis or occlusion of the central intracranial arteries. NECK MR ANGIOGRAM: 1. No high-grade stenosis or occlusion of the head and neck arteries. The carotid bulbs appear widely patent. Dictated by: Rolando Sow M.D. on 08/16/2020 at 11:43 Approved by: Rolando Sow M.D. on 08/16/2020 at 11:54 ECG Data Attestation: I personally reviewed and interpreted this ECG as follows: Interpretation: EKG is normal sinus rhythm rate [70 ] and free of any signs of ischemia or ectopy. No ST segmental elevation or depression. No T wave inversions Discharge Plan Departure Patient Disposition: Home Clinical Impression: Vertigo Instructions: DI for Vertigo Activity Restrictions/Additional Instructions: *You have been diagnosed with [dizziness, most likely a peripheral vertigo as your stroke evaluation is very reassuring.] *What to do: *Take medications as directed: Meclizine prescription was electronically transmitted to [facility] *Follow up with your primary care provider in 2-3 days, call for an appointment. Let them know you were seen in the Emergency Department and that we ask that you be seen in follow up *Return to ER if you should have any new, worsening or concerning symptoms Prescriptions: New meclizine 25 mg tablet 25 mg PO TID PRN (Reason: dizziness) Qty: 20 RF: 0 No Action tramadol 50 mg tablet 1 tab PO BID PRN (Reason: Pain) RF: 0 losartan 100 mg tablet 1 tab PO DAILY RF: 0 rosuvastatin 10 mg tablet 1 tab PO QAM RF: 0 etodolac 500 mg Tablet 500 mg PO QAM RF: 0 aspirin 81 mg Tablet,Delayed Release (Dr/Ec) 81 mg PO BID Qty: 60 RF: 0 (DME) Outpatient Physical Therapy Qty: 1 RF: 0 acetaminophen 325 mg Tablet 975 mg PO TID Qty: 60 RF: 0 aspirin 81 mg Tablet,Delayed Release (Dr/Ec) 81 mg PO BID Qty: 60 RF: 0 ondansetron 4 mg Tablet,Disintegrating 4 mg PO Q6HR Qty: 20 RF: 0 hydromorphone [Dilaudid] 2 mg tablet 2 mg PO Q4-6H PRN (Reason: pain) Qty: 45 RF: 0 hydroxyzine pamoate [Vistaril] 25 mg Capsule 50 mg PO BID PRN (Reason: Muscle Spasm) Qty: 0 RF: 0 Referrals: Mick Bunch MD [Primary Care Provider] -
[2020-08-16] MEDS: MECLIZINE HCL 12.5 MG TABLET 50 MG PO (09:05)
[2020-08-16] MEDS: ONDANSETRON 4 MG/2 ML INJ IV (09:05)
[2020-08-16] MEDS: SODIUM CHLORIDE 0.9% 1,000 ML 1000 ML IV (09:06)
[2020-08-16 09:22] LABS: Add Manual Diff / Slide Review NO; Basophils Absolute Auto 0 /uL (0-100); Basophils Percent Auto 0.9 % (0-2); Eosinophils Absolute Auto 200 /uL (0-450); Eosinophils Percent Auto 4.2 % (2-4); Hematocrit 42.1 % (41-53); Hemoglobin 14.1 g/dL (13.5-17.5); Lymphocytes Absolute Auto 1200 /uL (1100-4500); Lymphocytes Percent Auto 25.2 % (25-40); Mean Corpuscular HGB Conc 33.5 % (30-36); Mean Corpuscular Hemoglobin 30.1 PG (26-34); Mean Corpuscular Volume 89.9 fL (80-100); Monocytes Absolute Auto 600 /uL (0-900); Monocytes Percent Auto 11.7 % (3-14); Neutrophils Absolute Auto 2800 /uL (1500-7000); Platelet Count 225 X10^3/uL (150-400); Red Blood Cell Count 4.68 X10^6/uL (4.5-5.9); Red Cell Distribution Width 13.9 % (11.6-14.8); White Blood Cell Count 4.8 X10^3/uL (4.5-11.0)
[2020-08-16 09:35] LABS: Alanine Aminotransferase 40 IU/L (<50); Albumin 4.4 g/dL (3.5-5.0); Albumin Globulin Ratio 1.5 (1.0-2.8); Alkaline Phosphatase 67 U/L (38-126); Aspartate Aminotransferase 33 IU/L (17-59); BUN Creatinine Ratio 18.8 (6-22); Bilirubin Total 0.5 mg/dL (0.2-1.3); Blood Urea Nitrogen 16 mg/dL (9-20); Calcium 9.3 mg/dL (8.4-10.2); Carbon Dioxide 26 mmol/L (22-32); Chloride 107 mmol/L (98-107); Creatine Kinase 181 U/L (55-170); Estimated Glomerular Filt Rate > 60.0 mL/min (>60); Globulin 2.9 g/dL (1.7-4.1); Glucose 114 mg/dL (80-110); HEMOLYSIS < 15 (0-50); Potassium 4.6 mmol/L (3.4-5.1); Sodium 140 mmol/L (137-145); Total Protein 7.3 g/dL (6.3-8.2)
[2020-08-16 09:46] LABS: Troponin I < 0.012 ng/mL (0.01-0.034)
[2020-08-16 09:50] LABS: Creatine Kinase MB 1.79 ng/mL (<2.37)
--- NOTE | 2020-08-16 10:21 | DI.CT.S_ITS ---
PROCEDURE: CT HEAD/BRAIN WO CON INDICATIONS: dizziness TECHNIQUE: Noncontrast 4.5 mm thick angled axial sections acquired from the foramen magnum to the vertex, with coronal and sagittal reformats. For radiation dose reduction, the following was used: automated exposure control, adjustment of mA and/or kV according to patient size. COMPARISON: None. FINDINGS: Image quality: Excellent. CSF spaces: Basal cisterns are patent. No extra-axial fluid collections. Ventricles are normal in size and shape. Brain: No intracranial hemorrhage, mass, or mass effect. Feliciano-white matter interface appears preserved. There is a small indistinct hypodensity in the right basal ganglia which may represent sequelae of a small lacunar infarct of indeterminate acuity. Skull and face: Calvarium and visualized facial bones are intact, without suspicious lesions. Sinuses: Visualized sinuses and mastoids are clear. IMPRESSION: 1. No acute intracranial hemorrhage or mass effect. 2. Small hypodensity in the right basal ganglia is nonspecific and may represent a lacunar infarct of indeterminate acuity. Dictated by: Rolando Sow M.D. on 08/16/2020 at 9:42 Approved by: Rolando Sow M.D. on 08/16/2020 at 9:45
--- NOTE | 2020-08-16 11:20 | DI.MRI.S_ITS ---
/PROCEDURE: MR STROKE Pre- and post-contrast brain MRI, non-contrast brain MR angiogram, pre- and postcontrast neck MR angiogram INDICATIONS: stroke symptoms, dizziness, not classic vertigo TECHNIQUE: Brain: Noncontrast axial T1 spin echo, axial T2 fast spin echo, sagittal and axial FLAIR, coronal T2 fast spin echo, axial gradient echo, axial diffusion and ADC through the brain. After the administration of contrast, axial 3D VIBE of the cranial vasculature and brain. Brain MRA: Non-contrast 3-D time of flight MR angiogram, with multiple hyledpn-kralwgpys-hwzyayvxtu (MIP) reformats performed. Neck MRA: Axial and sagittal TruFISP through the neck. Coronal dynamic MR angiogram during administration of contrast in the arterial and venous phases, with 3-dimenstional bgsjyjs-onxtliqcy-lknfcdqkln (MIP) reformats constructed from subtraction images. COMPARISON: [facility], CT, CT HEAD/BRAIN WO CON, 08/16/2020, 10:23. FINDINGS: Image quality: Excellent. BRAIN: CSF spaces: There is mild cerebral volume loss with prominence of the ventricles and sulci. Basal cisterns are patent. No extra-axial fluid collections. Brain: Diffusion weighted images demonstrate no acute infarcts. No intracranial hemorrhage, mass, or mass effect. . Brainstem appears normal. Normal intravascular flow voids are present. No abnormal intracranial enhancement. Skull and face: Calvarial marrow signal is normal. Orbits appear normal. Sinuses: There is mild mucosal opacification of the right mastoid air cells. Mild mucosal thickening is demonstrated within the ethmoid sinuses. BRAIN MR ANGIOGRAM: Anterior circulation: Intracranial internal carotid arteries are normal in size and patent bilaterally. The flow within the paired anterior cerebral arteries is symmetric and patent bilaterally. The flow within the middle cerebral arteries is symmetric and patent bilaterally. The anterior communicating artery is patent. No high-grade stenoses, occlusions, or aneurysms. Posterior circulation: There is a left dominant vertebrobasilar system. The visualized portions of the vertebral arteries are patent and join to form a patent basilar artery. The flow within the posterior cerebral arteries is symmetric and patent bilaterally. No high-grade stenoses, occlusions, or aneurysms. NECK MR ANGIOGRAM: Carotids: Great vessels demonstrate a 4 vessel aortic arch with separate origin of the left vertebral artery as they arise from the aortic arch. The origins of the common carotid arteries appear patent. The calibers and courses of both common carotid arteries are normal. The carotid bulbs appear widely patent. The internal carotid arteries demonstrate normal course and caliber. Posterior circulation: There is a left dominant vertebrobasilar system. The origins of the vertebral arteries appear grossly patent with evaluation limited by motion artifact. More superior portions of both vertebral arteries demonstrate normal course and caliber, and join to form a normal appearing basilar artery. Miscellaneous: Subclavian arteries appear patent. Pre-contrast images through the neck demonstrate no moderate to severe spinal canal narrowing at C5-C6. IMPRESSION: BRAIN MRI: 1. No evidence of infarct or other acute intracranial abnormality. 2. Partial opacification of the right mastoid air cells suggestive of mastoiditis. BRAIN MR ANGIOGRAM: 1. No high-grade stenosis or occlusion of the central intracranial arteries. NECK MR ANGIOGRAM: 1. No high-grade stenosis or occlusion of the head and neck arteries. The carotid bulbs appear widely patent. Dictated by: Rolando Sow M.D. on 08/16/2020 at 11:43 Approved by: Rolando Sow M.D. on 08/16/2020 at 11:54
--- NOTE | 2020-08-16 13:58 | PC.NURSE ---
Patient was able to sit up at bedside before ambulating. Patient ambulated around the department and stated he is feeling much better. Pt still is unable to move his head forward to look down without becoming dizzy. Patient states he can move his eyes to look down with no issues, just not able to tilt his head.
== END 2020-08-16 14:41 | disposition home or self-care (01) ==
PROVIDERS: Emergency Provider Emergency Medicine; PCP Internal Medicine
DX: R42 Dizziness and giddiness (principal); I10 Essential (primary) hypertension; E78.5 Hyperlipidemia, unspecified
CPT/HCPCS: 70450; 70548; 70553; 80053; 82550; 82553; 84484; 85025; 93005; 96374; 99284; A9579; J2405

== ENCOUNTER 2021-01-20 12:15 | Outpatient (RCR) | payer MEDICARE, SELFPAY ==
[2019-09-14 13:41] VITALS: BMI 35.6
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
--- NOTE | 2020-12-17 16:12 | PT.OPPOC ---
Physical, Occupational & Speech Therapy At [facility] Current Diagnoses Benign paroxysmal vertigo, bilateral (12/17/20) Visit Care Team Role Provider Type Mick Bunch MD Attending Provider Physician Primary Care Provider Referring Provider Specialty: Internal Medicine Address: [address] [place] [address], [address] Email: [email or web address] Plan Of Care PT-OP-T Assessment and Plan Start: 12/12/20 07:25 Freq: Status: Active Protocol: Document 12/17/20 12:13 MB (Rec: 12/17/20 15:59 MB [id number]) Physical Therapy Assessment Rehab Potential Rehabilitation Potential Fair Evaluation Complexity Number of Personal Factors/Comorbidities 1-2 Number of Body Systems Impaired 1-2 Clinical Presentation at Evaluation Evolving Impairments Impairments Activity Tolerance,Balance, Functional Activities, Functional Mobility,Pain, Posture,ROM,Soft Tissue Mobility,Strength,Vestibular Other Impairments Personal factors include decreased non-caffeinated fluid intake and pt drinks 1 cup of coffee, green tea, whisky and 1-2 glasses of wine many days a week and increased body mass. Body systems affected include musculoskeletal and vestibular . 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 Goals Three Manager Research Goal (LTG) Pt will perform progressive HEP with I including postural, cervical and thoracic mobility, VOR and balance exercises to improve cervicogenic symptoms and balance by 02/13/21. LTG Duration 8 weeks Two Nursing Home Goal (LTG) Pt will present with improved cervical AROM to at least 45 deg B rotation to improve head turns with gait and driving by 02/13/21. LTG Duration 8 weeks One Manager Research Goal (LTG) Pt will present with improved DHI score to reflect no more than 15% perception of handicap to improve overall quality of life by 02/13/21. LTG Duration 8 weeks Assessment Summary Assessment Pt is a 65 y/o male presenting with dizziness that he describes as twirly since when he had an episode when rolling from the left to the right in bed. Pt went to the ED and had a work-up which he reports was negative. PT is able to review findings in the EMR today. He states he was given Meclizine and has been using it since The ED visit. He states that it has not been very helpful. This date, B Kelly-Hallpike and Roll Test are negative for nystagmus. He has no dizziness with Roll Test B. He reports equal transient dizziness with B [place]-Hallpike and return to sitting from B Kelly-Hallpike. Orthostatic assessment is negative and pt presents with high BP in supine and standing . Pt presents with postural changes and limited cervical ROM. He presents with tension B posterior cervical musculature, left greater than right SCM and middle scalene. He reports degenerative changes in his neck and right shoulder and that he has left sided eye and frontal HAs. 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 Given dizziness, neck discomfort, EPSTEIN and limited cervical ROM, PT does feel that pt's dizziness has a large cervical component. Pt demonstrates how he rolls over in the bed and he lifts his head to roll over and this may engage cervical musculature and mimic BPPV symptoms. Will assess VOR in future treatments. Pt will benefit from ongoing PT for cervical, vestibular and balance treatments. Manual PT may also help myofascial changes. Barriers to PT include long- time and multi-area joint and postural changes and increased body mass. Physical Therapy Plan Frequency and Duration Frequency of Treatment 2x/Week Duration of Treatment 8 weeks Plan of Care Start Date 12/17/20 Plan of Care End Date 02/13/21 Therapeutic Interventions Therapeutic Interventions Balance Training,Canalithic Repositioning,Coordination Training,Gait Training,Home Exercise Program,Joint Mobilizations,Manual Therapy, Neuromuscular Re-education, Patient/Caregiver Education, Self-Care/Home Management, Sensory Integration,Soft Tissue Mobilization, Therapeutic Activities, Therapeutic Exercises, Vestibular Rehabilitation Modalities Cold Pack/Ice Massage,Electric Stimulation,Hot Packs, Ultrasound Next Visit Focus/Plan Next Note Type Treatment Note Next Visit Plan Assess VOR, initiate cervical and thoracic exercises including self-racquet ball massage, SCM mobilization and sitting thoracic rotation to improve posture and range Plan of Care Dates Plan of Care Start Date 12/17/20 Plan of Care End Date 02/13/21 Electronically Signed by: Violeta Segal PT 12/17/20 [id number] Please Sign and Return: I have reviewed this Plan of Care and certify that the skilled therapy services above are required to meet the patient?s needs. Physician Signature Date Printed Name and Credentials Clinical Instructor Signature Printed Name and Credentials
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
== END 2021-01-30 08:15 ==
LOC: PHYS 12:15
PROVIDERS: PCP Internal Medicine; Referring Provider Internal Medicine; Visit Provider Internal Medicine
DX: H81.13 Benign paroxysmal vertigo, bilateral (principal)
CPT/HCPCS: 97110; 97112; 97140; 97161; 97535

== ENCOUNTER → 2021-02-18 18:51 | Outpatient (ROUT) | payer MEDICARE, SELFPAY ==
[2019-09-14 13:41] VITALS: BMI 35.6
[2021-02-18 19:33] LABS: HEMOLYSIS 17 (0-50)
[2021-02-18 19:38] LABS: Aspartate Aminotransferase 37 IU/L (17-59); Blood Urea Nitrogen 16 mg/dL (9-20); Calcium 9.6 mg/dL (8.4-10.2); Carbon Dioxide 27 mmol/L (22-32); Chloride 105 mmol/L (98-107); Cholesterol 171 mg/dL (140-199); Estimated Glomerular Filt Rate > 60.0 mL/min (>60); Glucose 89 mg/dL (80-110); HDL Cholesterol 64 mg/dL (40-60); LDL Cholesterol Calculated 96 mg/dL (<100); Potassium 4.9 mmol/L (3.4-5.1); Sodium 141 mmol/L (137-145); Triglycerides 55 mg/dL (35-150)
[2021-02-19 05:33] LABS: Prostate Specific Antigen 1.04 ng/mL (0.10-4.00)
== END ==
PROVIDERS: PCP Internal Medicine; Visit Provider Internal Medicine
DX: E78.2 Mixed hyperlipidemia (principal); N40.0 Benign prostatic hyperplasia without lower urinary tract symptoms; I10 Essential (primary) hypertension
CPT/HCPCS: 80048; 80061; 84153; 84450

== ENCOUNTER → 2022-03-26 17:39 | Outpatient (CLI) | payer MEDICARE, SELFPAY ==
[2019-09-14 13:41] VITALS: BMI 35.6
--- NOTE | 2022-03-26 17:40 | DI.RAD.S_ITS ---
PROCEDURE: XR CERVICAL SPINE 2V OR 3V INDICATIONS: neck pain TECHNIQUE: 3 view(s) of the cervical spine were acquired. COMPARISON: None. FINDINGS: Bones: No fractures or dislocations to the C7-T1 level. Straightening of normal cervical lordosis is seen. Degenerative endplate changes and bilateral facet hypertrophic changes are noted throughout cervical spine more prominent at C5-6 and C6-7 levels. The lateral masses of C1 appear intact on the odontoid view. No suspicious bony lesions. Soft tissues: No prevertebral soft tissue swelling. IMPRESSION: Degenerative disc disease throughout cervical spine as above. No acute fracture or dislocation. Dictated by: Bin Bernal M.D. on 03/26/2022 at 18:02 Approved by: Bin Bernal M.D. on 03/26/2022 at 18:02
== END ==
PROVIDERS: PCP Internal Medicine; Referring Provider Internal Medicine; Visit Provider Internal Medicine
DX: M47.812 Spondylosis without myelopathy or radiculopathy, cervical region (principal); M50.322 Other cervical disc degeneration at C5-C6 level
CPT/HCPCS: 72040

== ENCOUNTER → 2022-04-09 16:14 | Outpatient (CLI) | payer MEDICARE, SELFPAY ==
[2019-09-14 13:41] VITALS: BMI 35.6
--- NOTE | 2022-04-09 16:15 | DI.MRI.S_ITS ---
PROCEDURE: MR CERVICAL SPINE WO CON INDICATIONS: neck pain TECHNIQUE: Noncontrast sagittal T1 spin echo and T2 fast spin echo, sagittal STIR, foraminal oblique sagittal T2 fast spin echo, and axial gradient echo or T2 fast spin echo through the cervical spine. COMPARISON: None. FINDINGS: Image quality: This examination is limited by involuntary motion artifact. Alignment and Curvature: There is straightening of the normal cervical lordosis. Minimal retrolisthesis can be seen at C5-C6. Bone Marrow: Marrow demonstrates normal overall signal. Spinal Cord: Visualized spinal cord has normal size and signal. No cerebellar tonsillar herniation. Paraspinous Soft Tissues: No paravertebral masses. Prevertebral soft tissues are normal in thickness. C2-C3: The disc height is well-preserved. Loss of disc signal is seen at this level. A mild degree of generalized disc osteophyte complex is seen. There is at least moderate right-sided and mild left-sided facet hypertrophy. There is mild right-sided and no left-sided neural foraminal narrowing. Minimal central canal narrowing is seen. C3-C4: The disc height is well-preserved. Loss of disc signal is seen at this level. Mild to moderate disc osteophyte complex is seen. There is at least moderate facet hypertrophy seen at this level. There is moderate to severe left-sided and at least moderate right-sided neural foraminal narrowing. Mild to moderate central canal narrowing is seen. There is associated mass effect upon the ventral spinal cord. C4-C5: The disc height is well-preserved. Loss of disc signal is seen at this level. A mild degree of generalized disc osteophyte complex is seen. There is a mild central disc osteophyte protrusion seen. Moderate facet joint hypertrophy is seen. There is at least moderate left-sided and moderate right-sided neural foraminal narrowing. Mild to moderate central canal narrowing is seen. There is associated mass effect upon the ventral spinal cord. C5-C6: At least moderate loss of disc height and disc signal can be seen. At least moderate disc osteophyte complex is seen. There is a central/left disc osteophyte protrusion seen. Uncovertebral joint hypertrophy is seen at this level. Moderate facet joint hypertrophy is seen. There is moderate to severe bilateral neural foraminal narrowing seen. Moderate to severe central canal narrowing is seen, with associated ventral cord flattening. C6-C7: The disc height is well-preserved. Loss of disc signal is seen at this level. Mild to moderate disc osteophyte complex is seen. Moderate facet joint hypertrophy is seen. There is at least moderate left-sided and [id number] right-sided neural foraminal narrowing. Mild to moderate central canal narrowing is seen. C7-T1: Normal appearance. IMPRESSION: Multiple levels of cervical spine degenerative change are seen, which are worst at the C5-C6 level. Straightening of the normal cervical lordosis is seen, which is commonly observed in patients with muscular spasm. Dictated by: Ry Guthrie M.D. on 04/09/2022 at 17:00 Approved by: Ry Guthrie M.D. on 04/09/2022 at 17:04
== END ==
PROVIDERS: PCP Internal Medicine; Referring Provider Internal Medicine; Visit Provider Internal Medicine
DX: M47.812 Spondylosis without myelopathy or radiculopathy, cervical region (principal)
CPT/HCPCS: 72141

== ENCOUNTER → 2022-05-17 10:18 | Outpatient (CLI) | payer MEDICARE, SELFPAY ==
[2019-09-14 13:41] VITALS: BMI 35.6
[2022-05-17 10:45] LABS: COVID19 -Nasal RAPID Negative (Negative)
== END ==
PROVIDERS: PCP Internal Medicine; Visit Provider Physical Medicine & Rehabilitation
DX: Z20.822 Contact with and (suspected) exposure to COVID-19 (principal)
CPT/HCPCS: 87635; C9803

== ENCOUNTER 2022-05-18 08:48 | Outpatient (CLI) | payer MEDICARE, SELFPAY ==
[2019-09-14 13:41] VITALS: BMI 35.6
[2022-05-18] VITALS (8 sets, daily range): BP systolic 120–192; BP diastolic 60–91; PULSE 69–75; RESP 12–20; TEMP 36.3; O2SAT 96–98
--- NOTE | 2022-05-18 08:49 | DI.RAD.S_ITS ---
PROCEDURE: PAIN C/T INTERLAMINAR INJECT INDICATIONS: SPONDYLOSIS COMPARISON: [facility], CR, XR CERVICAL SPINE 2V OR 3V, 03/26/2022, 17:29. FINDINGS: Fluoroscopic spot filming was performed to verify placement of spinal needles at the C6-7 level, as labeled on the films. Appropriate location of the needle tip was confirmed by injection of iodinated contrast. IMPRESSION: Fluoroscopic guidance used for epidural steroid injection procedure. Dictated by: Thomas Hussein M.D. on 05/18/2022 at 10:56 Approved by: Thomas Hussein M.D. on 05/18/2022 at 10:58
[2022-05-18] MEDS: MIDAZOLAM 2 MG/2 ML VIAL IV (09:40)
[2022-05-18] MEDS: IOPAMIDOL 15 ML VIAL 3 ML INJ (09:45)
[2022-05-18] MEDS: BUPIVACAINE 0.25% (PF) VIAL 2 ML INJ (09:45)
[2022-05-18] MEDS: DEXAMETHASONE 10 MG/ML VIAL 30 MG INJ (09:46)
--- NOTE | 2022-05-18 09:58 | P.PCN_ITS ---
Date/Time/Diagnoses Date of procedure: 05/18/22 Time of procedure: 09:58 Pre-procedure diagnosis: 1. CERVICAL STENOSIS, 2. CERVICAL HNP WITH UPPER EXTREMITY RADICULAR FEATURES Post-procedure diagnosis: same Procedure Notes Procedure: 1. FLUORSCOPICALLY GUIDED CONTRAST CONTROLLED INTERLAMINAR EPIDURAL STEROID INJECTION - C6/7 TL LILIA Indications: Jihan is referred by Dr. Bunch for treatment of Cervical HNP with Upper Extremity Paresthesias. Physician: Sidney Billingsley Total Fluoroscopy time (seconds): 33 Total sedation minutes: 14 Complications: none Procedure in detail & Post-procedure care: FINDINGS Cervical Stenosis due to disc deterioration and nerve root irritation and nerve root irritation DESCRIPTION OF PROCEDURE Fluoroscopically guided, contrast-controlled C6/7 translaminar epidural steroid injection with conscious sedation. Following review of allergy and review of potential side effects and complications, including, but not necessarily limited to, infection, allergic reaction, local tissue breakdown, temporary as well as permanent nerve injury, stroke, paralysis, and possible , the patient indicated that patient understood and agreed to proceed. An informed consent document was signed by the patient, witnessed by a nurse, and placed in the patient's chart. Additionally, other treatment options including modalities, medications, and physical therapy were reviewed with the patient. After review of previous anaesthesic history and IV conscious sedation the patient was deemed safe to proceed with today?s procedure with IV conscious sedation as ASA class II designation. Safety time-out was performed to confirm patient ID, procedure to be performed and site of procedure. IV sedation was accomplished with a combination of 2mg of Versed administered by the RN after DO order, titrated to patient comfort during the course of the procedure while the patient remained responsive to all verbal commands. In the prone position, following sterile prep and drape of the cervical region, the C6/7 translaminar space was identified fluoroscopically. The skin was anesthetized via a 25-gauge 1.5-inch needle with 1% lidocaine solution. At this point, a 25-gauge, 2.5-inch short bevel spinal needle was atraumatically introduced and advanced under fluoroscopic guidance into epidural space at the C6/7 translaminar space. Depth was confirmed on lateral view. Radiological data, including multiple fluoroscopic views of the cervical spine, reveal a spinal needle at the C6/7 translaminar space. Lateral views then show placement of the needle in the epidural space. Subsequent views show contrast material flowing superiorly and inferiorly in the epidural space. DSA fluoroscopy with live contrast injection, once again, confirmed no vascular or intrathecal uptake. At this point, using loss of resistance technique with saline and air, the epidural space was entered. Following negative aspiration, injection of approximately 1.5 cc of Isovue-200 with live fluoroscopy in the AP view confirmed epidural flow in the epidural space without vascular or intrathecal uptake observed. Subsequently, a test dose of 1 cc of 1% lidocaine solution was injected and patient was observed for two minutes without signs or symptoms of complications, including abdominal pain, shortness of breath, bilateral upper or lower extremity weakness, nausea and vomiting, prior to steroid injection. At this point, 3cc or 30mg of dexamethasone was then injected without incident. The patient tolerated the procedure well without signs or symptoms of complic ations prior to being transferred to the recovery area for further monitoring, The patient was then transferred to the recovery area where they were observed for an appropriate period of time after the injection. The patient reported a VAS score of 6 prior to the procedure and a post-procedure VAS of 0. POST OP INSTRUCTIONS The patient was provided a Pain Log to continue to record their response to the target-specific procedure prior to follow-up visit with the referring provider. Additionally, specific post-injection care instructions and a contact number to our office were provided if concerns arise regarding possible complications associated with the procedure are suspected.
== END 2022-05-18 10:22 | disposition home or self-care (01) ==
LOC: RAD 08:48
PROVIDERS: PCP Internal Medicine; Referring Provider Physical Medicine & Rehabilitation; Visit Provider Physical Medicine & Rehabilitation
DX: M48.02 Spinal stenosis, cervical region (principal); M50.123 Cervical disc disorder at C6-C7 level with radiculopathy
CPT/HCPCS: 62321; 99152; J1100; J2250

== ENCOUNTER → 2022-07-06 10:16 | Outpatient (CLI) | payer MEDICARE, SELFPAY ==
[2019-09-14 13:41] VITALS: BMI 35.6
[2022-07-06 12:20] LABS: COVID19 -Nasal RAPID Negative (Negative)
== END ==
PROVIDERS: PCP Internal Medicine; Visit Provider Physical Medicine & Rehabilitation
DX: Z20.822 Contact with and (suspected) exposure to COVID-19 (principal)
CPT/HCPCS: 87635; C9803

== ENCOUNTER 2022-07-08 09:15 | Outpatient (CLI) | payer MEDICARE, SELFPAY ==
[2019-09-14 13:41] VITALS: BMI 35.6
[2022-07-08] VITALS (9 sets, daily range): BP systolic 131–210; BP diastolic 61–101; PULSE 69–82; RESP 15–20; TEMP 36.2; O2SAT 95–99
--- NOTE | 2022-07-08 09:16 | DI.RAD.S_ITS ---
PROCEDURE: PAIN C/T FACET INJ/BLK 1ST L INDICATIONS: SPINAL STENOSIS COMPARISON: None. FINDINGS: Fluoroscopic spot filming was performed to verify placement of spinal needles at the left C5-6 and left C6-7 level(s), as labeled on the films. Appropriate location(s) of the needle tip(s) was confirmed by injection of iodinated contrast. IMPRESSION: Fluoroscopic support for cervical spine facet injection of the left C5-6 and C6-7 levels. Please see separate procedure note for further details. Dictated by: Kevin Grier M.D. on 07/08/2022 at 10:55 Approved by: Kevin Grier M.D. on 07/08/2022 at 10:57
[2022-07-08] MEDS: MIDAZOLAM 2 MG/2 ML VIAL 4 MG IV (10:12)
[2022-07-08] MEDS: IOPAMIDOL 15 ML VIAL 3 ML INJ (10:13)
[2022-07-08] MEDS: BUPIVACAINE 0.5% (PF) VIAL 2 ML INJ (10:13)
[2022-07-08] MEDS: DEXAMETHASONE 10 MG/ML VIAL 20 MG INJ (10:13)
--- NOTE | 2022-07-08 10:21 | P.PCN_ITS ---
Date/Time/Diagnoses Date of procedure: 07/08/22 Time of procedure: 10:21 Pre-procedure diagnosis: 1. FACET ARTHROPATHY 2. AXIAL NECK PAIN Post-procedure diagnosis: same Procedure Notes Procedure: 1. FLUOROSCOPICALLY GUIDED, CONTRAST-CONTROLLED LEFT C5/6 AND C6/7 FACET JOINT INJECTIONS WITH CONSCIOUS SEDATION. Indications: Jihan is referred by Dr. Bunch for treatment of Axial Neck Pain Physician: Sidney Billingsley Total Fluoroscopy time (seconds): 9 Total sedation minutes: 10 Complications: none Procedure in detail & Post-procedure care: DESCRIPTION OF PROCEDURE Fluoroscopically guided, contrast-controlled left C5/6 and C6/7 facet joint injections with conscious sedation. Following review of allergy and review of potential side effects and complications, including, but not necessarily limited to, infection, allergic reaction, local tissue breakdown, stroke, temporary or permanent nerve injury and paralysis, the patient indicated that the patient understood and agreed to proceed. An informed consent document was signed by the patient, witnessed by a nurse, and placed in the patient's chart. Additionally, other treatment options including medications, modalities, and physical therapy were reviewed with the patient. After review of previous anaesthesic history and IV conscious sedation the patient was deemed safe to proceed with today?s procedure with IV conscious sedation as ASA class II designation. Safety time-out was performed to confirm patient ID, procedure to be performed and site of procedure. IV sedation was accomplished with a combination of 4mg of Versed was administered by the RN after DO order, titrated to patient comfort during the course of the procedure while the patient remained responsive to all verbal commands In the prone position, following sterile prep and drape of the cervical spine region, the posterior aspect of the left C5/6 and C6/7 facet joints were identified fluoroscopically. The skin was anesthetized via a 25-gauge 1.5-inch needle with 1% lidocaine solution into the corresponding facet joints. At this point, a 25-gauge 2.5-inch spinal needle was atraumatically introduced and advanced under fluoroscopic guidance into the corresponding facet joints. Following negative aspiration, injections of approximately 0.2cc of Isovue 200 confirmed interarticular placement without vascular uptake. At this point, a total of 1cc including 0.5cc or 5mg of dexamethasone combined with 0.5cc of 1% lidocaine solution was injected without complication into each of the corresponding facet joints. The procedure tolerated the procedure well without signs or symptoms of complications prior to transfer to the recovery area continued monitoring without incident. The patient was then transferred to the recovery area where they were observed for an appropriate period of time after the injection. The patient reported a VAS score of 7 prior to the procedure and a post- procedure VAS of 0. POST OP INSTRUCTIONS They were provided a Pain Log to continue to record their response to the target-specific procedure prior to their follow-up visit with their referring physician. Additionally, specific post-injection care instructions and a contact number to our office were provided if concerns arise regarding possible complications associated with the procedure are suspected.
== END 2022-07-08 10:47 | disposition home or self-care (01) ==
LOC: RAD 09:16
PROVIDERS: PCP Internal Medicine; Referring Provider Physical Medicine & Rehabilitation; Visit Provider Physical Medicine & Rehabilitation
DX: M47.812 Spondylosis without myelopathy or radiculopathy, cervical region (principal)
CPT/HCPCS: 64490; 64491; 99152; J1100; J2250

== ENCOUNTER → 2022-08-26 09:38 | Outpatient (CLI) | payer MEDICARE, SELFPAY ==
[2019-09-14 13:41] VITALS: BMI 35.6
[2022-08-26 11:04] LABS: Hematocrit 42.1 % (41-53); Hemoglobin 13.9 g/dL (13.5-17.5); Mean Corpuscular HGB Conc 33.1 % (30-36); Mean Corpuscular Hemoglobin 29.9 PG (26-34); Mean Corpuscular Volume 90.3 fL (80-100); Platelet Count 222 X10^3/uL (150-400); Red Blood Cell Count 4.66 X10^6/uL (4.5-5.9); Red Cell Distribution Width 13.8 % (11.6-14.8); White Blood Cell Count 5.1 X10^3/uL (4.5-11.0)
[2022-08-26 11:26] LABS: Alanine Aminotransferase 37 IU/L (<50); Albumin 4.2 g/dL (3.5-5.0); Albumin Globulin Ratio 1.4 (1.0-2.8); Alkaline Phosphatase 68 U/L (38-126); Aspartate Aminotransferase 35 IU/L (17-59); BUN Creatinine Ratio 18.1 (6-22); Bilirubin Total 0.7 mg/dL (0.2-1.3); Blood Urea Nitrogen 17 mg/dL (9-20); Calcium 8.9 mg/dL (8.4-10.2); Carbon Dioxide 26 mmol/L (22-32); Chloride 105 mmol/L (98-107); Cholesterol 149 mg/dL (140-199); Estimated Glomerular Filt Rate > 60 mL/min (>60); Globulin 3.1 g/dL (1.7-4.1); Glucose 104 mg/dL (80-110); HDL Cholesterol 60 mg/dL (40-60); HEMOLYSIS < 15 (0-50); LDL Cholesterol Calculated 81 mg/dL (<100); Potassium 4.5 mmol/L (3.4-5.1); Sodium 139 mmol/L (137-145); Total Protein 7.3 g/dL (6.3-8.2); Triglycerides 41 mg/dL (35-150)
[2022-08-26 11:53] LABS: Prostate Specific Antigen 1.18 ng/mL (0.10-4.00)
[2022-08-26 11:55] LABS: TSH w/ Reflex to FT4 5.72 uIU/mL (0.47-4.68)
== END ==
PROVIDERS: PCP Internal Medicine; Referring Provider Internal Medicine; Visit Provider Internal Medicine
DX: E78.2 Mixed hyperlipidemia (principal); N40.0 Benign prostatic hyperplasia without lower urinary tract symptoms; I10 Essential (primary) hypertension
CPT/HCPCS: 36415; 80053; 80061; 84153; 84439; 84443; 85027

== ENCOUNTER 2023-01-03 12:14 | Day surgery (SDC) | payer MEDICARE, SELFPAY ==
[2019-09-14 13:41] VITALS: BMI 35.6
--- NOTE | 2023-01-03 | PATH_ITS ---
[facility] Accession Number: [id number] No. of containers..01 Tissue . 01 Material submitted: . colon - CECUM POLYP . 01 Clinical history: . COLONOSCOPY . 01 Diagnosis: Cecum, Polyp, Biopsy: Tubular adenoma. MRV 01/06/2023 1305 Local . 01 Electronically signed: . Regi Alanis MD, Pathologist NPI- [id number] . 01 Gross description: . CECUM POLYP: Received in formalin is 1 fragment(s) of rowley, soft tissue measuring 0.2 x 0.2 x 0.1 cm submitted entirely in 1 cassette(s) /CPE 01/04/2023 0917 Local . 01 Pathologist provided ICD-10: D12.0 . 01 CPT . 279602 Specimen Comment: A courtesy copy of this report has been sent to [phone] Performed at: 01 [facility] [address] [place] [address], [place], [place] [id number] MD Rolando Davis MD Phone: [phone]
[2023-01-03 12:29] VITALS: BMI 34.0
[2023-01-03] MEDS: LACTATED RINGERS 1,000 ML 42 ML IV (12:35)
[2023-01-03 12:38] VITALS: BP 178/86; PULSE 96; RESP 18; TEMP 37; O2SAT 96
--- NOTE | 2023-01-03 13:09 | PM.HP.1 ---
History of Present Illness History of Present Illness Date Patient Seen: 01/03/23 Time Patient Seen: 13:09 Chief complaint: Colonoscopy Narrative: Personal history of colon polyps Patient History Medical History Bilateral bunions Bilateral carpal tunnel syndrome Bilateral knee pain Cervical radiculopathy at C6 Colon polyps Degenerative joint disease of cervical spine Edema Enlarged prostate Essential hypertension Facet arthropathy, cervical Foot pain Hearing impaired History of colonic polyps HLD (hyperlipidemia) HNP (herniated nucleus pulposus), cervical HTN (hypertension) Medicare annual wellness visit, initial Mixed hyperlipidemia Neck pain Nerve damage Obstructive sleep apnea RANJIT (obstructive sleep apnea) Osteoarthritis Primary osteoarthritis involving multiple joints Vertigo Surgical History Anesthesia History of knee replacement No history of previous surgery Family & Social History Family History Father Alzheimer's dementia Grandmother History of heart disease Social History: household members spouse Tobacco & Substance use: Tobacco type cigarettes,cigars,smokeless tobacco Smoking Status Former smoker alcohol intake current alcohol intake frequency 0-2 drinks per day Substance Use Type marijuana Meds Home Medications and Allergies Home Medications Medication Instructions Recorded Confirmed Type carisoprodol 350 mg tablet 350 mg PO TID PRN muscle pain #60 05/14/22 01/03/23 Rx tabs celecoxib 200 mg capsule (Celebrex) 200 mg PO DAILY #90 caps 08/09/22 01/03/23 Rx losartan 100 mg tablet 100 mg PO DAILY #90 tabs 08/09/22 01/03/23 Rx rosuvastatin 10 mg tablet 10 mg PO QAM #90 tabs 08/09/22 01/03/23 Rx tramadol 50 mg tablet 50 mg PO BID PRN Pain #180 tabs 08/09/22 01/03/23 Rx aspirin 81 mg tablet,delayed 81 mg PO DAILY 01/03/23 01/03/23 History release Allergies Allergy/AdvReac Type Severity Reaction Status Date / Time No Known Drug Allergies Allergy Unknown Verified 01/03/23 12:25 [NO KNOWN DRUG ALLERGIES] Review of Systems Review of Systems ROS: Yes All systems reviewed with the patient and are negative except as otherwise documented Exam Vital Signs (past 8 hours): - 01/03/23 12:38 Temperature 98.6 F Pulse Rate 96 H Respiratory Rate 18 Blood Pressure 178/86 H Pulse Oximetry 96 Oxygen Delivery Method Room Air Oxygen Delivery Method Room Air Const General: cooperative HENMT Head: normal to inspection Eyes General: appearance normal, both eyes and all related structures Neck Neck: normal visual inspection Chest Chest: normal inspection of the chest Resp Effort & Inspection: normal respiratory effort Cardio Rate: regular rate GI Inspection: normal to inspection Skin General: no rashes or lesions noted Neuro General: patient alert and patient awake Extrem General: normal to inspection and no pedal edema Psych Appearance: grossly normal Assessment & Plan Assessment & Plan narrative: 67-year-old male with a personal history of colon polyps. Colonoscopy is pursued today. Time Spent With Patient Critical Care time: I spent a total of [] minutes of critical care time on this patient's care today; this time is exclusive of procedural time.
--- NOTE | 2023-01-03 13:10 | PM.PREOP ---
Pre-operative Note Interval Note History & Physical reviewed/Exam performed by Physician: Yes Changes to H&P: No ASA Class (for procedural sedation): III
--- NOTE | 2023-01-03 13:32 | P.OP.COLON_ITS ---
Operative Date/Time/Diagnoses Date of procedure: 01/03/23 Time of procedure: 13:32 Pre-op diagnosis: Personal history of colon polyps Post-op diagnosis: same Procedure & Clinicians Study performed: Colonoscopy with cold forceps polypectomy Same procedure as scheduled: Yes Indications: Personal history of colon polyps Surgeon: Donald Rutherford Procedure Notes SCOAP/Timeout: Done Procedure in detail: After the risks and benefits were explained, written and verbal informed consent was obtained. The patient was brought into the procedure room and placed into the left lateral decubitus position. Please see anesthesia notes for sedation details. Digital rectal examination was accomplished. The scope was introduced into the patient and advanced under direct visualization to the cecum as identified by the appendiceal orifice and ileocecal valve. The scope was slowly withdrawn to carefully examine the mucosa for any defects or lesions. Comprehensive imaging was accomplished throughout the rectum including the d entate line. The colon was decompressed, the scope was then removed from the patient who tolerated the procedure well. Adult colonoscope Bowel prep adequate Scope withdrawal time: 8 minutes Sedation minutes: 15 Complications: none Impression: Extensive diverticulosis was encountered in the sigmoid extending all the way into the ascending. There was a diminutive polyp perhaps 4 mm in greatest dimension removed with cold forceps from the cecum. Grade 2 internal hemorrhoids were noted. Endoscopic diagnosis 1. Colon polyp 2. Diverticulosis 3. Grade 2 hemorrhoids Post-procedure Plan for aftercare: 1. Await histopathology 2. Repeat colonoscopy 5 years considering history of multiple adenomatous colon polyps. Disposition: PACU
[2023-01-03 13:34] VITALS: BP 100/67; PULSE 77; RESP 12; TEMP 36.6; O2SAT 92
[2023-01-03 13:38] VITALS: BP 104/66; PULSE 74; RESP 10; O2SAT 92
[2023-01-03 13:43] VITALS: BP 129/82; PULSE 77; RESP 14; TEMP 36.4; O2SAT 96
== END 2023-01-03 14:00 | disposition home or self-care (01) ==
PROVIDERS: PCP Internal Medicine; Referring Provider Internal Medicine Gastroenterology; Visit Provider Internal Medicine Gastroenterology
PROC: 0DJD8ZZ Inspection of Lower Intestinal Tract, Via Natural or Artificial Opening Endoscopic (ICD-10-PCS; CPT 45378; principal; 2023-01-03 13:30)
DX: Z12.11 Encounter for screening for malignant neoplasm of colon (principal); Z86.010 Personal history of colon polyps; K57.30 Diverticulosis of large intestine without perforation or abscess without bleeding; K64.1 Second degree hemorrhoids; D12.0 Benign neoplasm of cecum
CPT/HCPCS: 45380; J2704; J3010

== ENCOUNTER → 2023-07-19 14:37 | Outpatient (CLI) | payer MEDICARE, SELFPAY ==
[2019-09-14 13:41] VITALS: BMI 35.6
--- NOTE | 2023-07-19 14:48 | DI.MRI.S_ITS ---
PROCEDURE: MR HIP LT WO CON INDICATIONS: UNILATERAL PRIMARY OSTEOARTHRITIS LEFT HIP TECHNIQUE: Noncontrast coronal T1 spin echo and STIR through the bony pelvis. Coronal and axial T2 fast spin echo with fat saturation, sagittal T1 spin echo, and oblique axial T2 fast spin echo with fat saturation through the hip. COMPARISON: [facility] [place] [facility], CR, XR PELVIS WITH LATERAL HIP LEFT, 05/20/2023, 11:51. FINDINGS: Image quality: Degraded by technical factors. Bones and joints: Mild periarticular osteophyte formation at the left hip joint. Moderate degenerative marrow edema within the lateral humeral head and left superomedial acetabulum. Bone marrow of the pelvic ring and proximal femurs show normal signal throughout. No intraosseous lesions or fractures. No avascular necrosis of the femoral heads. The visualized lower lumbar spine appears normally aligned. Left hip joint effusion. Tendons and ligaments: The gluteus medius and minimus tendons appear intact, without associated muscle atrophy. Mild T2 signal elevation adjacent to the femoral insertion site of the left gluteus medius and minimus tendons. The nearby proximal iliotibial band also appears intact. The iliopsoas tendon appears intact, without adjacent bursal fluid collections or evidence for impingement syndrome. The origin of the hamstring tendon is intact at the ischial tuberosity, as well as the associated sacrotuberous ligament. There is mild T2 signal elevation within the proximal hamstring tendon. The straight and reflected heads of the rectus femoris muscle origin appear intact, as well as the conjoint tendon. The ligamentum teres appears intact where visualized. Labrum and cartilage: Diffuse left hip labral tearing. Moderate articular cartilage loss involving the left hip joint. The alpha angle of the femur is within normal limits at less than 55 degrees. Soft tissues: Visualized muscles demonstrate normal bulk and internal signal. Quadratus femoris muscle demonstrates no internal edema to suggest ischiofemoral impingement. The proximal sciatic neurovascular bundle appears normal adjacent to the hamstring tendons. No free pelvic fluid. Bladder wall thickness is normal. Genitourinary structures and bowel loops appear normal where visualized. IMPRESSION: 1. Left hip osteoarthritis associated with left hip labral tearing. Left hip joint effusion. 2. Mild insertional tendinitis of the left gluteus medius and minimus tendons. 3. Mild left hamstring tendinopathy. Dictated by: Emily Post M.D. on 07/19/2023 at 15:56 Approved by: Emily Post M.D. on 07/19/2023 at 15:58
[2023-07-19 14:56] LABS: Add Manual Diff / Slide Review NO; Basophils Absolute Auto 0 /uL (0-100); Basophils Percent Auto 0.6 % (0-2); Eosinophils Absolute Auto 300 /uL (0-450); Eosinophils Percent Auto 4.1 % (2-4); Hematocrit 30.5 % (41-53); Hemoglobin 10.6 g/dL (13.5-17.5); Lymphocytes Absolute Auto 1500 /uL (1100-4500); Lymphocytes Percent Auto 24.1 % (25-40); Mean Corpuscular HGB Conc 34.8 % (30-36); Mean Corpuscular Hemoglobin 31.1 PG (26-34); Mean Corpuscular Volume 89.4 fL (80-100); Monocytes Absolute Auto 500 /uL (0-900); Monocytes Percent Auto 8.2 % (3-14); Neutrophils Absolute Auto 4000 /uL (1500-7000); Platelet Count 291 X10^3/uL (150-400); Red Blood Cell Count 3.41 X10^6/uL (4.5-5.9); Red Cell Distribution Width 13.3 % (11.6-14.8); White Blood Cell Count 6.3 X10^3/uL (4.5-11.0)
[2023-07-19 15:00] LABS: Appearance Urine UA CLEAR; Bilirubin Urine UA NEGATIVE (NEGATIVE); Color Urine UA YELLOW; Glucose Urine UA NEGATIVE (Negative); Ketones Urine UA TRACE (NEGATIVE); Leukocyte Esterase Urine UA NEGATIVE (NEGATIVE); Nitrite Urine UA NEGATIVE (Negative); Occult Blood Urine UA NEGATIVE (Negative); Protein Urine UA TRACE (Negative); Specific Gravity Urine UA >=1.030 (1.000-1.035); pH Urine UA 5.5 (4.5-8.0)
[2023-07-19 15:06] LABS: Hemoglobin A1C% w Est Avg Glu 5.1 % (4.0-6.0)
[2023-07-19 15:13] LABS: BUN Creatinine Ratio 19.4 (6-22); Blood Urea Nitrogen 20 mg/dL (9-20); Calcium 8.8 mg/dL (8.4-10.2); Carbon Dioxide 27 mmol/L (22-32); Chloride 101 mmol/L (98-107); Estimated Glomerular Filt Rate > 60 mL/min (>60); Glucose 137 mg/dL (80-110); HEMOLYSIS < 15 (0-50); Potassium 4.4 mmol/L (3.4-5.1); Sodium 137 mmol/L (137-145)
[2023-07-19 15:22] LABS: Bacteria Urine None Seen; Culture Indicated Urine Cult Not Indicated; Mucus Urine 1+ (Negative); Other Crystals Urine Few Amorphous; RBC Urine 0-1/HPF (0-5/HPF); Squamous Epithelial Cell Urine 0-1 /HPF (0-5/HPF); WBC Urine 0-1/HPF (0-5/HPF)
== END ==
PROVIDERS: PCP Internal Medicine; Referring Provider Orthopaedic Surgery; Visit Provider Orthopaedic Surgery
DX: Z01.818 Encounter for other preprocedural examination (principal); Z01.812 Encounter for preprocedural laboratory examination; M16.12 Unilateral primary osteoarthritis, left hip; M25.452 Effusion, left hip; S73.102A Unspecified sprain of left hip, initial encounter; M76.02 Gluteal tendinitis, left hip; R73.9 Hyperglycemia, unspecified; N39.0 Urinary tract infection, site not specified
CPT/HCPCS: 36415; 73721; 80048; 81001; 83036; 85025; 93005; 93010

== ENCOUNTER → 2023-09-05 10:42 | Outpatient (CLI) | payer MEDICARE, SELFPAY ==
[2019-09-14 13:41] VITALS: BMI 35.6
[2023-09-05 11:50] LABS: Reticulocyte Count, Percent 1.1 % (0.9-2.6)
[2023-09-05 11:51] LABS: Add Manual Diff / Slide Review NO; Basophils Absolute Auto 0 /uL (0-100); Basophils Percent Auto 0.9 % (0-2); Eosinophils Absolute Auto 300 /uL (0-450); Eosinophils Percent Auto 5.6 % (2-4); Hematocrit 40.7 % (41-53); Hemoglobin 13.6 g/dL (13.5-17.5); Lymphocytes Absolute Auto 1300 /uL (1100-4500); Lymphocytes Percent Auto 27.2 % (25-40); Mean Corpuscular HGB Conc 33.5 % (30-36); Mean Corpuscular Hemoglobin 30.1 PG (26-34); Mean Corpuscular Volume 89.9 fL (80-100); Monocytes Absolute Auto 500 /uL (0-900); Monocytes Percent Auto 10.4 % (3-14); Neutrophils Absolute Auto 2600 /uL (1500-7000); Neutrophils Percent Auto 55.9 % (50-75); Platelet Count 265 X10^3/uL (150-400); Red Blood Cell Count 4.53 X10^6/uL (4.5-5.9); Red Cell Distribution Width 14.1 % (11.6-14.8); White Blood Cell Count 4.6 X10^3/uL (4.5-11.0)
[2023-09-05 12:03] LABS: HEMOLYSIS < 15 (0-50); Iron 276 ug/dL (49-181)
[2023-09-05 12:14] LABS: Total Iron Binding Capacity 322 ug/dL (261-462); Transferrin 253 mg/dL (206-381)
[2023-09-05 12:15] LABS: Percent Iron Saturation 86 % (20-50)
[2023-09-05 12:42] LABS: Ferritin 19 ng/mL (18-464)
[2023-09-05 13:13] LABS: Folate 11.5 ng/mL (2.76-20.0); Vitamin B12 466 pg/mL (239-931)
== END ==
PROVIDERS: PCP Internal Medicine; Referring Provider Internal Medicine; Visit Provider Internal Medicine
DX: D64.9 Anemia, unspecified (principal); E53.8 Deficiency of other specified B group vitamins
CPT/HCPCS: 36415; 82607; 82728; 82746; 83540; 83550; 85025; 85045

== ENCOUNTER → 2024-03-12 09:19 | Outpatient (CLI) | payer MEDICARE, SELFPAY ==
[2024-03-05 15:50] VITALS: BMI 35.6
[2024-03-12 10:48] LABS: Hematocrit 43.1 % (41-53); Hemoglobin 14.6 g/dL (13.5-17.5); Mean Corpuscular Hemoglobin 30.7 PG (26-34); Mean Corpuscular Volume 90.5 fL (80-100); Platelet Count 253 X10^3/uL (150-400); Red Blood Cell Count 4.76 X10^6/uL (4.5-5.9); Red Cell Distribution Width 13.2 % (11.6-14.8)
[2024-03-12 10:54] LABS: Hemoglobin A1C% w Est Avg Glu 5.7 % (4.0-6.0)
[2024-03-12 11:04] LABS: HEMOLYSIS < 15 (0-50); Iron 124 ug/dL (49-181)
[2024-03-12 11:08] LABS: Alanine Aminotransferase 45 IU/L (<50); Albumin 4.8 g/dL (3.5-5.0); Albumin Globulin Ratio 1.5 (1.0-2.8); Alkaline Phosphatase 67 U/L (38-126); Aspartate Aminotransferase 36 IU/L (17-59); BUN Creatinine Ratio 20.4 (6-22); Bilirubin Total 0.7 mg/dL (0.2-1.3); Blood Urea Nitrogen 21 mg/dL (9-20); Calcium 9.6 mg/dL (8.4-10.2); Carbon Dioxide 28 mmol/L (22-32); Chloride 108 mmol/L (98-107); Cholesterol 176 mg/dL (140-199); Estimated Glomerular Filt Rate > 60 mL/min (>60); Globulin 3.2 g/dL (1.7-4.1); Glucose 109 mg/dL (80-110); HDL Cholesterol 68 mg/dL (40-60); HEMOLYSIS < 15 (0-50); LDL Cholesterol Calculated 99 mg/dL (<100); Potassium 5.2 mmol/L (3.4-5.1); Sodium 139 mmol/L (137-145); Triglycerides 46 mg/dL (35-150)
[2024-03-12 11:15] LABS: Percent Iron Saturation 40 % (20-50); Total Iron Binding Capacity 312 ug/dL (261-462); Transferrin 248 mg/dL (206-381)
[2024-03-12 11:38] LABS: TSH w/ Reflex to FT4 3.44 uIU/mL (0.47-4.68)
[2024-03-12 11:41] LABS: Ferritin 45 ng/mL (18-464)
== END ==
PROVIDERS: PCP Internal Medicine; Referring Provider Internal Medicine; Visit Provider Internal Medicine
DX: E78.2 Mixed hyperlipidemia (principal); R73.09 Other abnormal glucose; D50.9 Iron deficiency anemia, unspecified; N40.1 Benign prostatic hyperplasia with lower urinary tract symptoms; I10 Essential (primary) hypertension; N13.8 Other obstructive and reflux uropathy; D64.9 Anemia, unspecified; E53.8 Deficiency of other specified B group vitamins
CPT/HCPCS: 80053; 80061; 82728; 83036; 83540; 83550; 84153; 84443; 85027

== ENCOUNTER → 2024-07-17 10:14 | Outpatient (CLI) | payer MEDICARE, SELFPAY ==
[2024-03-05 15:50] VITALS: BMI 35.6
--- NOTE | 2024-07-17 10:15 | DI.CT.S_ITS ---
PROCEDURE: CT SINUS SCREEN WO CON INDICATIONS: chronic sinusitis TECHNIQUE: Noncontrast 3.0 mm axial images acquired from the frontal sinuses to the mid-sella, with coronal and sagittal reformats. For radiation dose reduction, the following was used: automated exposure control, adjustment of mA and/or kV according to patient size. COMPARISON: None. FINDINGS: Image quality: Excellent. Sinuses: Minimal to mild mucosal thickening with appearance of frothy fluid at the base of the left maxillary sinus. Minimal scattered areas of mucosal thickening are present within the remaining sinuses. Ostiomeatal Complexes: Ostiomeatal complexes are patent. Miscellaneous: Visualized intra-orbital contents are normal. No edwige bullosa or paradoxical turbinate curvature. Leftward nasal septal deviation. IMPRESSION: Minimal to mild appearance of frothy fluid in the base of left maxillary sinus suggestive of acute on chronic sinusitis. Dictated by: Candis Hodges M.D. on 07/17/2024 at 17:42 Approved by: Candis Hodges M.D. on 07/17/2024 at 17:43
== END ==
PROVIDERS: PCP Internal Medicine; Referring Provider Internal Medicine; Visit Provider Internal Medicine
DX: J32.9 Chronic sinusitis, unspecified; J30.9 Allergic rhinitis, unspecified; J34.2 Deviated nasal septum
CPT/HCPCS: 70486

== ENCOUNTER → 2024-12-03 15:57 | Outpatient (CLI) | payer MEDICARE, SELFPAY ==
[2024-03-05 15:50] VITALS: BMI 35.6
[2024-12-03 16:51] LABS: Hematocrit 43.3 % (41-53); Hemoglobin 14.6 g/dL (13.5-17.5); Mean Corpuscular HGB Conc 33.7 % (30-36); Mean Corpuscular Hemoglobin 30.9 PG (26-34); Mean Corpuscular Volume 91.5 fL (80-100); Platelet Count 247 X10^3/uL (150-400); Red Blood Cell Count 4.73 X10^6/uL (4.5-5.9); Red Cell Distribution Width 13.8 % (11.6-14.8); White Blood Cell Count 6.7 X10^3/uL (4.5-11.0)
[2024-12-03 17:06] LABS: HEMOLYSIS < 15 (0-50); Iron 108 ug/dL (49-181)
[2024-12-03 17:19] LABS: Percent Iron Saturation 45 % (20-50); Total Iron Binding Capacity 239 ug/dL (261-462); Transferrin 229 mg/dL (206-381)
[2024-12-03 17:42] LABS: Ferritin 99 ng/mL (18-464)
== END ==
PROVIDERS: PCP Internal Medicine; Referring Provider Internal Medicine; Visit Provider Internal Medicine
DX: E61.1 Iron deficiency (principal)
CPT/HCPCS: 36415; 82728; 83540; 83550; 85027

== ENCOUNTER → 2025-09-25 12:02 | Outpatient (CLI) | payer MEDICARE, SELFPAY ==
[2024-03-05 15:50] VITALS: BMI 35.6
[2025-09-25 13:12] LABS: Hemoglobin A1C% w Est Avg Glu 5.5 % (4.0-6.0)
[2025-09-25 13:17] LABS: Blood Urea Nitrogen 16 mg/dL (9-20); Calcium 9.9 mg/dL (8.4-10.2); Carbon Dioxide 27 mmol/L (22-32); Chloride 103 mmol/L (98-107); Cholesterol 191 mg/dL (140-199); Estimated Glomerular Filt Rate > 60 mL/min (>60); Glucose 102 mg/dL (70-99); HDL Cholesterol 70 mg/dL (40-60); Potassium 5.0 mmol/L (3.4-5.1); Sodium 140 mmol/L (137-145); Triglycerides 49 mg/dL (35-150)
[2025-09-25 13:49] LABS: HEMOLYSIS < 15 (0-50); Prostate Specific Antigen 1.63 ng/mL (0.10-4.00)
== END ==
PROVIDERS: PCP Internal Medicine; Referring Provider Internal Medicine; Visit Provider Internal Medicine
DX: R73.01 Impaired fasting glucose (principal); I10 Essential (primary) hypertension; N40.1 Benign prostatic hyperplasia with lower urinary tract symptoms; E78.2 Mixed hyperlipidemia; N13.8 Other obstructive and reflux uropathy
CPT/HCPCS: 36415; 80048; 80061; 83036; 84153; 84450